=== PATIENT | female | born 1950 | race Caucasian/White ===

== ENCOUNTER 2021-04-11 12:12 | Emergency (ER) | payer OTHER, SELFPAY ==
[2021-04-11] VITALS (16 sets, daily range): BP systolic 138–159; BP diastolic 54–93; PULSE 53–65; RESP 12–24; TEMP 36.8; O2SAT 90–99
--- NOTE | ~2021-04-11 | XR_ITS ---
EXAMINATION: XR chest 2V DATE: 04/11/2021 13:06 INDICATION: Shortness of breath. Cough and wheezing. TECHNIQUE: Frontal and lateral views of the chest were obtained. COMPARISON: Chest 2 views 11/02/2010 FINDINGS: There are airspace opacities in left mid and lower lung zones. No pleural effusion or pneum othorax. Cardiomegaly is noted. There is a left chest wall pacer with leads in the right atrium and r ight ventricle. IMPRESSION: 1. Airspace opacities in left mid and lower lung zones, consistent with atelectasis versus pneumonia. 2. Cardiomegaly. Reviewed, dictated and finalized at location A. WORKER GENERAL IMPRESSION: 1. Airspace opacities in left mid and lower lung zones, consistent with atelect asis versus pneumonia. 2. Cardiomegaly.
--- NOTE | 2021-04-11 12:26 | ECG_ITS ---
Measurements Intervals [place] Rate: 65 P: 80 NC: 186 QRS: 3 QRSD: 84 T: 44 QT: 403 QTc: 419 Interpretive Statements SINUS RHYTHM LOW QRS VOLTAGE IN PRECORDIAL LEADS BORDERLINE ECG Electronically Signed On 04-11-2021 13:10:58 AIR BRUSH OPERATOR by Dwight Emery D.O.
[2021-04-11 13:04] LABS: Alanine Aminotransferase 21 U/L (4-35); Albumin Level 3.6 g/dL (3.5-5.1); Alkaline Phosphatase 99 U/L (38-126); Anion Gap 7 mmol/L (8-16); Aspartate Amino Transferase 26 U/L (14-36); Bilirubin,Total 0.6 mg/dL (0.2-1.3); Blood Urea Nitrogen 14 mg/dL (7-17); Calcium 8.9 mg/dL (8.4-10.2); Carbon Dioxide 24 mmol/L (22-30); Chloride 107 mmol/L (98-107); Estimated CRCL calculation 75 ml/min; Estimated Glomerular Filt Rate > 60; Glucose 101 mg/dL (65-110); Sodium 138 mmol/L (137-145)
[2021-04-11 13:12] LABS: Basophils Percent Auto 0.2 % (0.2-1.2); Hematocrit 41.5 % (37.0-47.0); Hemoglobin 13.6 g/dL (12.0-15.0); Immature Granulocyte Absolute 0.02 K/mm3 (0.00-0.031); Immature Granulocyte Percent A 0.3 % (0-0.5); Immature Platelet Fraction Pct 3.1 % (0.9-11.2); Lymphocytes Absolute Auto 1.29 K/mm3 (0.9-3.2); Lymphocytes Percent Auto 19.9 % (18.3-44.2); Mean Corpuscular HGB Conc 32.8 g/dl (32-36); Mean Corpuscular Hemoglobin 29.8 pg (26-34); Mean Corpuscular Volume 90.8 fl (80-100); Mean Platelet Volume 10.1 fl (7.4-10.4); Monocytes Absolute Auto 0.4 K/mm3 (0.1-0.6); Monocytes Percent Auto 6.6 % (2.6-8.5); Neutrophils Absolute Auto 4.7 K/mm3 (1.3-6.7); Platelet Count Result 131 k/mm3 (150-375); Red Blood Count 4.57 M/mm3 (4.2-5.4); Red Cell Distribution Width 13.5 % (11.5-14.5); White Blood Count 6.5 K/mm3 (4.5-10.0)
--- NOTE | 2021-04-11 14:01 | ED.SOB ---
HPI - SOB/Dyspnea General Chief Complaint: Shortness of Breath/Dyspnea Stated Complaint: influenza/diff breathing Time Seen by Provider: 04/11/21 13:26 Source: patient History of Present Illness HPI Narrative: Patient presents with shortness of breath. Reports a history of COPD and is on chronic oxygen at 4 L at home. She initially presented to [place] was diagnosed with flu a few days ago was discharged home with Tamiflu and cough suppressants. Yesterday afternoon she had increasing shortness of breath which was worse today so she came to the ER for evaluation. Reports a productive cough and difficulty getting enough air but denies any focal areas of pain. Denies any lightheadedness denies any chest pain denies any nausea or vomiting. Related Data Allergies Allergy/AdvReac Type Severity Reaction Status Date / Time No Known Allergies Allergy Unverified 11/01/10 16:46 Review of Systems Review of Systems: CONSTITUTIONAL: Denies fever, chills, or sweats. EYES: Denies visual changes, redness, or discharge. ENT: Denies rhinorrhea, congestion, sore throat, or otalgia. CARDIOVASCULAR: Denies chest pain, palpitations, or edema. RESPIRATORY: Reports cough and shortness of breath GASTROINTESTINAL: Denies abdominal pain, nausea, vomiting, or diarrhea. GENITOURINARY: Denies dysuria or hematuria. SKIN: Denies rash or itching. MUSCULOSKELETAL: Denies back pain, joint pain, or myalgia. NEUROLOGIC: Denies headache, numbness, dizziness, or weakness. PSYCHIATRIC: Denies anxiety or depression. All systems reviewed & are unremarkable except as noted in HPI and below PMFSH Past Medical History Medical History (Updated 04/11/21 @ 16:53 by Yohannes Montana MD) COPD (chronic obstructive pulmonary disease) Social History Social History (Updated 04/11/21 @ 14:02 by Yohannes Montana MD) Substance use: never Exam Narrative: GENERAL: Well-appearing, well-nourished, and in no acute distress. HEAD: Normocephalic, atraumatic. EYES: PERRLA and EOMI. ENT: Nares clear, no rhinorrhea or epistaxis. Mucous membranes moist. NECK: Supple. No masses. No JVD CHEST: Diminished aeration all lung morales with diffuse wheezing HEART: Regular rate and rhythm. No murmur heard. Normal peripheral pulses. ABDOMEN: Soft, nontender, nondistended, normal active bowel sounds. EXTREMITIES: Normal range of motion. No edema. SKIN: Warm, dry, no rash. NEURO: No focal deficits. Alert and oriented x3. PSYCH: Normal mood and affect. Course Reevaluation(s) Reevaluation #1: Patient reports feeling much improved after DuoNeb therapy. Patient feels comfortable managing her symptoms at home she is satting 96% on room air Date: 04/11/21 Time: 16:48 Vital Signs Vital signs: Vital Signs Temperature 36.8 C 04/11/21 12:22 Pulse Rate 56 L 04/11/21 12:22 Respiratory Rate 24 H 04/11/21 12:22 Blood Pressure 159/71 H 04/11/21 12:22 Pulse Oximetry 90 04/11/21 12:22 Temperature 36.8 C 04/11/21 12:22 Pulse Rate 56 L 04/11/21 17:18 Respiratory Rate 19 04/11/21 17:18 Blood Pressure 154/77 H 04/11/21 17:18 Pulse Oximetry 95 04/11/21 17:18 MDM - SOB/Dyspnea MDM Narrative Medical decision making narrative: H&P as above, vss, pt looks clinically well, exam diffuse wheezing initially repeat exam improved, labs clinically unremarkable, img with atelectasis versus pneumonia, additional labs/img considered, symptomatic relief available as needed, on reevaluation pt continues to looks clinically well. Suspect continued influenza infection however given her history of COPD will treat for exacerbation as well, dns severe sepsis consider dehydration, pneumothorax. plan to tx/monitor as op w/ pcm f/u findings/plan discussed with pt, pt agree/comfortable with plan, return precautions given Lab Data Result diagrams: 04/11/21 12:35 04/11/21 12:35 Labs: Lab Results 04/11/21 04/11/21 Range/Units 12:35 12:35 WBC 6.5 (
[2021-04-11] MEDS: ALBUTEROL SULFATE NEB 2.5 MG/0.5 ML INH 15 MG INHALATION (14:25)
[2021-04-11] MEDS: IPRATROPIUM BR 0.02% INH SOLN 0.5 MG/2.5 ML VIAL 1.5 MG INHALATION (14:25)
[2021-04-11] MEDS: methylPREDNISolone SOD SUCC 125 MG VIAL IV PUSH (14:36)
--- NOTE | 2021-04-11 17:17 | PC.NURSE ---
Educated pt on diagnosis of COPD and Pneumonia pt states understanding and will take medication as prescribed
== END 2021-04-11 17:19 | disposition home or self-care (01) ==
PROVIDERS: Emergency Medicine; Emergency Provider Emergency Medicine; PCP Family Medicine Sports Medicine
DX: J44.9 Chronic obstructive pulmonary disease, unspecified (principal); Z99.81 Dependence on supplemental oxygen
CPT/HCPCS: 36415; 71046; 80053; 85025; 85055; 93005; 94640; 96374; 99284; J2930

== ENCOUNTER → 2021-07-13 03:04 | Outpatient (CLI) | payer OTHER, SELFPAY ==
[2021-07-13 12:16] LABS: SARS-CoV-2 RNA PCR Negative
== END ==
PROVIDERS: PCP Family Medicine Sports Medicine; Visit Provider Specialist
DX: Z01.812 Encounter for preprocedural laboratory examination (principal); Z20.822 Contact with and (suspected) exposure to COVID-19
CPT/HCPCS: C9803; U0003; U0005

== ENCOUNTER 2021-07-16 00:34 | Day surgery (SDC) | payer OTHER, SELFPAY ==
[2021-07-16] VITALS (7 sets, daily range): BP systolic 124–136; BP diastolic 57–75; PULSE 56–63; RESP 16–20; TEMP 36.3; O2SAT 96–98; BMI 51.8
[2021-07-16 09:29] LABS: Basophils Percent Auto 0.2 % (0.2-1.2); Hematocrit 46.3 % (37.0-47.0); Hemoglobin 14.9 g/dL (12.0-15.0); Immature Granulocyte Absolute 0.01 K/mm3 (0.00-0.031); Immature Granulocyte Percent A 0.2 % (0-0.5); Lymphocytes Absolute Auto 2.26 K/mm3 (0.9-3.2); Mean Corpuscular HGB Conc 32.2 g/dl (32-36); Mean Corpuscular Hemoglobin 28.8 pg (26-34); Mean Corpuscular Volume 89.6 fl (80-100); Mean Platelet Volume 10.9 fl (7.4-10.4); Monocytes Absolute Auto 0.5 K/mm3 (0.1-0.6); Monocytes Percent Auto 8.2 % (2.6-8.5); Neutrophils Absolute Auto 3.3 K/mm3 (1.3-6.7); Neutrophils Percent Auto 54.4 % (45.5-73.1); Platelet Count Result 161 k/mm3 (150-375); Red Blood Count 5.17 M/mm3 (4.2-5.4); Red Cell Distribution Width 13.8 % (11.5-14.5); White Blood Count 6.1 K/mm3 (4.5-10.0)
[2021-07-16 09:42] LABS: Anion Gap 11 mmol/L (8-16); Blood Urea Nitrogen 23 mg/dL (7-17); Calcium 9.1 mg/dL (8.4-10.2); Carbon Dioxide 25 mmol/L (22-30); Chloride 106 mmol/L (98-107); Estimated CRCL calculation 62 ml/min; Estimated Glomerular Filt Rate 55; Glucose 119 mg/dL (65-110); Potassium 3.8 mmol/L (3.4-5.0); Sodium 142 mmol/L (137-145)
[2021-07-16 09:44] LABS: INR 1.1; Prothrombin Time 13.5 Seconds (11.1-14.7)
--- NOTE | 2021-07-16 10:06 | WPDMODSED ---
Moderate Sedation Note-Pt Data Patient Data Diagnosis: Sick sinus syndrome with permanently implanted pacemaker at HAO coronary artery disease with previous PCI morbid obesity Present Complaint: this is a 71-year-old woman with coronary disease and a chronically implanted pacemaker for sick sinus syndrome. She also has a history of paroxysmal atrial fib and is currently in sinus rhythm. She has a pacemaker check in the office recently demonstrating HAO he is admitted today for generator change. Procedure to be performed/Plan: Pacemaker generator change Allergies Allergy/AdvReac Type Severity Reaction Status Date / Time adhesive tape AdvReac Rash Verified 07/16/21 09:14 Home Medications Medication Instructions Recorded Confirmed Type Anoro Ellipta 1 puff DAILY 07/16/21 07/16/21 History Bumex 2 mg PO DAILY 07/16/21 07/16/21 History Crestor 20 mg PO DAILY 07/16/21 07/16/21 History Effexor XR 150 mg PO DAILY 07/16/21 07/16/21 History Kenalog 0.1 % PRN 07/16/21 07/16/21 History Klor-Con 20 meq PO DAILY 07/16/21 07/16/21 History Nitrostat 0.4 mg PRN 07/16/21 07/16/21 History Zoloft 100 mg PO BID 07/16/21 07/16/21 History albuterol 90 mcg DAILY 07/16/21 07/16/21 History amlodipine 2.5 mg PO DAILY 07/16/21 07/16/21 History apixaban 5 mg PO BID 07/16/21 07/16/21 History levothyroxine 275 mcg PO DAILY 07/16/21 07/16/21 History nitroglycerin 400 mcg BYMOUTH PRN 07/16/21 07/16/21 History nystatin 1 dose TOPICAL PRN 07/16/21 07/16/21 History potassium chloride 20 meq PO DAILY 07/16/21 07/16/21 History sotalol 80 mg PO BID 07/16/21 07/16/21 History Sedation/Anesthesia: No previous sedation/anesthesia problems (including family history). [facility] Past Medical History Medical History (Updated 04/11/21 @ 16:53 by Yohannes Montana MD) COPD (chronic obstructive pulmonary disease) Social History Social History (Updated 04/11/21 @ 14:02 by Yohannes Montana MD) Substance use: never Mod Sed Physical Exam Physical Exam Pre Procedural Exam: Normal: Throat, Airway, Lungs, Heart Size, Heart Rate, Heart Rhythm, Neuro Exam and Extremities and Variation: Appearance ( morbidly obese lady no distress) Hours since solid foods: 12 Hours since liquid intake: 12 Mallampati Classification: class III Internal Medicine - PN: Obj Da Vital Signs Vital Signs: Vital Signs - 24 hr 07/16/21 09:17 Temperature 36.3 C L Pulse Rate 56 L Respiratory Rate 20 Blood Pressure 136/75 Pulse Oximetry 97 Labs CBC & Chem 7: 07/16/21 09:21 07/16/21 09:21 Labs: Laboratory Results - last 24 hr 07/16/21 07/16/21 07/16/21 09:21 09:21 09:21 WBC 6.1 RBC 5.17 Hgb 14.9 Hct 46.3 MCV 89.6 MCH 28.8 MCHC 32.2 RDW 13.8 Plt Count 161 MPV 10.9 H Immature Gran % (Auto) 0.2 Neut % (Auto) 54.4 Lymph % (Auto) 37.0 [place] % (Auto) 8.2 Eos % (Auto) 0.0 Baso % (Auto) 0.2 Lymph # (Auto) 2.26 [place] # (Auto) 0.5 Eos # (Auto) 0.0 Baso # (Auto) 0.0 Abs Immat Gran (auto) 0.01 Absolute Neuts (auto) 3.3 Absolute Nucleated RBC 0.0 Nucleated RBC % 0.0 PT 13.5 INR 1.1 Sodium 142 Potassium 3.8 Chloride 106 Carbon Dioxide 25 Anion Gap 11 BUN 23 H Creatinine 1.00 Estim Creat Clear Calc 62 Estimated GFR 55 L Glucose 119 H Calcium 9.1 ASA Classification/Sedation ASA Classification/Sedation ASA Class: III Emergent: No Risks: Risks, benefits and alternatives explained and patient/family accepted plan for sedation. Patient re-evaluated immediately prior to sedation.
--- NOTE | 2021-07-16 11:00 | ECG_ITS ---
Measurements Intervals [place] Rate: 59 P: 105 NV: 262 QRS: 17 QRSD: 93 T: 75 QT: 465 QTc: 464 Interpretive Statements ELECTRONIC ATRIAL PACEMAKER LOW QRS VOLTAGE IN PRECORDIAL LEADS [QRS DEFLECTION < 1.0 mV IN CHEST LEADS] COMPARED TO ECG 04/11/2021 12:30:38 ATRIAL PACING IS NOW SEEN Electronically Signed On 07-16-2021 14:32:09 CDT by Ramy Perez M.D.
--- NOTE | 2021-07-16 11:13 | P.PCNCC_ITS ---
Cardiac Cath Procedure Note Date of procedure:: 07/16/21 Performing physician:: Ramy Perez MD Indication:: permanent dual-chamber pacemaker for sick sinus syndrome found to be at HAO Brief clinical history:: this is a 71-year-old woman with coronary disease paroxysmal AFib and sick sinus syndrome for which he has a permanently implanted pacemaker device. Routine follow-up the device has been found to be at HAO. Procedure Procedure performed:: Explant of depleted pulse generator implant new dual-chamber pulse generator Sedation/Medication given:: fentanyl 50 mg Versed 2 mg case start time 10:41 a.m. case end time 11:08 a.m. Access site:: chronically implanted pocket in the left anterior chest wall Estimated blood loss:: minimal Procedure note:: patient was brought to the cardiac catheterization lab in the postabsorptive state the chronically implanted pacemaker device was easily identified in the left anterior chest wall. The area was prepped and draped in the normal sterile fashion. Anesthesia was then given above the pocket with 1% lidocaine. An incision was then made in the skin using a plasma blade and electrocautery was used to provide cutaneous hemostasis. The same PlasmaBlade was used to dissect the subcutaneous tissue and identify the fibrous pocket and this was then opened as well. A Metzenbaum scissors was used to resect some of the fibrous pocket the device was then easily removed from the pocket with the attached leads and was visually unremarkable in appearance. The leads were disconnected from the depleted generator using the torque wrench in the into connected to the new generator using the same torque wrench. The and pocket was irrigated with Ancef infused saline. Following this the entire assembly was placed back in the chronically created pocket. The incision was then closed in layers using 3-0 Vicryl in a interrupted fashion for the subcutaneous tissue and 4-0 Vicryl in a subcuticular running fashion for the skin. The wound was dressed with an Aquacel dressing. The patient tolerated the procedure well there were no apparent complications. Findings:: the explanted device is a Medtronic dual-chamber pacemaker model IPG RVDR01. serial [id number] originally implanted 11/01/2010. The new device is a Medtronic dual-chamber pacemaker model WIDR01. serial [id number]. device is programmed in the AAIR> DDDR mode. Lower rate limit 60 upper rhythm at 1:30 a.m. av delay 180/150 milliseconds. The atrial lead is a Medtronic bipolar lead [id number] serial [id number] the P waves are sensed at 1.5 mV the threshold is 1.0 volts at 0.4 milliseconds pacing impedance 494 Ohms. The ventricular lead is a Medtronic bipolar lead model [id number] serial number [id number]. R waves are sensed at 7.5 mV threshold 0.75 volts at 0.4 milliseconds pacing impedance 532 Ohms. Conclusion:: 1. Successful uncomplicated explantation of depleted dual- chamber pulse generator 2. successful uncomplicated implantation of new dual-chamber pulse generator for ongoing treatment of sick sinus syndrome in this 71-year-old woman who also has coronary artery disease and paroxysmal atrial fibrillation. Ramy Perez MD FACC
--- NOTE | 2021-07-16 13:41 | SUR.PHASEII ---
Discharge instruction reviewed with pt, verbalized understanding. escorted off floor.
== END 2021-07-16 13:42 | disposition home or self-care (01) ==
PROVIDERS: PCP Family Medicine Sports Medicine; Visit Provider Specialist
PROC: 0JPT0PZ Removal of Cardiac Rhythm Related Device from Trunk Subcutaneous Tissue and Fascia, Open Approach (ICD-10-PCS; CPT 33228; principal; 2021-07-16 10:00)
DX: Z45.010 Encounter for checking and testing of cardiac pacemaker pulse generator [battery] (principal); I25.10 Atherosclerotic heart disease of native coronary artery without angina pectoris; I48.0 Paroxysmal atrial fibrillation; J44.9 Chronic obstructive pulmonary disease, unspecified; Z79.51 Long term (current) use of inhaled steroids; Z79.01 Long term (current) use of anticoagulants
CPT/HCPCS: 33228; 36415; 80048; 85025; 85610; 93005; C1785; J0690; J2250; J3010; J7040

== ENCOUNTER 2024-09-02 15:01 | Outpatient (CLI) | payer MEDICARE, MEDICAID, SELFPAY ==
--- NOTE | ~2024-09-02 | CT_ITS ---
CT Scan of the Chest without Contrast: Clinical Indication: Multiple lung nodules Technique: Contiguous sections were acquired throughout the chest without intravenous contrast. Dose reduction technique was used on this scan by utilizing automated exposure control and iterative recon struction technique. The dose-length product (DLP) was 464.71 mGy-cm. Findings: There is no evidence of any significant mediastinal, hilar or axillary lymphadenopathy. Extensive cor onary artery calcifications are present. Minimal pericardial effusion present. There is no evidence of pleural or pericardial effusion. Several scattered, peripheral 2 mm pulmonary nodules are present, most likely benign. Images through the upper abdomen reveal no abnormalities. Impression: Several scattered, peripheral 2 mm pulmonary nodules, most likely benign. Minimal pericardial effusion. Reviewed, dictated and finalized at [facility]. Impression: Several scattered, peripheral 2 mm pulmonary nodules, most likely benign. Minimal pericardial effusion.
--- OUTSIDE RECORDS SUMMARY | 2024-09-02 15:32 | XMS_ITS | Encounter Summary ---
Author Organization [facility] Address [facility] [place] [address] Care Team Providers Care Pattern Cutter Name Role Phone Dilan Metzger MD Primary Care Provider [phone] Encounter Details Date Type Department Care Team (Latest Contact Info) Description 12/29/2017 Abstract [facility] Alek Gant MD Social History Tobacco Use Types Packs/Day Years Used Date Smoking Tobacco: Never Assessed Comments Unknown Sex and Gender Information Value Date Recorded Sex Assigned at Not on file Legal Sex Female 7:50 PM CDT Gender Identity Not on file Sexual Orientation Not on file documented as of this encounter Plan of Treatment Upcoming Encounters Date Type Department Care Team (Late st Contact Info) Description 09/28/2024 1:20 PM CDT Office Visit [facility] Family & Internal Medicine [facility] [address] [place] [address] Dilan Metzger MD [address] [place] [address] documented as of this encounter Visit Diagnoses Not on filedocumented in this encounter Additional Health Concerns Infection Onset Date Last Indicated Resolved Time COVID-19 Rule Out 02/18/2020 02/18/2020 02/20/2020 9:00 AM CDT documented as of this encounter Care Teams Pattern Cutter Relationship Specialty Start Date End Date Dilan Metzger MD [address] [place] [address] PCP - General FAMILY PRACTICE 02/18/18 documented as of this encounter
--- OUTSIDE RECORDS SUMMARY | 2024-09-02 15:32 | XMS_ITS | Encounter Summary ---
Author Organization [facility] Address [facility] [place] [address] Care Team Providers Care Candlemaking Laborer Name Role Phone Dilan Metzger MD Primary Care Provider [phone] Encounter Details Date Type Department Care Team (Late st Contact Info) Description 10/08/2017 Abstract [facility] CONVERSION [address] [place] [address] , Generic ConversionMD Social History Tobacco Use Types Packs/Day Years [...] Description 09/28/2024 1:20 PM CDT Office Visit [facility] Family & Internal Medicine [facility] [address] [place] [address] Dilan Metzger MD [address] [place] [address] documented as of this encounter Visit Diagnoses Not on filedocumented in this encounter Additional Health Concerns Infection Onset Date Last Indicated Resolved Time COVID-19 Rule Out 02/18/2020 02/18/2020 02/20/2020 9:00 AM CDT documented as of this encounter Care Teams Candlemaking Laborer Relationship Specialty [place] [address] [place] [address] PCP - General FAMILY PRACTICE 02/18/18 documented as of this encounter
--- OUTSIDE RECORDS SUMMARY | 2024-09-02 15:32 | XMS_ITS | Encounter Summary ---
Author Organization [facility] Address [address] [place] [address] Care Team Providers Care Filemaker Developer Name Role Phone Dilan Metzger MD Primary Care Provider [phone]- [phone] Encounter Details Date Type Department Care Team (Late st Contact Info) Description 11/07/2017 Abstract [facility] Conversion Dilan Metzger MD [address] [phone] Social History Tobacco Use Types Packs/Day Years Used Date Smoking Tobacco: Never Assessed Comments Unknown Sex and Gender Information Value Date Recorded Sex Assigned at Not on file Legal Sex Female 7:50 PM CDT Gender Identity Not on file Sexual Orientation Not on file documented as of this encounter Miscellaneous Notes * Letter - Dilan Metzger MD - 11/07/2017 12:00 AM CDT 10 November 2017 Devorah Servin [address] [place] [address] Dear Devorah Servin, Thank you for the trust you have placed in [facility] as your health care team. You are a valued patient at our office and we hope you are well. We are concerned about your health and noticed that you did not keep your last scheduled appointment on 11/07/2017. If your appointment has not been rescheduled, please call the office at to reschedule your appointment as soon as possible. As you are aware, we are dedicated to caring for the whole patient, not just treating an illness. When we schedule appointments, we set aside time and professional resources to meet the individual needs of our patients, including time for one-on-one consultation. When a patient does not come to an appointment or cancels the appointment without sufficient notice, our health care team is not able to take time needed to care for another patient. Cancelling within at least 24 hours of your appointment allows us to prepare our schedule for other patients who need timely care. Please be aware, per our organization's no-show policy, if at least 24 hours' notice is not given two times in one year, the practice will impose a $25 no- show fee. We understand there are occasions when a patient must miss an appointment due to unforeseen circumstances. In this event, please call our office and cancel your appointment as soon as you are able. This allows our staff to schedule another patient in need of care. We are committed to providing you the best care possible. We hope to hear from you soon. Sincerely, [facility] cc: Patient Medical Record PUMPING STATION HELPER documented in this encounter Plan of Treatment Upcoming Encounters Date Type Department Care Team (Late st Contact Info) Description 09/28/2024 1:20 PM CDT Office Visit [facility] Family & Internal Medicine [facility] [address] [place] [address] Dilan Metzger MD [address] [address] documented as of this encounter Visit Diagnoses Not on filedocumented in this encounter Additional Health Concerns Infection Onset Date Last Indicated Resolved Time COVID-19 Rule Out 02/18/2020 02/18/2020 02/20/2020 9:00 AM CDT documented as of this encounter Care Teams Filemaker Developer Relationship Specialty Start [place] [id number] [place] [address] PCP - General FAMILY PRACTICE 02/18/18 documented as of this encounter
--- OUTSIDE RECORDS SUMMARY | 2024-09-02 15:32 | XMS_ITS | Clinical Summary ---
Author Organization [facility] Address [address] [place] [address] Care Team Providers Care Physicist Astrophysics Name Role Phone Dilan Metzger MD Primary Care Provider + Allergies Active Allergy Reactions Criticality Noted Date Comments Adhesive Rash Medium 01/09/2021 Adhesive Tape-Silicones Rash Medium Medications nitroglycerin (nitroglycerin) 400 mcg/spray spray place 1 spray (0.4MG) by translingual route onto or under the tongue at the first sign of an attack; no more than 3 sprays are recommended within a 15 minute period. 1 0 1 Active Additional Information Patient not taking.Reported on 07/29/2022 sertraline (ZOLOFT) 100 mg tablet take 1 by Oral route 2 times every day 0 0 7 Active levothyroxine (SYNTHROID, LEVOTHROID) 200 mcg tablet take 1 by Oral route once 0 0 5 Active levothyroxine (SYNTHROID, LEVOTHROID) 50 mcg tablet take 1 tablet by oral route every day 0 0 5 Active potassium chloride (KLOR-CON) 20 mEq packet Take 20 mEq by mouth daily. 30 tablet 11 8 Active apixaban (ELIQUIS) 5 mg tablet Take 1 tablet (5 mg total) by mouth 2 (two) times a day. 180 tablet 1 8 Active venlafaxine XR (EFFEXOR-XR) 150 mg 24 hr capsule Take 1 capsule (150 mg total) by mouth every morning 1 Active umeclidinium-vi lanteroL (Anoro Ellipta) 62.5-25 mcg/actuation blister with device INHALE 1 PUFF BY MOUTH EVERY DAY 0 Active albuterol HFA (PROVENTIL HFA,VENTOLIN HFA,PROAIR HFA) 90 mcg/actuation inhaler Inhale 8 Active triamcinolone (KENALOG) 0.1 % cream APPLY TO AFFECTED AREA TWICE A DAY 0 Active nystatin cream Apply topically 2 (two) times a day 1 Active nitroglycerin (NITROSTAT) 0.[address] 1 tablet (0.4 mg total) under the tongue every 5 (five) minutes as needed for chest pain Active Ozempic 0.25 mg or 0.5 mg(2 mg/1.5 mL) pen injector injection INJECT 0.5 MG INTO THE SKIN EVERY 7 DAYS. 2 Active oxygen Inhale continuously as needed Active rosuvastatin (Crestor) 20 mg tablet Take 1 tablet (20 mg total) by mouth daily 90 tablet 3 3 Active traZODone (DESYREL) 50 mg tablet trazodone 50 mg tablet 3 Active losartan (COZAAR) 50 mg tablet losartan 50 mg tablet TAKE 1 TABLET BY MOUTH EVERY DAY 3 Active aspirin 81 mg enteric coated tablet Take 1 tablet (81 mg total) by mouth daily 30 tablet 11 3 Active Trulicity 1.5 mg/0.5 mL pen injector Inject 0.5 mL (1.5 mg total) under the skin once Once a week Active sotaloL (BETAPACE) 80 mg tablet TAKE 1 TABLET BY MOUTH 2 TIMES A DAY. 180 tablet 3 3 Active bumetanide (BUMEX) 2 mg tablet TAKE 1 TABLET BY MOUTH EVERY DAY 90 tablet 3 3 Active Active Problems Problem Noted Date Diagnosed Date Chest pain 10/25/2022 Depression 10/25/2022 COPD (chronic obstructive pulmonary disease) NSTEMI (non-ST elevated myocardial infarction) 0 10/25/2022 HLD (hyperlipidemia) 07/03/2021 Pulmonary HTN (CMS/HCC) 10/27/2017 Encounter for monitoring sotalol therapy 018 Chronic heart failure with preserved ejection fr action 01/08/2017 Morbid obesity with BMI of 50.0-59.9, adult 10/2016 Sick sinus syndrome 01/08/2017 Benign hypertension 08/01/2015 Overview (08/09/2016): HTN (hypertension), benign SOFI on CPAP 08/01/2015 Overview (08/09/2016): SOFI on CPAP Coronary artery disease invo lving napaimute coronary artery of napaimute heart without angina pectoris 08/01/2015 Overview (08/09/2016): Coronary artery disease involving napaimute coronary artery of napaimute heart without angina pectoris Chronic anticoagulation 08/01/2015 Overview (08/09/2016): Chronic anticoagulation Presence of cardiac pacemaker 08/01/2015 Overview (11/03/2023): Medtronic Tanika Dual Pacemaker Dx; SSS, PAF. Gen change 07/16/2021-Uppstrom, chronic leads 11/01/2010 [employer] remote home monitoring Q3 months, Office pacer checks Q1 year. Patient transferred device management to Patient's [place], [place] Morbid obesity 08/01/2015 Overview (08/09/2016): Morbid obesity with BMI of 45.0-49.9, adult Paroxysmal atrial fibrillation ([facility]) 016 Overview (08/09/2016): Paroxysmal atrial fibrillation CHF (congestive heart failure) 08/01/2015 Overview (08/09/2016): Hypertensive heart disease with diastolic heart failure A-fib 09/18/2013 Overview (08/07/2016): ATRIAL FIBRILLATION Arteriosclerotic vascular disease 09/18/2013 Overview (08/09/2016): ASCVD Palpitations 11/13/2011 Hypothyroidism 11/13/2011 Atherosclerosis of coronary artery 11/13/2011 Malignant neoplasm of urinary bladder 11/13/2011 Thromboembolic disorder 11/13/2011 HTN (hypertension) 11/13/2011 Malignant neoplastic disease 11/07/2011 Ovarian retention cyst 11/07/2011 Resolved Problems Problem Noted Date Diagnosed Date Resolved Date SOFI on CPAP 10/25/2022 12/03/2022 Dyslipidemia 02/06/2021 05/08/2022 Surgical History Surgery Date Site/Laterality Comments OTHER SURGICAL HISTORY Hyperthyroidism tr; Now hypothyroid: OTHER SURGICAL HISTORY Sleep Apnea-Unable to tolerate CPAP: CHOLECYSTECTOMY Cholecystectomy CARDIAC STENT PLACEMENT Cardiac stents BLADDER SURGERY bladder surgery TONSILLECTOMY Tonsillectomy OTHER SURGICAL HISTORY D&C OTHER SURGICAL HISTORY Arrhythmias (P A. Fib; Tachy-Surjit, AFlutter, NSVT: PERCUTANEOUS TRANSLUMINAL CO RONARY ANGIOPLASTY 2010 Percutaneous Transluminal Coronary Angioplasty CORONARY STENT PLACEMENT Coronary Stent Placement Medical History Medical History Date Comments Hx Other Medical 2007 Hyperthyroidism tr; Now hypothyroid Hx Other Medical Morbid Obesity Hx Other Medical Sleep Apnea-Brenda ble to tolerate CPAP Hx Other Medical heart problems Anemia Anemia Hypertension Hypertension Depression Depression Hx Other Medical Arrhythmias (P A. Fib; Tachy-Surjit, AFlutter, NSVT Cardiovascular disease Coronary Artery Disease Family History Medical History Relation Name Comments Diabetes Mother 2 Diabetes mellit us; Relation Name Status Comments Mother 1 Alive Mother 2 Social History Tobacco Use Types Packs/Day Years Used Date Smoking Tobacco: Former Cigarettes Q uit: 1996 Smokeless Tobacco: Never Tobacco Cessation:Counseling Given: Not Answered Alcohol Use Standard Drinks/Week Comments Yes 0 (1 standard drink = 0.6 oz pur e alcohol) Social Connection and Isolat ion Panel [NHANES] Answer Date Recorded In a typical week, how many times do you talk on the phone with family, friends, or neighbors? More than three times a week 10/28/2022 How often do you get togethe r with friends or relatives? More than three times a week 10/28/2022 How often do you attend chur ch or denominational services? Never 10/28/2022 Do you belong to any clubs o r organizations such as synagogue groups, unions, fraternal or athletic groups, or school groups? No 10/28/2022 How often do you attend meet ings of the clubs or organizations you belong to? Never 10/28/2022 Are you , , di vorced, , never , or living with a partner? Never 10/28/2022 AUDIT-C Answer Date Recorded Q1: How often do you have a drink containing alc ohol? Monthly or less 10/28/2022 Q2: How many drinks containi ng alcohol do you have on a typical day when you are drinking? 1 or 2 10/28/2022 Q3: How often do you have si x or more drinks on one occasion? Never 10/28/2022 Overall Financial Resource Strain (CARDIA) Answe r Date Recorded How hard is it for you to pa y for the very basics like food, housing, medical care, and heating? Not hard at all 10/28/2022 Hunger Vital Sign Answer Date Recorded Within the past 12 months, y ou worried that your food would run out before you got the money to buy more. Never true 10/29/19 23 Within the past 12 months, t he food you bought just didn't last and you didn't have money to get more. Never true 10/28/2022 PRAPARE - Transportation Answer Date Re corded In the past 12 months, has l ack of transportation kept you from medical appointments or from getting medications? No 10/04 In the past 12 months, has l ack of transportation kept you from meetings, work, or from getting things needed for daily living? No 10/28/2022 Housing Stability Vital Sign Answer Kike e Recorded In the last 12 months, was t here a time when you were not able to pay the mortgage or rent on time? No 10/28/2022 In the last 12 months, how many places have you lived? 1 10/28/2022 In the last 12 months, was t here a time when you did not have a steady place to sleep or slept in a alf (including now)? No 10/28/2022 Personal Safety Answer Date Recorded Have you ever been in or are you currently in a harmful physical or emotional relationship or is someone making you feel afraid or unsafe? Denies 10/25/2022 Comments Unknown Sex and Gender Information Value Date Recorded Sex Assigned at Not on file Legal Sex Female 6:34 AM [employer] Gender Identity Not on file Sexual Orientation Not on file Obstetrics History Last Filed Vital Signs Vital Sign Reading Time Taken Comments Blood Pressure 114/74 12/03/2022 2:01 PM CDT Pulse 69 12/03/2022 2:01 PM CDT Temperature 36.2 C (97.1 F) 10/29/2022 11:00 AM CDT Respiratory Rate 18 10/29/2022 11:0 0 AM CDT Oxygen Saturation 96% 12/03/2022 2:01 PM CDT Inhaled Oxygen Concentration - - Weight 131.9 kg (290 lb 12.8 oz) 12/03/2022 2:01 PM CDT Height 160 cm (5' 3 ) 12/03/2022 2:01 PM CDT Body Mass Index 51.51 12/03/2022 2:01 PM CDT Plan of Treatment Health Maintenance Due Date Last Done Comments Breast Cancer Screening-Mammogram 1951 Colon Cancer Screening-Colonoscopy 1950 Depression Screening 1950 Hepatitis C Screening 1951 Osteoporosis Screening-Bone Density Scan 1951 DTaP/Tdap/Td Vaccine (1 - Tdap) 1962 Hepatitis B Screening 1969 Zoster Vaccine (1 of 2) 2001 Well Visit 65+ 01/13/2016 Pneumococcal vaccine 65+ (3 of 3 - PCV20 or PCV21) 03/07/2022 03/07/2017, 01/26/2014, 01/26/2014 Fall Risk Assessment 10/30/2023 10/29/2022 Influenza Vaccine (#1) 2024 8, 03/06/2018, 03/07/2017, Additional history exists Medical Devices Implanted Type Area General Practice Device Identifier Shelf Expiration Date Model / Serial / Lot Pacemaker-2010 Implanted:11/01 (Quantity not on file) Pacemaker Chest Medtronic SSS, PAF REVO MRI / [id number] / Insurance [facility] MEDICARE ADVANTAGE Advance Directives For more information, please contact: [phone] * Full Code (Latest Code Status on File) Date Activated Date Inactivated Comments 10/25/2022 6:14 PM 10/29/2022 6:33 PM Care Teams Physicist Astrophysics Relationship Specialty Start Date End Date Dilan Metzger MD [facility] - General 04/13/09
--- OUTSIDE RECORDS SUMMARY | 2024-09-02 15:32 | XMS_ITS | Clinical Summary ---
Author Organization [facility] Address [address] [place] [address] Care Team Providers Care Therapist Phys Name Role Phone Dilan Metzger MD Primary Care Provider [phone] Allergies Active Allergy Reactions Criticality Noted Date Comments Tape Rash Medium Medications * This document contains information received from the source organization and may not represent a complete record from that organization. sotalol 80 MG tablet Take 1 tablet (80 mg total) by mouth 2 (two) times daily. 021 Active nystatin creamIndications: Rash and nonspecific skin eruption Apply topically 2 (two) times daily. 30 g 1 021 Active nitroglycerin 0.4 MG SL tabletIndications :Coronary artery disease involving sitka coronary artery of sitka heart, unspecified whether angina present Place 1 tablet (0.4 mg total) under the tongue every 5 (five) minutes as needed for Chest Pain. Up to 3 tabs. Call 911 if symptoms persist. 30 tablet 021 Active albuterol (2.5 MG/3ML) 0.083% nebulizer solutionIndicatio ns:Chronic obstructive pulmonary disease, unspecified COPD type ([facility]/HCC) 3 ml every 4 to 6 hours 360 mL 021 Active potassium chloride CR (KLOR-CON M20) 20 MEQ tabletIndications :Hypokalemia Take 1 tablet (20 mEq total) by mouth 2 (two) times daily. 60 tablet 2 022 Active umeclidinium-daniel nterol (ANORO ELLIPTA) 62.5-25 MCG/ACT inhalerIndication s:Chronic obstructive pulmonary disease, unspecified COPD type ([facility]/HCC) Inhale 1 puff into the lungs daily. 60 each 5 022 Active albuterol sulfate HFA 108 (90 Base) MCG/ACT inhaler Inhale 1 puff into the lungs every 4 (four) hours as needed. Active acetaminophen-cod eine (TYLENOL #3) 300-30 MG tabletIndications :Chronic Pain Indications: Chronic Pain TAKE 1 TABLET BY MOUTH EVERY 6-8 HOURS NEEDED FOR PAIN 60 tablet 023 Active amLODIPine (NORVASC) 2.5 MG tabletIndications :Essential hypertension Take 1 tablet (2.5 mg total) by mouth daily. 90 tablet 1 023 Active clobetasol (TEMOVATE) 0.05 % creamIndications: Dermatitis Apply topically 2 (two) times daily. Apply to rash on both legs twice daily for 14 days 30 g 023 Active losartan (COZAAR) 50 MG tabletIndications :Essential hypertension TAKE 1 TABLET BY MOUTH EVERY DAY 90 tablet 1 024 Active traZODone (DESYREL) 100 MG tabletIndications :Primary insomnia Take 1 tablet (100 mg total) by mouth nightly at bedtime. 90 tablet 1 024 Active levothyroxine (SYNTHROID) 50 MCG tabletIndications :Hypothyroidism Take 1 tablet by mouth daily with 200mcg dose and 75mcg dose for total daily dose of 325mcg. 90 tablet 1 024 Active bumetanide (BUMEX) 2 MG tabletIndications :Chronic congestive heart failure, unspecified heart failure type ([facility]CC) Take 1 tablet by mouth daily 024 Active metOLazone (ZAROXOLYN) 5 MG tabletIndications :Chronic congestive heart failure, unspecified heart failure type ([facility]) Take 1 tablet by mouth every Friday and 024 Active levothyroxine (SYNTHROID) 75 MCG tabletIndications :Hypothyroidism, unspecified type TAKE 1 TABLET BY MOUTH EVERY DAY IN THE MORNING 90 tablet 1 025 Active levothyroxine (SYNTHROID) 200 MCG tabletIndications :Hypothyroidism, unspecified type TAKE 1 TABLET BY MOUTH EVERY MORNING WITH A 75MCG TABLET. DAILY DOSE OF 275MCG DAILY 90 tablet 1 025 Active rosuvastatin (CRESTOR) 20 MG tabletIndications :Mixed hyperlipidemia TAKE 1 TABLET BY MOUTH EVERY DAY 90 tablet 1 025 Active ELIQUIS 5 MG tabletIndications :Longstanding persistent atrial fibrillation ([facility]) TAKE 1 TABLET BY MOUTH TWICE A DAY 180 tablet 1 025 Active venlafaxine XR (EFFEXOR-XR) 150 MG 24 hr capsuleIndication s:Depression, unspecified depression type TAKE 1 CAPSULE BY MOUTH EVERY DAY IN THE MORNING. 90 capsule 025 Active venlafaxine XR (EFFEXOR-XR) 150 MG 24 hr capsuleIndication s:Depression, unspecified depression type TAKE 1 CAPSULE (150 MG) BY MOUTH EVERY MORNING. PLEASE CALL OFFICE TO SCHEDULE FOLLOW UP. 90 capsule 024 2024 Discontinued permethrin (ELIMITE) 5 % creamIndications: Head lice Apply topically once for 1 dose. Apply head to toe before bedtime, leave on 8-14 hours, then rinse off x1 application 60 g 025 2024 Active Problems Problem Noted Date Diagnosed Date Body mass index (BMI) 50.0-59.9, adult 4 Mixed stress and urge urinary incontinence 01/20 Chest pain 10/25/2022 NSTEMI (non-ST elevated myoc ardial infarction) ([facility]) 10/25/2022 Chronic back pain 04/17/2022 Overview (03/23/2024): Last Assessment & Plan: Condition: stable Take pain medication as prescribed. Practice non-pharmacological pain reduction techniques/interventions such as, deep breathing exercises, massage, gel packs, if indicated to be safe by PCP. Monitor for worsening of back pain in combination with other signs and symptoms of worsening disease and see PCP as soon as possible. Follow up in: if symptoms worsen or fail to improve Major depression, recurrent 04/17/2022 Overview (03/23/2024): Last Assessment & Plan: Condition: stable Depression screening done today - see results. Medications: Taking medications as prescribed If taking medications, do not stop treatment without consulting healthcare provider. If symptoms worsen or do not improve/stabilize, notify health care provider right away. If thoughts of harming self or others notify health care provider immediately &/or seek urgent/emergent care including calling Suicide Hotline (149 or ) or 911. Follow up in if symptoms worsen or fail to improve with PCP Stable angina 04/16/2022 Overview (03/23/2024): Last Assessment & Plan: Condition: stable Follow up in: if symptoms worsen or fail to improve Hypertension 08/19/2019 Pulmonary HTN ([facility]) 10/27/2017 Encounter for monitoring sotalol therapy 018 Multiple pulmonary nodules 01/30/2017 Chronic heart failure with p reserved ejection fraction ([facility]) 01/08/2017 Sick sinus syndrome ([facility]) 01/08/2017 Morbid obesity with body mass index of 50.0-59.9 in adult 12/22/2016 Restrictive ventilatory defect 12/22/2016 Morbid (severe) obesity due to excess calories 0 12/22/2016 Overview (03/23/2024): Last Assessment & Plan: Condition: stable Co-morbidities: Hypertension and Hyperlipidemia Follow up in: if symptoms worsen or fail to improve Afib ([facility]) 07/24/2016 Atherosclerosis of coronary artery 07/24/2016 Lymphedema 07/24/2016 CHF (congestive heart failure) ([facility]) 05/15/2016 Chronic edema 03/12/2016 Chronic anticoagulation 08/01/2015 Overview (03/23/2024): Chronic anticoagulation Morbid obesity 08/01/2015 Overview (03/23/2024): Morbid obesity with BMI of 45.0-49.9, adult Presence of cardiac pacemaker 08/01/2015 Overview (03/23/2024): Medtronic [place] Dual Pacemaker Dx; SSS, PAF. Gen change 07/16/2021-Uppstrom, chronic leads 11/01/2010 Carelink remote home monitoring Q3 months, Office pacer checks Q1 year. Patient transferred device management to [facility], [place], [place] Hypertensive heart disease w ith congestive heart failure ([facility]) 08/01/2015 Overview (03/23/2024): Last Assessment & Plan: Condition: stable Education: Regular follow up with PCP Pharmacy and Therapeutics: Member has filled prescribed medications: Yes: Taking as prescribed Member has working BP cuff: Yes: Recommended taking BP cuff and log to PCP/Specialist appointments Follow up in: if symptoms worsen or fail to improve Hyperlipidemia 02/01/2015 Hypoxemia 11/18/2014 COPD (chronic obstructive pu lmonary disease) ([facility]) 08/23/2014 SOFI (obstructive sleep apnea) 08/23/2014 Heart problem 08/18/2014 Kidney trouble 08/18/2014 Bladder cancer ([facility]) 08/18/2014 Shortness of breath 08/18/2014 Overview (03/24/2018): Description: quit in 1996 30 year x 1ppd Atrial fibrillation ([facility]) 09/18/2013 Overview (03/23/2024): ATRIAL FIBRILLATION Paroxysmal atrial fibrillation ([facility]) 09/18/2013 Overview (03/23/2024): Last Assessment & Plan: Condition: stable Follow up in: if symptoms worsen or fail to improve Paroxysmal atrial fibrillation Coronary artery disease of n ative artery of sitka heart with stable angina pectoris 09/18/2013 Overview (03/23/2024): ASCVD Venous insufficiency 02/09/2013 Depression 01/07/2013 History of MS (myocardial infarction) 01/07/2013 Hypothyroidism 11/13/2011 Overview (03/23/2024): No recent lab data in care everywhere Last Assessment & Plan: Condition: asymptomatic Discussed with Devorah the importance of medication compliance and conitnued monitoring. Follow up in: if symptoms worsen or fail to improve Palpitations 11/13/2011 Thromboembolic disorder ([facility]) 2011 Malignant neoplasm of urinary bladder ([facility]) 11/13/2011 Malignant neoplastic disease ([facility]) 0 11/07/2011 Ovarian retention cyst 11/07/2011 Resolved Problems Problem Noted Date Diagnosed Date Resolved Date Encounter for preventive health examination 08/25/2013 01/14/2020 Encounters Date Type Department Care Team Description 08/24/2024 Telephone [facility] Family & Internal Medicine [facility] [address] [place] [address] Dilan Metzger MD Other (Qualify for use of 02 at home ) 08/24/2024 [place] [address] Dilan Metzger MD Error 08/18/[address] [address] Dilan Metzger MD Medication 08/08/2024 Scan [facility] INFO SRVCS Scanned, [facility] 08/05/2024 Scan [facility] INFO SRVCS Scanned, [facility] 08/03/[address] [address] Dilan Metzger MD Orders 07/22/2024 Scan [facility] INFO SRVCS Scanned, [facility] from Last 3 Months Immunizations Immunization Administration Dates Next Due Fluzone High Dose - >Age 65 (Prefilled Syringe) 02/18/2020,03/11/2019 Influenza (Generic) 02/09/2013 Influenza Adult (Generic) 03/06/2018,07/2016,01/29/2016,2014,01/26/2014 Pneumococcal (Pneumovax 23) 01/26/2014 Pneumococcal (Prevnar 13) 03/07/2017,01/26/2014 Family History * Patient is adopted Medical History Relation Comments Diabetes Mother Cancer Sister Drug Abuse Sister Kidney Disease Sister Relation Status Comments Mother Sister Social History Tobacco Use Types Packs/Day Years Used Date Smoking Tobacco: Former Cigarettes Q uit: 11/02/1996 Passive Smoke Exposure: Past Smokeless Tobacco: Never Tobacco Cessation:Counseling Given: No Alcohol Use Standard Drinks/Week Comments Yes 0 (1 standard drink = 0.6 oz pur e alcohol) Holidays / Special Occasions PHQ-2 Answer Date Recorded Patient Health Questionnaire-2 Score 0 03/23/2024 Comments No Sex and Gender Information Value Date Recorded Sex Assigned at Not on file Legal Sex Female 7:50 PM CDT Gender Identity Not on file Sexual Orientation Not on file Last Filed Vital Signs Vital Sign Reading Time Taken Comments Blood Pressure 128/88 03/23/2024 1:54 PM CLIENT ARCHITECT Pulse 90 03/23/2024 1:54 PM CLIENT ARCHITECT Temperature 36.4 C (97.6 F) 03/23/2024 1:54 PM CLIENT ARCHITECT Respiratory Rate 20 03/23/2024 1:54 PM CLIENT ARCHITECT Oxygen Saturation 96% 03/23/2024 1:54 PM CLIENT ARCHITECT Inhaled Oxygen Concentration - - Weight 133.4 kg (294 lb) 03/23/2024 1:54 PM CLIENT ARCHITECT Height 157.5 cm (5' 2 ) 03/23/2024 1:54 PM CLIENT ARCHITECT Body Mass Index 53.77 03/23/2024 1:54 PM CLIENT ARCHITECT Plan of Treatment Upcoming Encounters Date Type Department Care Team (Late st Contact Info) Description 09/28/2024 1:20 PM CDT Office Visit [facility] Family & Internal Medicine [address] [address] Dilan Metzger MD [address] [place] [address] Health Maintenance Due Date Last Done Comments Colorectal Cancer Screening Colonoscopy (10 Years) 1951 Hepatitis C 1969 DTaP, Tdap and Td Vaccines ( 1 - Tdap) 1970 Zoster Vaccines (1 of 2) 2001 RSV Immunization or 60+ Years (1 - Risk 60-74 years 1-dose series) 2011 Annual Medicare Wellness Visit 01/13/2016 Pneumococcal Vaccine: 50+ Years (3 of 3 - PCV20 or PCV21) 03/07/2022 03/07/2017, 01/26/2014, 01/26/2014 COVID-19 Vaccine ( - 2023-2 5 season) 2024 PHQ-2 (Physician [place]) 05/05/2024 03/23/2024 Mammogram Screening 03/04/2025 03/04/2023, 08/28/2020, 04/06/2019 Colorectal Cancer Screening FIT/FOBT (1 Year) Discontinued 08/30/2017 Colorectal Cancer Screening FIT-DNA (3 Years) Discontinued 05/20/2022 Dexa Scan (General) Completed 03/04/2023 Meningococcal B Vaccine Aged Out No l onger eligible based on patient's age to complete this topic Meningococcal Vaccine Aged Out No kaylee reinaldo eligible based on patient's age to complete this topic RSV Immunizations Under 20 Months Aged Out No longer eligible based on patient's age to complete this topic Procedures Procedure Name Priority Date/Time Associated Diagnosis Comments BONE DENSITY GENERIC (SCAN ORDER) 03/04/2023 MAMMOGRAM GENERIC (SCAN ORDER) 03/04/2023 OCCULT BLOOD, FECES Routine 08/30/2017 1 0:00 AM CDT from Last 3 Months or Most Recently Relevant to Health Maintenance Results * BONE DENSITY GENERIC (03/04/2023) Anatomical Region Laterality Modality Other 03/04/2023 [facility] Scanned SCANNING Final Resu lt * MAMMOGRAM GENERIC (03/04/2023) Anatomical Region Laterality Modality Other 03/04/2023 [facility] Scanned SCANNING Final Resu lt * (ABNORMAL) OCCULT BLOOD, FECES (08/30/2017 10:00 AM CDT) OCCULT BLOOD FECAL POSITIVE(A ) NEGATIVE 08/30/2017 11:58 AM CDT [facility] 08/30/2017 10:0 0 AM CDT 08/30/2017 10:18 AM CDT us Generic Conversion Md FLORES BODY FLUIDS AND STOOLS ORDERABLES Final Result [facility] [address] [place] [address], [place] [phone] from Last 3 Months or Most Recently Relevant to Health Maintenance Insurance [place] [address] [place] [id number] Care Teams Therapist Phys Relationship Specialty [place] [address] [place] [address] PCP - General FAMILY PRACTICE 02/18/18
--- OUTSIDE RECORDS SUMMARY | 2024-09-02 15:32 | XMS_ITS ---
Author Organization [facility] Address [address] [place] [address] Care Team Providers Care Renal Dialysis Rn Name Role Phone Dilan Metzger MD Primary Care Provider + Active Problems Problem Noted Date Diagnosed Date [...] on CPAP Coronary artery disease invo lving [place] coronary artery of [place] heart without angina pectoris 08/01/2015 Overview (08/09/2016): Coronary artery disease involving [place] coronary artery of [place] heart without angina pectoris Chronic anticoagulation 08/01/2015 Overview (08/09/2016): Chronic anticoagulation Presence of cardiac pacemaker 08/01/2015 Overview (11/03/2023): Medtronic [place] Dual Pacemaker Dx; SSS, PAF. Gen change 07/16/2021-Uppstrom, chronic leads 11/01/2010 Carelink remote home monitoring Q3 months, Office pacer checks Q1 year. [facility] [place] Morbid obesity 08/01/2015 Overview (08/09/2016): Morbid obesity with BMI of 45.0-49.9, adult Paroxysmal atrial fibrillation (CMS/HCC) 016 Overview (08/09/2016): Paroxysmal atrial fibrillation CHF (congestive heart failure) 08/01/2015 Overview (08/09/2016): Hypertensive heart disease with diastolic heart failure A-fib 09/18/2013 Overview (08/07/2016): ATRIAL FIBRILLATION Arteriosclerotic vascular disease 09/18/2013 Overview (08/09/2016): ASCVD Palpitations 11/13/2011 Hypothyroidism 11/13/2011 Atherosclerosis of coronary artery 11/13/2011 Malignant neoplasm of urinary bladder 11/13/2011 Thromboembolic disorder 11/13/2011 HTN (hypertension) 11/13/2011 Malignant neoplastic disease 11/07/2011 Ovarian retention cyst 11/07/2011 Current Treatment and Therapy Plans No current plan information found. Past Treatment and Therapy Plans No past plan information found. Lifetime Dose Tracking * Chemical Lifetime Dose Automatic Entry Manual Entr y Air kerma at the reference point (Ka,r) 982 mGy 0 mGy 982 mGy Resolved Problems Problem Noted Date Diagnosed Date Resolved Date SOFI on CPAP 10/25/2022 12/03/2022 Dyslipidemia 02/06/2021 05/08/2022
--- OUTSIDE RECORDS SUMMARY | 2024-09-02 15:32 | XMS_ITS | Continuity of Care Document ---
Author Organization [facility] Address [address] [place] [address] [place] [address] Phone Care Team Providers Care Director Of Sports Medicine Name Role Phone Bonny Camarillo MD Unavailable Unavailable Advance Directives Directive Yes / No Effective Date File Name No Information Encounters Encounter Description Practice Location Reason(s) For Visit Diagnoses Date Provider Providers Copied on Encounter [facility], [address] [place] [address] [address], [place], [place], [id number], [place] tel:[phone] [facility] [place] [facility] Professional No Information [address] [facility], [place], [address], [place]. tel:[phone] Family History Family Member Type Diagnosis Age At Onset No Information Payers Payer name Insurance type Covered libertarian ID Authoriza tion(s) Medicaid [facility] [id number] Social History Type Description Quantity Date Captured Comments Sex Female Smoking Status No Information Chief Complaint And Reason For Visit No Information Reason For Referral Reason For Referral No Information History Of Present Illness Encounter Date Complaint History Of Prese nt Illness No Information Functional Status Date Functional Assessmen t No Information Instructions Date Instruction Additional Infor mation No Information Assessments Type Assessment Date No Information Patient Care Teams Name Effective Dates (start - stop) Status Members No Information
--- OUTSIDE RECORDS SUMMARY | 2024-09-02 15:32 | XMS_ITS | Encounter Summary ---
Author Organization [facility] Address [address] [facility] [address] [place] [address] Care Team Providers Care Pharmacy Sales Representative Name Role Phone Dilan Metzger MD Primary Care Provider + Encounter Details Date Type Department Care Team (Late st Contact Info) Description 08/22/2016 Orders Only [facility] ProviderSydnee MD [address] [place] [address] Social History Tobacco Use Types Packs/Day Years Used Date Smoking Tobacco: Former Cigarettes Q uit: 05/05/1996 Alcohol Use Standard Drinks/Week Comments Yes 0 (1 standard drink = 0.6 oz pur e alcohol) Comments Unknown Sex and Gender Information Value Date Recorded Sex Assigned at Not on file 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 Historical Provider [facility] Final Result documented in this encounter Visit Diagnoses Not on filedocumented in this encounter Care Teams Pharmacy Sales Representative Relationship Specialty Start Date End Date Dilan Metzger MD PCP - General 04/13/09 documented as of this encounter
--- OUTSIDE RECORDS SUMMARY | 2024-09-02 15:32 | XMS_ITS | Referral Summary ---
[facility] Organization [facility] Address [address] [place] [address] Care Team Providers Care Set Making Machine Operator Name Role Phone Dilan Metzger MD Primary [...] on CPAP Coronary artery disease invo lving [place] coronary artery of [place] heart without angina pectoris 08/01/2015 Overview (08/09/2016): Coronary artery disease involving [place] coronary artery of [place] heart without angina pectoris Chronic anticoagulation 08/01/2015 Overview (08/09/2016): Chronic anticoagulation Presence of cardiac pacemaker 08/01/2015 Overview (11/03/2023): Medtronic [place] Dual Pacemaker Dx; SSS, PAF. Gen change 07/16/2021-Uppstrom, chronic leads 11/01/2010 Carelink remote home monitoring Q3 months, Office pacer checks Q1 year. Patient transferred device management to [facility] [place] Morbid obesity 08/01/2015 Overview (08/09/2016): Morbid obesity with BMI of 45.0-49.9, adult Paroxysmal atrial fibrillation ([facility]) 016 Overview (08/09/2016): Paroxysmal atrial fibrillation CHF [...] on CPAP 10/25/2022 12/03/2022 Dyslipidemia 02/06/2021 05/08/2022 Social History Tobacco Use Types Packs/Day Years [...] 10/28/2022 How often do you attend chur or jewish services? Never 10/28/2022 Do you belong to any clubs o r organizations such as hindu groups, unions, fraternal or athletic groups, or [...] place to sleep or slept in a mcc (including now)? No 10/28/2022 Personal Safety Answer Date Recorded Have you ever been in or are you currently in a harmful physical or emotional relationship or is someone making you feel afraid or unsafe? 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 Gender Identity Not on file Sexual Orientation [...] 12/03/2022 2:01 PM CDT Plan of Treatment Not on file Medical Devices Implanted Type Area Tire Regrooving Machine Operator Device Identifier Shelf Expiration Date Model / Serial / Lot Pacemaker-2010 Implanted:11/01 (Quantity not on file) Pacemaker Chest Medtronic SSS, PAF REVO MRI / [id number] / Insurance [facility] [place] [facility] MEDICARE ADVANTAGE Advance Directives For more information, please contact: [phone] * Full Code (Latest Code Status on File) Date Activated Date Inactivated Comments 10/25/2022 6:14 PM 10/29/2022 6:33 PM Care Teams Set Making Machine Operator Relationship Specialty Start Date End Date Dilan Metzger MD PCP - General 04/13/09
--- OUTSIDE RECORDS SUMMARY | 2024-09-02 15:32 | XMS_ITS | Encounter Summary ---
Author Organization [facility] Address [facility] [place] [address] Care Team Providers Care Advertising Columnist Name Role Phone Dilan Metzger MD Primary Care Provider [phone] Encounter Details Date Type Department Care Team ([facility] Contact Info) Description 03/09/2018 Abstract [facility] [address] [place] [id number] Dilan Metzger MD [address] [place] [address] [phone] Social History Tobacco Use Types Packs/Day Years Used Date Smoking Tobacco: Never Assessed Comments Unknown Sex and Gender Information Value Date Recorded Sex Assigned at Not on file Legal Sex Female 7:50 PM CDT Gender Identity Not on file Sexual Orientation Not on file documented as of this encounter Plan of Treatment Upcoming Encounters Date Type Department Care Team ([facility] Contact Info) Description 09/28/2024 1:20 PM CDT Office Visit [facility] [address] [place] [address] Dilan Metzger MD [address] [place] [address] [address] [place], [place] [id number] documented as of this encounter Visit Diagnoses Not on filedocumented in this encounter Additional Health Concerns Infection Onset Date Last Indicated Resolved Time COVID-19 Rule Out 02/18/2020 02/18/2020 02/20/2020 9:00 AM CDT documented as of this encounter Care Teams Advertising Columnist Relationship Specialty [place] [address] [place] [address] PCP - General FAMILY PRACTICE 02/18/18 documented as of this encounter
--- OUTSIDE RECORDS SUMMARY | 2024-09-02 15:32 | XMS_ITS | Data Portability ---
Author Organization [facility], Main Office Address [address] [place] [address] Assessment Encounter Date Assessment Date Assessment LastModified by Organization Details LastModified Time 07/15/2022 07/15/2022 Assessment: Bilateral pulmonary nodules Nicotine smoke: 1 ppd [id number] = 30 pack years Mild COPD SOFI Pulm hypertension Plan: The following were reviewed and explained to the patient: Chest CT 04/10/17 cardiomegaly, kyphosis, bilateral pulmonary nodules Chest CT 04/06/21 no PE, (+) CHF, pulm HTN, bilateral pulmonary nodules Lab data 06/06/22 multiple environmental allergies PFT 06/17/22 FEV1 1.69 L (82%) 2-D echocardiogram from Dr. Josue 06/20/22 EF 55%, mild LVH, mod LAE, mild SIMIN We will try to obtain old sleep study from [facility] or [facility] at [facility], . Differential diagnoses for pulmonary nodule: 1. malignant tumor 2. benign tumor 3. inflammatory processes 4. infectious process (viral, atypical bacterial, fungal, atypical mycobacterial) The Fleischner Society pulmonary nodule recommendations below pertain to the follow-up and management of indeterminate pulmonary nodules detected incidentally on CT and are published by the Fleischner Society. The guideline does not apply to lung cancer screening, patients younger than 35 years, or patients with a history of primary cancer or immunosuppression. These recommendations reflect the 2017 revision 4, which supersedes prior versions published in 2005 and 2013. Multiple solid nodules <6 mm (<100 mm3) *low-risk patients: no routine follow-up required *high-risk patients: optional CT at 12 months Multiple solid nodules >6 mm (>100 mm3) *low-risk patients: CT at 3-6 months, then consider CT at 18-24 months *high-risk patients: CT at 3-6 months, then CT at 18-24 months Chest [address]and PFT one week before return. General information on COPD was covered. Educational video was shown. The video explained what COPD is and how it affects breathing. Self-care skills such as not smoking, using medications as prescribed, oxygen therapy, and knowing when to contact the healthcare provider are covered. Diaphragmatic breathing and pursed lip breathing are explained and demonstrated. Positive lifestyle changes are introduced. Following these self-care skills will help in the management of COPD so the patient can stay out of the hospital. Advised to continue not to smoke. Discontinue albuterol nebs. Continue Albuterol HFA as needed. Continue Anoro Ellipta 62.5/25 mcg 1 inhalation daily. The patient does not know how to accurately administer the inhalers. Today, the patient was shown how to take these medications. The proper technique for delivering these medications was instructed. The patient expressed a clear understanding and demonstrated back how to use these medications. Without the proper technique, the patient will not reap the benefits of these medications as the contents will not reach the lower airways as intended to be. Without the proper technique, the patient will not reap the benefits of the treatment as the contents of the inhaler will not reach the lower airways as intended to be. Adherence to therapy is advocated. Nonadherence may lead to treatment failure, further progression of the condition, and other complications. Hospitals admissions are often the result of individuals not taking prescription medications accurately. Alternatively, greater adherence to medication regimens have shown to lower rates of hospitalization and decrease total medical costs in patients with chronic medical conditions. Advocated influenza vaccination annually and pneumonia vaccination STONE. Advocated weight loss through diet and exercise. Patient's ideal body weight according to height and gender is up to 125 lbs. Encouraged patient to adjust caloric intake to maintain/achieve ideal body weight, emphasizing on fruits, vegetables, whole grains, and fat-free or low-fat products. These include lean meats, poultry, fish, beans, eggs, and nuts and foods that are low in saturated fats, trans-fats, cholesterol, salt (sodium), and glycemic index. Stressed the importance of regular exercise up to the patient's capacity limits. In this case, we recommend regular (4 x a week or more) walking or other light activity. Patient to monitor BP daily and bring records to PCP for further management. Follow-up: 1 year, July 2023 [facility] Not available 07/15/2022 17:28:31 07/16/2023 07/16/2023 Assessment: Bilateral pulmonary nodules Nicotine smoke: 1 ppd [id number] = 30 pack years Mild COPD SOFI Pulm hypertension Plan: The following were reviewed and explained to the patient: Chest CT 04/10/17 cardiomegaly, kyphosis, bilateral pulmonary nodules Chest CT 04/06/21 no PE, (+) CHF, pulm HTN, bilateral pulmonary nodules Chest CT 06/23/23 2 mm LLL/RUL/RLL nodules Lab data 06/06/22 multiple environmental allergies PFT 06/17/22 FEV1 1.69 L (82%) 2-D echocardiogram from Dr. Josue 06/20/22 EF 55%, mild LVH, mod LAE, mild SIMIN We will try to obtain old sleep study from [facility] or [facility] Sleep [facility] at [facility], . Differential diagnoses for pulmonary nodule: 1. malignant tumor 2. benign tumor 3. inflammatory processes 4. infectious process (viral, atypical bacterial, fungal, atypical mycobacterial) The Fleischner Society pulmonary nodule recommendations below pertain to the follow-up and management of indeterminate pulmonary nodules detected incidentally on CT and are published by the Fleischner Society. The guideline does not apply to lung cancer screening, patients younger than 35 years, or patients with a history of primary cancer or immunosuppression. These recommendations reflect the 2017 revision 4, which supersedes prior versions published in 2005 and 2013. Multiple solid nodules <6 mm (<100 mm3) *low-risk patients: no routine follow-up required *high-risk patients: optional CT at 12 months Multiple solid nodules >6 mm (>100 mm3) *low-risk patients: CT at 3-6 months, then consider CT at 18-24 months *high-risk patients: CT at 3-6 months, then CT at 18-[address] and PFT one week before return. General information on COPD was covered. The video explained what COPD is and how it affects breathing. Self-care skills such as not smoking, using medications as prescribed, oxygen therapy, and knowing when to contact the healthcare provider are covered. Diaphragmatic breathing and pursed lip breathing are explained and demonstrated. Positive lifestyle changes are introduced. Following these self-care skills will help in the management of COPD so the patient can stay out of the hospital. Advised to continue not to smoke. Discontinue albuterol nebs. Continue Albuterol HFA as needed. Continue Anoro Ellipta 62.5/25 mcg 1 inhalation daily. The patient does not know how to accurately administer the inhalers. Today, the patient was shown how to take these medications. The proper technique for delivering these medications was instructed. The patient expressed a clear understanding and demonstrated back how to use these medications. Without the proper technique, the patient will not reap the benefits of these medications as the contents will not reach the lower airways as intended to be. Without the proper technique, the patient will not reap the benefits of the treatment as the contents of the inhaler will not reach the lower airways as intended to be. Adherence to therapy is advocated. Nonadherence may lead to treatment failure, further progression of the condition, and other complications. Hospitals admissions are often the result of individuals not taking prescription medications accurately. Alternatively, greater adherence to medication regimens have shown to lower rates of hospitalization and decrease total medical costs in patients with chronic medical conditions. Advocated influenza vaccination annually and pneumonia vaccination STONE. Advocated weight loss through diet and exercise. Patient's ideal body weight according to height and gender is up to 125 lbs. Encouraged patient to adjust caloric intake to maintain/achieve ideal body weight, emphasizing on fruits, vegetables, whole grains, and fat-free or low-fat products. These include lean meats, poultry, fish, beans, eggs, and nuts and foods that are low in saturated fats, trans-fats, cholesterol, salt (sodium), and glycemic index. Stressed the importance of regular exercise up to the patient's capacity limits. In this case, we recommend regular (4 x a week or more) walking or other light activity. Patient to monitor BP daily and bring records to PCP for further management. Follow-up: 1 year, July 2023 Not available 07/16/2023 16:55:25 07/14/2024 07/14/2024 Assessment: Rhinitis Bilateral pulmonary nodules Nicotine smoke: 1 ppd [id number] = 30 pack years Mild COPD SOFI Pulm hypertension Plan: The following were reviewed and explained to the patient: Chest CT 04/10/17 cardiomegaly, kyphosis, bilateral pulmonary nodules Chest CT 04/06/21 no PE, (+) CHF, pulm HTN, bilateral pulmonary nodules Chest CT 06/23/23 2 mm LLL/RUL/RLL nodules Lab data 06/06/22 multiple environmental allergies PFT 06/17/22 FEV1 1.69 L (82%) 2-D echocardiogram from Dr. Josue 06/20/22 EF 55%, mild LVH, mod LAE, mild SIMIN We will try to obtain old sleep study from [facility] or [facility] at [facility], . PAP compliance downloaded and interpreted x 20 minutes. Data reviewed and explained to the patient. Average apnea/hypopnea index (AHI) is 0.8. Patient used PAP > 4 hours 99% of the time. PAP is set at 15 cmH2O. PAP will remain at 15 cmH2O. Oxygen supplementation: none Keep ramp start at 5 cmH2O. Keep ramp duration at 5 minutes. Keep EPR +3 time stamp assembler. Keep humidifier level at 3. Patient is benefiting from PAP therapy. Encouraged patient to maintain PAP use more than 70% of the time. Statement of PAP use and benefits will be sent to the home care store. Educated the patient on problems and solutions associated with positive airway pressure (PAP) use. Difficulty tolerating pressure, mask leaks, intolerance of interface, nasal congestion, claustrophobic response, dry mouth, and unintentional mask removal during sleep were covered. Patient experiences nasal congestion. Patient will use nasal saline spray before starting PAP, use heated PAP humidifier, clean/air dry humidifier reservoir daily, use nasal steroid spray, use ipratropium bromide nasal spray if rhinitis/rhinorrhe a is present or obtain an oronasal/oral interface. Dry mouth is a normal occurrence for people who just start out on PAP therapy because they are not used to air blowing in to the throat to hold open. Dry mouth is exacerbated for people who wear nasal PAP mask and whose jaw drops open during sleep. Not only does this create a much less efficient therapy because of leakage, it also causes dry mouth. There are a couple solutions to help prevent this type of problem. A simple solution would be to wear a chinstrap which essentially holds the jaw in place. A second solution would be a switch to a full face mask which covers both the nose and mouth. Although this is another easy solution, using a full face mask for some could seem claustrophobic or confining. There is no silver bullet solution as no single mask is right for everybody. Sometimes it takes a bit of experimentation to find a PAP mask which best meets the patient's needs as well as fits comfortably. Another tactic is to use a humidifier on your PAP machine. Most new PAP machines have integrated humidifiers. Humidification is hallman when dealing with symptoms of dry mouth because the humidifier can supply both warm and room temperate air. Even a small amount of humidity in the airflow will help nasal passages to stay hydrated. If a person is using both a full face mask and a PAP machine with a heated humidifier and is still experiencing dry mouth, an ill-fitted PAP mask might be causing the problem. Leakage can be caused by a mask that is to large or small, the wrong style mask, the cushion is degraded or simply because the mask's straps aren't adjusted correctly. If leakage occurs, dry air from the room can leak in while humidification escapes. The result is reduced humidification within the circuit and resulting in dry throat and mouth. Finally, beyond factors involving the PAP machine and mask, dry mouth can also be caused or worsened by dehydration. The general recommendation to during eight 8 oz. glasses of water a day might be too little for many people. When people drink large amounts of coffee or other caffeine beverages, or sweat a lot during the day, making sure to rehydrate is an important part of PAP therapy. Provided the patient with a list of local home care stores where positive airway pressure (PAP) units, accoutrement, and services are available. Home care store selection is based on patient's insurance carrier. Patient will setup an appointment with [facility] for supplies and pressure adjustments. A major predictor of success with use of PAP is follow-up with both the respiratory supplier and the treating physician. The download results can show the treating physician information about adherence to treatment, residual AHI while on treatment and presence of large mask leakage. This information is especially helpful if the patient has residual sleepiness despite treatment. General information on sleep disordered breathing, evaluation of sleep disordered breathing, treatment with PAP therapy, and living with PAP therapy were covered. We discussed with the patient the impact of weight on: Sleep disordered breathing Prediabetes Hyperlipidemia CAD Hypertension We discussed with the patient the benefit of PAP therapy on: Sleep disordered breathing Depression Rhinitis Prediabetes ME Hypertension Mild SIMIN RVSP 42 mmHg Educated the patient on sleep hygiene measures. Relaxing rituals to rest easy, understanding foods with positive and negative impact on sleep, creating a peaceful sleep environment, timing of exercise, using herbal sleep aids, and practicing sleep-friendly meditation were covered. To determine how much sleep is needed, the patient will assess where (s)he falls on the spectrum, examine what lifestyle factor such as stress is affecting the quality and quantity of sleep. In general, adults need 7-9 hours of sleep. Educated the patient regarding foods that promote sleep. These include but are not limited to cherries, bananas, toast, oatmeal, and warm milk. Educated the patient regarding foods and drinks to avoid before bedtime. These include but are not limited to aged cheese, chocolate, spicy foods, tomato-based sauces, soy, ginseng tea and processed meat. Differential diagnoses for pulmonary nodule: 1. malignant tumor 2. benign tumor 3. inflammatory processes 4. infectious process (viral, atypical bacterial, fungal, atypical mycobacterial) The Fleischner Society pulmonary nodule recommendations below pertain to the follow-up and management of indeterminate pulmonary nodules detected incidentally on CT and are published by the Fleischner Society. The guideline does not apply to lung cancer screening, patients younger than 35 years, or patients with a history of primary cancer or immunosuppression. These recommendations reflect the 2017 revision 4, which supersedes prior versions published in 2005 and 2013. Multiple solid nodules <6 mm (<100 mm3) *low-risk patients: no routine follow-up required *high-risk patients: optional CT at 12 months Multiple solid nodules >6 mm (>100 mm3) *low-risk patients: CT at 3-6 months, then consider CT at 18-24 months *high-risk patients: CT at 3-6 months, then CT at 18-[address] and PFT STONE. General information on COPD was covered. COPD affects breathing. Self-care skills such as not smoking, using medications as prescribed, oxygen therapy, and knowing when to contact the healthcare provider are covered. Diaphragmatic breathing and pursed lip breathing are explained and demonstrated. Positive lifestyle changes are introduced. Following these self-care skills will help in the management of COPD so the patient can stay out of the hospital. Advised to continue not to smoke. Discontinue albuterol nebs. Continue Albuterol HFA as needed. Continue Anoro Ellipta 62.5/25 mcg 1 inhalation daily. The patient does not know how to accurately administer the inhalers. Today, the patient was shown how to take these medications. The proper technique for delivering these medications was instructed. The patient expressed a clear understanding and demonstrated back how to use these medications. Without the proper technique, the patient will not reap the benefits of these medications as the contents will not reach the lower airways as intended to be. Without the proper technique, the patient will not reap the benefits of the treatment as the contents of the inhaler will not reach the lower airways as intended to be. Adherence to therapy is advocated. Nonadherence may lead to treatment failure, further progression of the condition, and other complications. Hospitals admissions are often the result of individuals not taking prescription medications accurately. Alternatively, greater adherence to medication regimens have shown to lower rates of hospitalization and decrease total medical costs in patients with chronic medical conditions. Advocated influenza vaccination annually and pneumonia vaccination STONE. Advocated weight loss through diet and exercise. Patient's ideal body weight according to height and gender is up to 125 lbs. Encouraged patient to adjust caloric intake to maintain/achieve ideal body weight, emphasizing on fruits, vegetables, whole grains, and fat-free or low-fat products. These include lean meats, poultry, fish, beans, eggs, and nuts and foods that are low in saturated fats, trans-fats, cholesterol, salt (sodium), and glycemic index. Stressed the importance of regular exercise up to the patient's capacity limits. In this case, we recommend regular (4 x a week or more) walking or other light activity. Patient to monitor BP daily and bring records to PCP for further management. Follow-up: [address] Not available 07/14/2024 15:19:21 08/30/2024 08/30/2024 Assessment: Rhinitis Bilateral pulmonary nodules Nicotine smoke: 1 ppd [id number] = 30 pack years Mild COPD SOFI Pulm hypertension Plan: The following were reviewed and explained to the patient: Chest CT 04/10/17 cardiomegaly, kyphosis, bilateral pulmonary nodules Chest CT 04/06/21 no PE, (+) CHF, pulm HTN, bilateral pulmonary nodules Chest CT 06/23/23 2 mm LLL/RUL/RLL nodules Lab data 06/06/22 multiple environmental allergies PFT 06/17/22 FEV1 1.69 L (82%) 2-D echocardiogram from Dr. Josue 06/20/22 EF 55%, mild LVH, mod LAE, mild SIMIN We will try to obtain old sleep study from [facility] or [facility] at [facility], . PAP compliance downloaded and interpreted x 20 minutes. Data reviewed and explained to the patient. Average apnea/hypopnea index (AHI) is 0.6. Patient used PAP > 4 hours 95% of the time. PAP is set at 15 cmH2O. PAP will remain at 15 cmH2O. Oxygen supplementation: none Keep ramp start at 5 cmH2O. Keep ramp duration at 5 minutes. Keep EPR +3 time stamp assembler. Keep humidifier level at 3. Patient is benefiting from PAP therapy. Encouraged patient to maintain PAP use more than 70% of the time. Statement of PAP use and benefits will be sent to the home care store. Educated the patient on problems and solutions associated with positive airway pressure (PAP) use. Difficulty tolerating pressure, mask leaks, intolerance of interface, nasal congestion, claustrophobic response, dry mouth, and unintentional mask removal during sleep were covered. Patient experiences nasal congestion. Patient will use nasal saline spray before starting PAP, use heated PAP humidifier, clean/air dry humidifier reservoir daily, use nasal steroid spray, use ipratropium bromide nasal spray if rhinitis/rhinorrhe a is present or obtain an oronasal/oral interface. Dry mouth is a normal occurrence for people who just start out on PAP therapy because they are not used to air blowing in to the throat to hold open. Dry mouth is exacerbated for people who wear nasal PAP mask and whose jaw drops open during sleep. Not only does this create a much less efficient therapy because of leakage, it also causes dry mouth. There are a couple solutions to help prevent this type of problem. A simple solution would be to wear a chinstrap which essentially holds the jaw in place. A second solution would be a switch to a full face mask which covers both the nose and mouth. Although this is another easy solution, using a full face mask for some could seem claustrophobic or confining. There is no silver bullet solution as no single mask is right for everybody. Sometimes it takes a bit of experimentation to find a PAP mask which best meets the patient's needs as well as fits comfortably. Another tactic is to use a humidifier on your PAP machine. Most new PAP machines have integrated humidifiers. Humidification is hallman when dealing with symptoms of dry mouth because the humidifier can supply both warm and room temperate air. Even a small amount of humidity in the airflow will help nasal passages to stay hydrated. If a person is using both a full face mask and a PAP machine with a heated humidifier and is still experiencing dry mouth, an ill-fitted PAP mask might be causing the problem. Leakage can be caused by a mask that is to large or small, the wrong style mask, the cushion is degraded or simply because the mask's straps aren't adjusted correctly. If leakage occurs, dry air from the room can leak in while humidification escapes. The result is reduced humidification within the circuit and resulting in dry throat and mouth. Finally, beyond factors involving the PAP machine and mask, dry mouth can also be caused or worsened by dehydration. The general recommendation to during eight 8 oz. glasses of water a day might be too little for many people. When people drink large amounts of coffee or other caffeine beverages, or sweat a lot during the day, making sure to rehydrate is an important part of PAP therapy. Provided the patient with a list of local home care stores where positive airway pressure (PAP) units, accoutrement, and services are available. Home care store selection is based on patient's insurance carrier. Patient will setup an appointment with [facility] for supplies and pressure adjustments. A major predictor of success with use of PAP is follow-up with both the respiratory supplier and the treating physician. The download results can show the treating physician information about adherence to treatment, residual AHI while on treatment and presence of large mask leakage. This information is especially helpful if the patient has residual sleepiness despite treatment. General information on sleep disordered breathing, evaluation of sleep disordered breathing, treatment with PAP therapy, and living with PAP therapy were covered. We discussed with the patient the impact of weight on: Sleep disordered breathing Prediabetes Hyperlipidemia CAD Hypertension We discussed with the patient the benefit of PAP therapy on: Sleep disordered breathing Depression Rhinitis Prediabetes ME Hypertension Mild SIMIN RVSP 42 mmHg Educated the patient on sleep hygiene measures. Relaxing rituals to rest easy, understanding foods with positive and negative impact on sleep, creating a peaceful sleep environment, timing of exercise, using herbal sleep aids, and practicing sleep-friendly meditation were covered. To determine how much sleep is needed, the patient will assess where (s)he falls on the spectrum, examine what lifestyle factor such as stress is affecting the quality and quantity of sleep. In general, adults need 7-9 hours of sleep. Educated the patient regarding foods that promote sleep. These include but are not limited to cherries, bananas, toast, oatmeal, and warm milk. Educated the patient regarding foods and drinks to avoid before bedtime. These include but are not limited to aged cheese, chocolate, spicy foods, tomato-based sauces, soy, ginseng tea and processed meat. Six minute walk study carried out. Patient covered 865 feet at a moderate pace in 6 minutes. Patient tolerated walk well without stops. Pulse oximeter reading dropped from 93% to 86% with exercise Oxygen supplementation is needed at 2 L/min to keep saturation at 89% or higher during exertion. Oxygen prescription is sent to the home care store of patient's choice. Differential diagnoses for pulmonary nodule: 1. malignant tumor 2. benign tumor 3. inflammatory processes 4. infectious process (viral, atypical bacterial, fungal, atypical mycobacterial) The Fleischner Society pulmonary nodule recommendations below pertain to the follow-up and management of indeterminate pulmonary nodules detected incidentally on CT and are published by the Fleischner Society. The guideline does not apply to lung cancer screening, patients younger than 35 years, or patients with a history of primary cancer or immunosuppression. These recommendations reflect the 2017 revision 4, which supersedes prior versions published in 2005 and 2013. Multiple solid nodules <6 mm (<100 mm3) *low-risk patients: no routine follow-up required *high-risk patients: optional CT at 12 months Multiple solid nodules >6 mm (>100 mm3) *low-risk patients: CT at 3-6 months, then consider CT at 18-24 months *high-risk patients: CT at 3-6 months, then CT at 18-[address] STNOE. General information on COPD was covered. COPD affects breathing. Self-care skills such as not smoking, using medications as prescribed, oxygen therapy, and knowing when to contact the healthcare provider are covered. Diaphragmatic breathing and pursed lip breathing are explained and demonstrated. Positive lifestyle changes are introduced. Following these self-care skills will help in the management of COPD so the patient can stay out of the hospital. Advised to continue not to smoke. Continue Albuterol HFA as needed. Continue Anoro Ellipta 62.5/25 mcg 1 inhalation daily. The patient does not know how to accurately administer the inhalers. Today, the patient was shown how to take these medications. The proper technique for delivering these medications was instructed. The patient expressed a clear understanding and demonstrated back how to use these medications. Without the proper technique, the patient will not reap the benefits of these medications as the contents will not reach the lower airways as intended to be. Without the proper technique, the patient will not reap the benefits of the treatment as the contents of the inhaler will not reach the lower airways as intended to be. Adherence to therapy is advocated. Nonadherence may lead to treatment failure, further progression of the condition, and other complications. Hospitals admissions are often the result of individuals not taking prescription medications accurately. Alternatively, greater adherence to medication regimens have shown to lower rates of hospitalization and decrease total medical costs in patients with chronic medical conditions. Advocated influenza vaccination annually and pneumonia vaccination STONE. Advocated weight loss through diet and exercise. Patient's ideal body weight according to height and gender is up to 125 lbs. Encouraged patient to adjust caloric intake to maintain/achieve ideal body weight, emphasizing on fruits, vegetables, whole grains, and fat-free or low-fat products. These include lean meats, poultry, fish, beans, eggs, and nuts and foods that are low in saturated fats, trans-fats, cholesterol, salt (sodium), and glycemic index. Stressed the importance of regular exercise up to the patient's capacity limits. In this case, we recommend regular (4 x a week or more) walking or other light activity. Patient to monitor BP daily and bring records to PCP for further management. Follow-up: [address] [facility]5 Not available 08/30/2024 16:05:04 Plan of Treatment Reminders Order Date Submit Date Provider Last Modified By Organization Details Last Modified Time Details Appointments None recorded. Lab None recorded. Referral None recorded. Procedures None recorded. Surgeries None recorded. Imaging CT, chest, w/o contrast - Please call patient to schedule. 2024 025 RAMIREZ [facility], [address] [place] [address] , [place] [address], [place], [address], 12:37:27 CT, chest, w/o contrast 2024 025 [email or web address] Not available 5 16:53:29 CT, chest, w/o contrast 2023 025 [facility] ([facility]), [address] [place], [address], 5 18:11:40 CT, chest, w/o contrast 2022 [facility]24 [email or web address] [address] [place], [address], 4 11:30:21 Medication Orders albuterol sulfate HFA 90 mcg/actuat ion aerosol inhaler 2024 025 [facility] #[id number], [address], [place], [address], 5 15:55:31 Anoro Ellipta 62.5 mcg-25 mcg/actuat ion powder for inhalation 2024 025 [facility] #[id number], [address], [place], [address], 5 15:55:31 albuterol sulfate HFA 90 mcg/actuat ion aerosol inhaler 2024 025 [facility]acy #[id number], [address], [place], [address], 5 15:22:26 Anoro Ellipta 62.5 mcg-25 mcg/actuat ion powder for inhalation 2024 025 [facility] #[id number], [address], [place], [address], 5 15:22:26 albuterol sulfate HFA 90 mcg/actuat ion aerosol inhaler 2023 024 [facility] #[id number], [address], [place], [address], 4 16:43:41 Anoro Ellipta 62.5 mcg-25 mcg/actuat ion powder for inhalation 2023 024 [id number], [address], [place], [address], 4 16:43:41 albuterol sulfate HFA 90 mcg/actuat ion aerosol inhaler 2022 023 [facility] #[id number], [address], [place], [address], 3 17:29:11 Anoro Ellipta 62.5 mcg-25 mcg/actuat ion powder for inhalation 2022 023 [id number], [address], [place], [address], 3 17:29:11 Patient TargetsNo targets recorded. Patient Instructions Encounter Date Encounter Id Patient Instructions Last Modified By Organization Details Last Modified Time 07/15/2022 [id number] complete PFT w/ post bronchodilator spirometry* Not available 06/18/2023 11:30:31 07/16/2023 [id number] complete PFT w/ post bronchodilator spirometry* Not available 07/01/2024 18:11:27 Reason for Referral None Reported. Results Created Date Observation Date Name Description Value Unit Range Abnormal Flag Note LastModifiedBy Organization Detail LastModifiedTime 06/06/1904/06/2021 CT, angio gram, chest , w/ contr ast No observ ation record ed. [id number] Not Available 07/04/2022 01:49:05 06/19/1906/17/2022 PFT, compl ete No observ ation record ed. [id number] [facility] ([facility]) [address], [place], [address], 07/04/2022 01:49:05 06/28/19 23 04/10/2017 CT, chest , w/o contr ast No observ ation record ed. [id number] Not Available 07/04/2022 01:49:05 07/16/1906/20/2022 US, echoc ardio gram, trans thora cic, compl ete, w/ color flow No observ ation record ed. BARCODE Not Available 2022 18:44:34 06/23/19 24 06/23/2023 CT, chest , w/o contr ast No observ ation record ed. [email or web address] [facility] [address] [place], [address], 06/23/2023 16:42:57 09/02/1908/30/2024 6 minut e walk test* No observ ation record ed. BARCODE Not Available 2024 17:03:09 Result Notes None recorded. Problems Name Problem SNOMED Code Status Onset Date Resolution Date Notes Provider Name and Address Organization Details Recorded Time Mild chronic obstructive pulmonary disease 215679917 Active 2022 Not Available [facility] 4 11:31:44 Obstructive sleep apnea syndrome 58204360 Active 2022 Not Available [facility] 4 11:31:44 Multiple nodules of lung 642826894 Active 2022 Not Available [facility] 4 11:31:44 Notes:Medical History: Depre ssion Left tinnitus COVID infection 04/2021 Rhinitis with postnasal drip to multiple environmental allergens IgE 342 IU/mL Eosinophils 0/uL AAT PiMM 180 mg% Mild COPD Delayed sleep phase syndrome Obesity with SOFI on CPAP + 4 Lpm O2 c/o [employer] Prediabetes Hypothyroidism Hyperlipidemia CAD s/p inferolateral ME Hypertension with mild LVH EF 55% Moderate LAE Mild SIMIN RVSP 42 mmHg Procedure History: T&A 1964 Cholecystectomy 1977 6 coronary artery stents 2006 Pacemaker placement 2007 DAVID-BSO 2016 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 Procedures Surgical History Date Name Laterality Status Provider Name and Address Organization Details Recorded Time cholecystectomy completed Not Available [facility] 07/04/2022 01:47:28 partial hysterectomy completed Not Available [facility] 07/04/2022 01:47:28 tonsillectomy completed Not Available [facility] 07/04/2022 01:47:28 Imaging Results Imaging Date Name Status LastModified by [facility] Details LastModified Time 04/06/2021 CT, angiogram, chest, w/ contrast completed [id number] Information not available 07/04/2022 01:49:05 04/10/2017 CT, chest, w/o contrast completed [id number] Information not available 07/04/2022 01:49:05 06/17/2022 PFT, complete completed [id number] [facility] ([facility]) [address] [place], [address], 07/04/2022 01:49:05 06/20/2022 US, echocardiogra m, transthoracic , complete, w/ color flow completed BARCODE Information not available 07/15/2022 18:44:34 06/23/2023 CT, chest, w/o contrast completed [email or web address] [facility] [address] [place], [address], 06/23/2023 16:42:57 08/30/2024 6 minute walk test* completed BARCODE Information not available 09/01/2024 17:03:09 Procedure Notes None recorded. Medical Equipment None Reported. Allergies Allergen ID Allergen Name Allergen Category Reaction Reaction Severity Criticality Documentation Date Start Date Code Code System Note Provider Name and Address Organization Details Recorded Time 74601 adhesive tape environme nt,medica tion rash Not available Not available 07/04/2022 72152 UNK Not Available [facility] 01:49:01 Medications Name Sig Start Date Stop Date Status Note LastModified by Organization Details LastModified Time losartan 50 mg tablet TAKE 1 TABLET BY MOUTH EVERY DAY active Not Available Not Available No t Available cyclobenzap rine 10 mg tablet TAKE 1 TABLET BY MOUTH EVERY 8 HOURS NEEDED 07/15 completed Not Available Not Available Not Available amoxicillin 500 mg capsule TAKE 1 CAPSULE BY MOUTH THREE TIMES A DAY UNTIL GONE 07/14 completed Not Available Not Available Not Available bumetanide 2 mg tablet TAKE 1.5 TABLETS (3 MG) BY MOUTH DAILY. active Not Available Not Available No t Available triazolam 0.25 mg tablet TAKE 1/2 TABLET BY MOUTH 1 HOUR PRIOR TO APPOINTME NT. BRING 2ND DOSE WITH YOU. MUST HAVE FREELANCE COURT REPORTER 08/30 completed Not Available Not Available Not Available trazodone 50 mg tablet TAKE 1 TABLET BY MOUTH AT BEDTIME, MAY INCREASE TO 2 TABLETS AT BEDTIME IF NEEDED. 07/14 completed Not Available Not Available Not Available azithromyci n 250 mg tablet TAKE 2 TABLETS BY MOUTH TODAY, THEN TAKE 1 TABLET DAILY FOR 4 DAYS 07/15 completed Not Available Not Available Not Available hydrocodone 5 mg-acetamin ophen 325 mg tablet TAKE 1 TABLET BY MOUTH EVERY 6 HOURS NEEDED FOR PAIN 07/14 completed Not Available Not Available Not Available sotalol 80 mg tablet TAKE 1 TABLET BY MOUTH 2 TIMES A DAY. active Not Available Not Available No t Available lisinopril 20 mg tablet TAKE 1 TABLET BY MOUTH EVERY DAY 07/14 completed Not Available Not Available Not Available prednisone 20 mg tablet TAKE 40MG FOR 2 DAYS, THEN 20MG FOR 5 DAYS, THEN 10MG FOR 5 DAYS. 07/15 completed Not Available Not Available Not Available sertraline 100 mg tablet TAKE 2 TABLETS BY MOUTH EVERY MORNING 08/30 completed Not Available Not Available Not Available metolazone 5 mg tablet TAKE 1 TABLET (5 MG) BY MOUTH TWICE WEEKLY. active Not Available Not Available No t Available clobetasol 0.05 % topical cream APPLY 1 APPLICATI ON ONTO THE RASH ON BOTH LEGS TWICE DAILY X14 DAYS 06/17 completed Not Available Not Available Not Available permethrin 5 % topical cream APPLY TOPICALLY ONCE X1 DOSE *APPLY HEAD TO TOE BEFORE BEDTIME, LEAVE ON 8-14 HOURS, THEN RINSE OFF* 08/30 completed Not Available Not Available Not Available venlafaxine ER 150 mg capsule,ext ended release 24 hr TAKE 1 CAPSULE BY MOUTH EVERY DAY IN THE MORNING. active Not Available Not Available No t Available amlodipine 2.5 mg tablet TAKE 1 TABLET BY MOUTH EVERY DAY 07/15 completed Not Available Not Available Not Available Klor-Con 20 mEq oral packet TAKE 1 PACKET BY MOUTH 2 TIMES DAILY. 06/15 completed Not Available Not Available Not Available acetaminoph en 300 mg-codeine 30 mg tablet TAKE 1 TABLET BY MOUTH EVERY 6-8 HOURS NEEDED FOR PAIN 07/14 completed Not Available Not Available Not Available levothyroxi ne 75 mcg tablet TAKE 1 TABLET BY MOUTH EVERY DAY IN THE MORNING active Not Available Not Available No t Available oxycodone-a cetaminophe n 5 mg-325 mg tablet TAKE 1 TABLET BY MOUTH EVERY 6 HOURS NEEDED 07/14 completed Not Available Not Available Not Available potassium chloride ER 20 mEq tablet,exte nded release(par t/cryst) TAKE 1 TABLET BY MOUTH 2 TIMES DAILY active Not Available Not Available No t Available trazodone 100 mg tablet TAKE 1 TABLET BY MOUTH NIGHTLY AT BEDTIME. 08/30 completed Not Available Not Available Not Available benzonatate 100 mg capsule TAKE 1 CAPSULE BY MOUTH EVERY 8 HOURS NEEDED FOR COUGH AND CONGESTIO N 06/17 completed Not Available Not Available Not Available doxycycline monohydrate 100 mg capsule TAKE 1 CAPSULE BY MOUTH TWICE A DAY FOR 7 DAYS 07/15 completed Not Available Not Available Not Available levothyroxi ne 50 mcg tablet TAKE 1 TABLET BY MOUTH EVERY DAY ALONG WITH THE 200MCG AND 75 MCG TABLETS active Not Available Not Available No t Available cephalexin 500 mg capsule TAKE 1 CAPSULE BY MOUTH EVERY 12 HOURS 06/15 completed Not Available Not Available Not Available nitroglycer in 0.[address] 1 TABLET UNDER TONGUE EVERY 5 MINUTES NEEDED FOR CHEST PAIN. active Not Available Not Available No t Available bumetanide 1 mg tablet TAKE 3 TABLETS BY MOUTH ONCE DAILY 07/14 completed Not Available Not Available Not Available levothyroxi ne 200 mcg tablet TAKE 1 TABLET BY MOUTH EVERY MORNING WITH A 75MCG TABLET. DAILY DOSE OF 275MCG DAILY active Not Available Not Available No t Available zolpidem 5 mg tablet TAKE 1 TABLET BY MOUTH NIGHTLY NEEDED FOR SLEEP 07/15 completed Not Available Not Available Not Available albuterol sulfate HFA 90 mcg/actuati on aerosol inhaler Inhale 1 puff every 4 hours by inhalatio n route as needed. 2024 active Not Available Not Available Not Avai lable naproxen 500 mg tablet TAKE 1 TABLET BY MOUTH TWICE A DAY WITH FOOD 06/17 completed Not Available Not Available Not Available amoxicillin 875 mg-potassiu m clavulanate 125 mg tablet TAKE 1 TABLET BY MOUTH EVERY 12 HOURS FOR 10 DAYS 07/15 completed Not Available Not Available Not Available amoxicillin 500 mg-potassiu m clavulanate 125 mg tablet TAKE 1 TABLET BY MOUTH THREE TIMES A DAY 07/14 completed Not Available Not Available Not Available rosuvastati n 20 mg tablet TAKE 1 TABLET BY MOUTH EVERY DAY active Not Available Not Available No t Available Eliquis 5 mg tablet TAKE 1 TABLET BY MOUTH TWICE A DAY active Not Available Not Available No t Available Anoro Ellipta 62.5 mcg-25 mcg/actuati on powder for inhalation TAKE 1 PUFF BY MOUTH EVERY DAY 2024 active Not Available Not Available Not Avai lable Trulicity 1.5 mg/0.5 mL subcutaneou s pen injector INJECT 1.5 MG INTO THE SKIN ONCE A WEEK. 07/15 completed Not Available Not Available Not Available Ozempic 0.25 mg or 0.5 mg (2 mg/1.5 mL) subcutaneou s pen injector INJECT 0.5 MG INTO THE SKIN EVERY 7 DAYS. 06/15 completed Not Available Not Available Not Available Ozempic 1 mg/dose (4 mg/3 mL) subcutaneou s pen injector INJECT 1 MG UNDER THE SKIN ONCE WEEKLY 07/15 completed Not Available Not Available Not Available Vitals Date Recorded Body mass index (BMI) Heart rate Body height Oxygen saturation Oxygen saturation in Arterial blood by Pulse oximetry Heart rate Respiratory rate Body temperature Body weight Systolic blood pressure Diastolic blood pressure Provider Name and Address Organization Details Last Updated DateTime 3 50.8 kg/m2 87 /min 160.02 cm 97 % 97 % 87 /min 15 /min 99 [degF] 243845. 01 g 118 mm[Hg] 66 mm[Hg] Not Available [facility] 3 01:47:59 Date Recorded Body height Body mass index (BMI) Body weight Body temperature Heart rate Oxygen saturation Oxygen saturation in Arterial blood by Pulse oximetry Systolic blood pressure Diastolic blood pressure Provider Name and Address Organization Details Last Updated DateTime 3 160.02 cm 51.7 kg/m2 797277. 97 g 99 [degF] 98 /min 100 % 100 % 126 mm[Hg] 82 mm[Hg] MINOO Pereyra - [facility] 3 16:29:40 Date Recorded Heart rate Respiratory rate Provider N cole and Address Organization Details Last Updated DateTime 07/15/2022 98 /min 15 /min López Murcia MD [address], [place], [address], [facility] [employer] 07/15/2022 16:52:13 Date Recorded Body height Body mass index (BMI) Body weight Body temperature Heart rate Oxygen saturation Oxygen saturation in Arterial blood by Pulse oximetry Systolic blood pressure Diastolic blood pressure Provider Name and Address Organization Details Last Updated DateTime 4 160.02 cm 53.9 kg/m2 437775. 52 g 96.8 [degF] 91 /min 96 % 96 % 132 mm[Hg] 76 mm[Hg] Mary Campos MA [facility] [employer] 4 16:01:53 Date Recorded Heart rate Respiratory rate Provider Alison galvan and Address Organization Details Last Updated DateTime 07/16/2023 91 /min 14 /min López Murcia MD [address], [address], [place], [address], [facility] [employer] 07/16/2023 16:56:34 Date Recorded Body height Heart rate Respiratory rate Oxygen saturation Oxygen saturation in Arterial blood by Pulse oximetry Heart rate Provider Name and Address Organization Details Last Updated DateTime 5 160.02 cm 87 /min 15 /min 95 % 95 % 87 /min López Murcia MD [address], [address], [place], [address] [facility] [employer] 5 15:21:45 Date Recorded Body mass index (BMI) Body weight Body temperature Systolic blood pressure Diastolic blood pressure Provider Name and Address Organization Details Last Updated DateTime 07/14/2024 50.7 kg/m2 346330. 42 g 98.6 [degF] 124 mm[Hg] 78 mm[Hg] Shelly Iglesias MA [facility] [employer] 5 15:28:18 Date Recorded Body height Body mass index (BMI) Body weight Body temperature Heart rate Systolic blood pressure Diastolic blood pressure Provider Name and Address Organization Details Last Updated DateTime 5 160.02 cm 48.9 kg/m2 917112. 49 g 98.7 [degF] 83 /min 122 mm[Hg] 84 mm[Hg] Shelly Iglesias MA [facility] 5 15:15:43 Date Recorded Oxygen saturation Oxygen saturation in Arterial blood by Pulse oximetry Heart rate Respiratory rate Provider Name and Address Organization Details Last Updated DateTime 08/30/2024 93 % 93 % 83 /min 14 /min López Murcia MD [address] [facility] [address], [place], [address], [facility] 5 15:26:06 Social History Question Answer Notes LastModified by Organization Details LastModified Time Tobacco Smoking Status Former Smoker Not Available [facility] 07/04/2022 01:47:21 What Is Your Level Of Alcohol Consumption? None Rarely [id number] [id number] Information not available 07/04/2022 What Is Your Level Of Caffeine Consumption? Moderate [id number] [id number] Information not available 07/04/2022 In The 14 Days Before Symptom Onset, Have You Had Close Contact With A Laboratory-confi rmed COVID-19 While That Case Was Ill? No [id number].030 [id number] Information not available 07/04/2022 In The 14 Days Before Symptom Onset, Have You Had Close Contact With A Person Who Is Under Investigation For COVID-19 While That Person Was Ill? No MIGRATION.0301 [id number] Information not available 07/04/2022 What Type Of Diet Are You Following? REGULAR MIGRATION.0301 [id number] Information not available 07/04/2022 Do You Have An Electrostatic Air Filter? No MIGRATION.0301 [id number] Information not available 07/04/2022 When Did You Quit Smoking? 16+yearssincelastc igarette MIGRATION.0301 [id number] Information not available 07/04/2022 Do You Have A Humidifier? No MIGRATION.0301 [id number] Information not available 07/04/2022 Where Do You Live? [facility] MIGRATION.0301 [id number] Information not available 07/04/2022 Do You Have Moisture Problems In Your Home? No MIGRATION.0301 [id number] Information not available 07/04/2022 What Was The Date Of Your Most Recent Tobacco Screening? 08/30/2024 Information not available 08/30/2024 Do You Have Any Pets? Yes MIGRATION.0301 [id number] Information not available 07/04/2022 Do You Use Your Seat Belt Or Car Seat Routinely? Yes [email or web address] Information not available 07/16/2023 Do You Have Smoke And Carbon Monoxide Detectors In Your Home? Yes MIGRATION.0301 [id number] Information not available 07/04/2022 Are You Passively Exposed To Smoke? No MIGRATION.0301 [id number] Information not available 07/04/2022 How Much Tobacco Do You Smoke? No Information not available 08/30/2024 Do You Feel Stressed (tense, Restless, Nervous, Or Anxious, Or Unable To Sleep At Night)? [id number] Insomnia MIGRATION.0301 [id number] Information not available 07/04/2022 Do You Use Any Illicit Or Recreational Drugs? No MIGRATION.0301 [id number] Information not available 07/04/2022 Do You Use Sunscreen Routinely? Yes MIGRATION.0301 [id number] Information not available 07/04/2022 Have You Recently Traveled Abroad? No MIGRATION.0301 [id number] Information not available 07/04/2022 Do You Have Any Dietary Restrictions? No MIGRATION.0301 [id number] Information not available 07/04/2022 Sex: Unknown Functional Status Question Answer Note LastModified by Organizat ion Details LastModified Time What is your exercise level? None [id number] Information not available 07/04/2022 Mental Status None recorded. Family History Relationship Description Onset Age of this Age Resolved Age Notes LastModified by Organization Details LastModified Time Mother Diabetes mellitus [id number] [id number] Not available 07/04/2022 01:47:30 Sister Chronic kidney disease [id number].109 [id number] Not available 07/04/2022 01:47:30 Sister Drug abuse [id number].328 [id number] Not available 07/04/2022 01:47:30 Sister Malignant neoplasm of uterus [id number] [id number] Not available 07/04/2022 01:47:30 Medical History Condition Response HEART DISEASE/HEART PROBLEMS Y CANCER: SPECIFY Y Gynecological HistoryNo gynecological history recorded. Obstetrics History GPAL:G 0 P 0 0 0 0 Past Encounters Encounter ID Performer Location Encounter Start Date Encounter Closed Date Diagnosis/Indication Diagnosis SNOMED-CT Code Diagnosis ICD10 Code Diagnosis Note [id number] López Murcia MD [facility] [address] 06/06/2022 00:00:00 06/29/2022 00:04:40 [id number] MD [facility] [address] 07/15/2022 16:05:47 07/16/2022 08:50:38 Mild chronic obstructive pulmonary disease 810188827 J44.9 Obstructiv e sleep apnea syndrome 47771112 G47.33 Multiple n odules of lung 222218300 R91.8 [id number] MD SARAH [facility] [address] 07/16/2023 15:43:56 07/17/2023 09:25:59 Mild chronic obstructive pulmonary disease 456189142 J44.9 Obstructiv e sleep apnea syndrome 47350113 G47.33 Multiple n odules of lung 191882564 R91.8 [id number] López Murcia MD [facility] [address] 07/14/2024 14:56:43 08/09/2024 09:23:20 Mild chronic obstructive pulmonary disease 565857150 J44.9 Obstructiv e sleep apnea syndrome [id number] G47.33 Multiple n odules of lung [id number] R91.8 [id number] López Murcia MD [facility] [address] 08/30/2024 14:46:44 08/31/2024 10:49:16 Mild chronic obstructive pulmonary disease [id number] J44.9 Obstructiv e sleep apnea syndrome [id number] G47.33 Multiple n odules of lung [id number] R91.8 Health Concerns Section Related Observation LastModified by Organization Detai ls LastModified Time None Recorded Concern Status LastModified by Organization Details LastModified Time None Recorded Advance Directives Directive None Recorded Payers Encounter Date Sequence Insurance Name Policy Number Policy Chávez Covered Member ID Chávez Member ID Guarantor Name 07/15/2022 1 [facility] (MEDICARE - MEDICAID REPLACEMENT HMO) [id number] Devorah Servin [id number] Devorah Servin 07/16/2023 2 [place] Devorah Servin [id number] Devorah Servin 07/16/2023 1 [facility] (MEDICARE REPLACEMENT/A DVANTAGE - PPO) [id number] Devorah Servin [id number] Devorah Srevin 07/14/2024 2 [place] Devorah Servin [id number] Devorah Servin 07/14/2024 1 [facility] (MEDICARE REPLACEMENT/A DVANTAGE - PPO) [id number] Devorah Joneson [id number] Devorah Servin 08/30/2024 2 [place] Devorah Servin [id number] Devorah Servin 08/30/2024 1 [facility] (MEDICARE REPLACEMENT/A DVANTAGE - PPO) [id number] Devorah Servin [id number] Devorah Servin Notes Date Note Type Note Provider Name and Address Organization Details Recorded Time 3 text/html Primary care/Referring provider: Dilan Metzger, MDPatient is here to go over her lab data and PFT as part of her shortness of breath evaluation/management.In tia development of shortness of breath: 2013Duration of shortness of breath: 10 yearsCondition of shortness of breath: worseningTiming of shortness of breath: noneFrequency: up to 10 times a dayLimits activities: yesAggravating factors: walking the dog, carrying groceriesAlleviating factors: restModified [employer] [place] (mMRC) Dyspnea Scale - Grade 2Grade 0 I only get breathless with strenuous exercise .Grade 1 I get short of breath when hurrying on the level or walking up a slight hill .Grade 2 I walk slower than people of the same age on the level because of breathlessness or have to stop for breath when walking at my own pace on the level .Grade 3 I stop for breath after walking about 100 yards or after a few minutes on the level .Grade 4 I am too breathless to leave the house or I am breathless when dressing .Treatment history:Albuterol HFA as needed since noro Ellipta 62.5/25 mcg 1 inhalation daily since 2020Other symptoms:Drooling: noDysarthria: noNeck pain: noOdynophagia: noDysphagia: noWeak mastication: noFacial weakness: noNasal speech: noProtruding tongue: noProductive cough: noWheezing: yesChest tightness: yesOrthopnea: noFrequent throat clearing or swallowing: yesPalpitations: yesHeartburn: noEdema: yesEnvironmental exposures:Nicotine smoke: 1 ppd 1012-0870 = 30 pack yearsPaint: noDye: noDust mites: yesMold: noDamp basement: noWood burning stove: noAnimal dander: cockatiels ([phone]), dogs nowCockroaches: noPollen: yesArsenic: noAsbestos: noBeryllium: noCadmium: noChromium: noCoal smoke: noDiesel fumes: noNickel: noSilica: noSoot: no At home since 2016, the patient uses a ResMed AirSense 10 autoset unit with heated humidification. The patient does not need the ramp to start low and go up slowly on the pressure anymore. There is some xerostomia in a.m. There is no hose/mask condensation with water. The patient wears a ResMed small Mirage Rockbridge full face mask without chin strap. There is no claustrophobia, no nostril/nose bridge irritation, no facial rash, no facial numbness, no nosebleeding. The patient feels more refreshed upon waking and daytime alertness is improved. Energy levels are sustained until mid afternoon, around 3 pm. At home, the patient sleeps from 2 am to 11 am and wakes up without an alarm. Snoring: moderate, since . Snorting: no Choking: no Coughing: yes Gasping: no Gagging: no Sighing: yes Witnessed apnea: yes Twitching or jerking of leg(s), arm(s), body, head: no Teeth grinding: no Teeth clenching: no Sleeptalking: no Sleepwalking: no Sleep crying: no Bedwetting: no Tongue/lip/gum/cheek biting: no Sleeping with open mouth: yes Sleep paralysis: no Hypnagogic hallucinations: no Hypnopompic hallucinations: no Vivid dreams: yes Difficulty with sleep onset: yes Difficulty with sleep maintenance: yes Sleep interruptions: dreams Patient wakes up with: fatigue, xerostomia, headaches Daytime cataplexy: no Morning hypersomnolence: no Afternoon hypersomnolence: yes Caffeine sources in diet: soda 3 cans per day Associated medical and psychiatric conditions: Congestive heart failure: no Coronary artery disease: yes Myocardial infarction: yes Hypertension: yes Stroke: no Bronchial asthma: no Chronic obstructive pulmonary disease: no Depression: yes Bipolar disorder: no Anxiety: no Panic disorder: no Posttraumatic stress disorder: no Attention deficit and hyperactivity disorder: no Obsessive Compulsive disorder: no Schizophrenia: no Schizoaffective disorder: no Personality disorder: no Chronic analgesic use: yes Tylenol 3 Chronic sedative/hypnotic use: no EPWORTH SLEEPINESS SCALE (ESS) CHANCE OF DOZING SCORE 0 = would never doze 1 = slight chance of dozing 2 = moderate chance of dozing 3 = high chance of dozingSITUATION AND CHANCE OF DOZINGSitting and reading - 0Watching television - 0Sitting inactive in a public place (e.g. a theater or meeting) - 0As a passenger in a car for an hour without a break - 2Lying down to rest in the afternoon when circumstances permit - 2Sitting and talking to someone - 0Sitting quietly after lunch without alcohol - 0In a car, while stopped for a few minutes in the traffic - 0TOTAL SCORE 4Subjectively, patient has a slight chance of dozing. López Murcia MD [address] [place] [address], [facility] [address], [place], [address], [place] [facility] 07/15/2022 17:32:02 4 text/html Primary care/Referring provider: Dilan Metzger, MDPatient is here to go over her COPD management.Initial development of shortness of breath: 2013Duration of shortness of breath: 11 yearsCondition of shortness of breath: stableTiming of shortness of breath: noneFrequency: up to 10 times a dayLimits activities: yesAggravating factors: walking the dog, carrying groceriesAlleviating factors: restModified [employer] [place] (mMRC) Dyspnea Scale - Grade 2Grade 0 I only get breathless with strenuous exercise .Grade 1 I get short of breath when hurrying on the level or walking up a slight hill .Grade 2 I walk slower than people of the same age on the level because of breathlessness or have to stop for breath when walking at my own pace on the level .Grade 3 I stop for breath after walking about 100 yards or after a few minutes on the level .Grade 4 I am too breathless to leave the house or I am breathless when dressing .Treatment history:Albuterol HFA as needed since noro Ellipta 62.5/25 mcg 1 inhalation daily since 2020Other symptoms:Drooling: noDysarthria: noNeck pain: noOdynophagia: noDysphagia: noWeak mastication: noFacial weakness: noNasal speech: noProtruding tongue: noProductive cough: noWheezing: yesChest tightness: yesOrthopnea: noFrequent throat clearing or swallowing: yesPalpitations: yesHeartburn: noEdema: yesEnvironmental exposures:Nicotine smoke: 1 ppd 4247-8730 = 30 pack yearsPaint: noDye: noDust mites: yesMold: noDamp basement: noWood burning stove: noAnimal dander: cockatiels ([id number]), dogs nowCockroaches: noPollen: yesArsenic: noAsbestos: noBeryllium: noCadmium: noChromium: noCoal smoke: noDiesel fumes: noNickel: noSilica: noSoot: no The patient was told her ResMed small Mirage Rockbridge full face mask is no longer available. No download can be obtained from her CPAP unit as it does not contain an SD card. At home since 07/15/22, the patient uses a ResMed AirSense 10 autoset unit with heated humidification. The patient does not need the ramp to start low and go up slowly on the pressure anymore. There is some xerostomia in a.m. There is no hose/mask condensation with water.The patient wears a ResMed small Mirage [place]bridge full face mask without chin strap. There is no claustrophobia, no nostril/nose bridge irritation, no facial rash, no facial numbness, no nosebleeding. The patient feels more refreshed upon waking and daytime alertness is improved. Energy levels are sustained until mid afternoon, around 3 pm. At home, the patient sleeps from 2 am to 11 am and wakes up without an alarm. Snoring: moderate, since 1980s.Snorting: noChoking: noCoughing: yesGasping: noGagging: noSighing: yesWitnessed apnea: yesTwitching or jerking of leg(s), arm(s), body, head: noTeeth grinding: noTeeth clenching: noSleeptalking: noSleepwalking: noSleep crying: noBedwetting: noTongue/lip/gum/cheek biting: noSleeping with open mouth: yesSleep paralysis: noHypnagogic hallucinations: noHypnopompic hallucinations: noVivid dreams: yesDifficulty with sleep onset: yesDifficulty with sleep maintenance: yesSleep interruptions: dreamsPatient wakes up with: fatigue, xerostomia, headachesDaytime cataplexy: noMorning hypersomnolence: noAfternoon hypersomnolence: yesCaffeine sources in diet: soda 3 cans per day Associated medical and psychiatric conditions:Congestive heart failure: noCoronary artery disease: yesMyocardial infarction: yesHypertension: yesStroke: noBronchial asthma: noChronic obstructive pulmonary disease: noDepression: yesBipolar disorder: noAnxiety: noPanic disorder: noPosttraumatic stress disorder: noAttention deficit and hyperactivity disorder: noObsessive Compulsive disorder: noSchizophrenia: noSchizoaffective disorder: noPersonality disorder: noChronic analgesic use: yes Tylenol 3Chronic sedative/hypnotic use: no EPWORTH SLEEPINESS SCALE (ESS) CHANCE OF DOZING SCORE0 = would never doze1 = slight chance of dozing2 = moderate chance of dozing3 = high chance of dozingSITUATION AND CHANCE OF DOZINGSitting and reading - 0Watching television - 1Sitting inactive in a public place (e.g. a theater or meeting) - 0As a passenger in a car for an hour without a break - 0Lying down to rest in the afternoon when circumstances permit - 1Sitting and talking to someone - 0Sitting quietly after lunch without alcohol - 0In a car, while stopped for a few minutes in the traffic - 0TOTAL SCORE 2Subjectively, patient has a slight chance of dozing. López Murcia MD [address] [place] [address], [facility] [address], [place], [address], [place] - [facility] 07/16/2023 16:56:46 5 text/html Primary care/Referring provider: Dilan Metzger, [facility] is here to go over her COPD management.Initial development of shortness of breath: 2013Duration of shortness of breath: 12 yearsCondition of shortness of breath: stableTiming of shortness of breath: noneFrequency: up to 8 times a dayLimits activities: yesAggravating factors: walking the dog, carrying groceriesAlleviating factors: restModified [employer] [place] (mMRC) Dyspnea Scale - Grade 2Grade 0 I only get breathless with strenuous exercise .Grade 1 I get short of breath when hurrying on the level or walking up a slight hill .Grade 2 I walk slower than people of the same age on the level because of breathlessness or have to stop for breath when walking at my own pace on the level .Grade 3 I stop for breath after walking about 100 yards or after a few minutes on the level .Grade 4 I am too breathless to leave the house or I am breathless when dressing .Treatment history:Albuterol HFA as needed since noro Ellipta 62.5/25 mcg 1 inhalation daily since 2020Other symptoms:Drooling: noDysarthria: noNeck pain: noOdynophagia: noDysphagia: noWeak mastication: noFacial weakness: noNasal speech: noProtruding tongue: noProductive cough: noWheezing: yesChest tightness: yesOrthopnea: noFrequent throat clearing or swallowing: yesPalpitations: yesHeartburn: noEdema: yesEnvironmental exposures:Nicotine smoke: 1 ppd 7610-0949 = 30 pack yearsPaint: noDye: noDust mites: yesMold: noDamp basement: noWood burning stove: noAnimal dander: cockatiels ([phone]), dogs nowCockroaches: noPollen: yesArsenic: noAsbestos: noBeryllium: noCadmium: noChromium: noCoal smoke: noDiesel fumes: noNickel: noSilica: noSoot: no At home since 07/16/23, the patient uses a ResMed AirSense 10 autoset unit with heated humidification. The patient does not need the ramp to start low and go up slowly on the pressure anymore. There is some xerostomia in a.m. There is no hose/mask condensation with water.The patient wears a ResMed small Mirage [place]bridge full face mask without chin strap. There is no claustrophobia, no nostril/nose bridge irritation, no facial rash, no facial numbness, no nosebleeding. The patient feels more refreshed upon waking and daytime alertness is improved. Energy levels are sustained until mid afternoon, around 3 pm. At home, the patient sleeps from 2 am to 11 am and wakes up without an alarm. Snoring: moderate, since .Snorting: noChoking: noCoughing: yesGasping: noGagging: noSighing: yesWitnessed apnea: yesTwitching or jerking of leg(s), arm(s), body, head: noTeeth grinding: noTeeth clenching: noSleeptalking: noSleepwalking: noSleep crying: noBedwetting: noTongue/lip/gum/cheek biting: noSleeping with open mouth: yesSleep paralysis: noHypnagogic hallucinations: noHypnopompic hallucinations: noVivid dreams: yesDifficulty with sleep onset: yesDifficulty with sleep maintenance: yesSleep interruptions: dreamsPatient wakes up with: fatigue, xerostomia, headachesDaytime cataplexy: noMorning hypersomnolence: noAfternoon hypersomnolence: yesCaffeine sources in diet: soda 3 cans per day Associated medical and psychiatric conditions:Congestive heart failure: noCoronary artery disease: yesMyocardial infarction: yesHypertension: yesStroke: noBronchial asthma: noChronic obstructive pulmonary disease: noDepression: yesBipolar disorder: noAnxiety: noPanic disorder: noPosttraumatic stress disorder: noAttention deficit and hyperactivity disorder: noObsessive Compulsive disorder: noSchizophrenia: noSchizoaffective disorder: noPersonality disorder: noChronic analgesic use: yes Tylenol 3Chronic sedative/hypnotic use: no EPWORTH SLEEPINESS SCALE (ESS) CHANCE OF DOZING SCORE0 = would never doze1 = slight chance of dozing2 = moderate chance of dozing3 = high chance of dozingSITUATION AND CHANCE OF DOZINGSitting and reading - 0Watching television - 1Sitting inactive in a public place (e.g. a theater or meeting) - 0As a passenger in a car for an hour without a break - 0Lying down to rest in the afternoon when circumstances permit - 1Sitting and talking to someone - 0Sitting quietly after lunch without alcohol - 0In a car, while stopped for a few minutes in the traffic - 0TOTAL SCORE 2Subjectively, patient has a slight chance of dozing. López Murcia MD [address] [place] [address], [address], [facility] 07/14/2024 15:41:51 5 text/html Primary care/Referring provider: Dilan Metzger MD CC: I was told by [facility] that I needed an updated 6MW to requalify for O2. Patient is here to go over her COPD management.Initial development of shortness of breath: 2013Duration of shortness of breath: 12 yearsCondition of shortness of breath: stableTiming of shortness of breath: noneFrequency: up to 8 times a dayLimits activities: yesAggravating factors: walking the dog, carrying groceriesAlleviating factors: restModified [employer] [place] (mMRC) Dyspnea Scale - Grade 2Grade 0 I only get breathless with strenuous exercise .Grade 1 I get short of breath when hurrying on the level or walking up a slight hill .Grade 2 I walk slower than people of the same age on the level because of breathlessness or have to stop for breath when walking at my own pace on the level .Grade 3 I stop for breath after walking about 100 yards or after a few minutes on the level .Grade 4 I am too breathless to leave the house or I am breathless when dressing .Treatment history:Albuterol HFA as needed since noro Ellipta 62.5/25 mcg 1 inhalation daily since 2020Other symptoms:Drooling: noDysarthria: noNeck pain: noOdynophagia: noDysphagia: noWeak mastication: noFacial weakness: noNasal speech: noProtruding tongue: noProductive cough: noWheezing: yesChest tightness: yesOrthopnea: noFrequent throat clearing or swallowing: yesPalpitations: yesHeartburn: noEdema: yesEnvironmental exposures:Nicotine smoke: 1 ppd 6911-9162 = 30 pack yearsPaint: noDye: noDust mites: yesMold: noDamp basement: noWood burning stove: noAnimal dander: cockatiels ([phone]), dogs nowCockroaches: noPollen: yesArsenic: noAsbestos: noBeryllium: noCadmium: noChromium: noCoal smoke: noDiesel fumes: noNickel: noSilica: noSoot: no At home since 07/16/23, the patient uses a ResMed AirSense 10 autoset unit with heated humidification. The patient does not need the ramp to start low and go up slowly on the pressure anymore. There is some xerostomia in a.m. There is no hose/mask condensation with water.The patient wears a ResMed small Mirage Rockbridge full face mask without chin strap. There is no claustrophobia, no nostril/nose bridge irritation, no facial rash, no facial numbness, no nosebleeding. The patient feels more refreshed upon waking and daytime alertness is improved. Energy levels are sustained until mid afternoon, around 3 pm. At home, the patient sleeps from 2 am to 11 am and wakes up without an alarm. Snoring: moderate, since .Snorting: noChoking: noCoughing: yesGasping: noGagging: noSighing: yesWitnessed apnea: yesTwitching or jerking of leg(s), arm(s), body, head: noTeeth grinding: noTeeth clenching: noSleeptalking: noSleepwalking: noSleep crying: noBedwetting: noTongue/lip/gum/cheek biting: noSleeping with open mouth: yesSleep paralysis: noHypnagogic hallucinations: noHypnopompic hallucinations: noVivid dreams: yesDifficulty with sleep onset: yesDifficulty with sleep maintenance: yesSleep interruptions: dreamsPatient wakes up with: fatigue, xerostomia, headachesDaytime cataplexy: noMorning hypersomnolence: noAfternoon hypersomnolence: yesCaffeine sources in diet: soda 3 cans per day Associated medical and psychiatric conditions:Congestive heart failure: noCoronary artery disease: yesMyocardial infarction: yesHypertension: yesStroke: noBronchial asthma: noChronic obstructive pulmonary disease: noDepression: yesBipolar disorder: noAnxiety: noPanic disorder: noPosttraumatic stress disorder: noAttention deficit and hyperactivity disorder: noObsessive Compulsive disorder: noSchizophrenia: noSchizoaffective disorder: noPersonality disorder: noChronic analgesic use: yes Tylenol 3Chronic sedative/hypnotic use: no EPWORTH SLEEPINESS SCALE (ESS) CHANCE OF DOZING SCORE0 = would never doze1 = slight chance of dozing2 = moderate chance of dozing3 = high chance of dozingSITUATION AND CHANCE OF DOZINGSitting and reading - 0Watching television - 1Sitting inactive in a public place (e.g. a theater or meeting) - 0As a passenger in a car for an hour without a break - 0Lying down to rest in the afternoon when circumstances permit - 0Sitting and talking to someone - 0Sitting quietly after lunch without alcohol - 0In a car, while stopped for a few minutes in the traffic - 0TOTAL SCORE 1Subjectively, patient has a slight chance of dozing. López Murcia MD [address] [place] [address], [place] [address], [place], [address], [facility] 08/30/2024 16:05:46 OBGyn Episode No OBEpisode recorded.
--- OUTSIDE RECORDS SUMMARY | 2024-09-02 15:32 | XMS_ITS | Encounter Summary ---
Author Organization [facility] Address [facility] [place] [address] Care Team Providers Care Shoe Shiner Name Role Phone Dilan Metzger MD Primary Care Provider [phone] Encounter Details Date Type Department Care Team (Late Contact Info) Description 01/15/2018 Abstract [facility] CONVERSION [address] [place] [address] , Generic ConversionMD Social History Tobacco Use Types Packs/Day Years Used Date Smoking Tobacco: Never Assessed Comments Unknown Sex and Gender Information Value Date Recorded Sex Assigned at Not on file Legal Sex Female 7:50 PM CDT Gender Identity Not on file Sexual Orientation Not on file documented as of this encounter Plan of Treatment Upcoming Encounters Date Type Department Care Team (Late Contact Info) Description 09/28/2024 1:20 PM CDT Office Visit [facility] Family & Internal Medicine [facility] [address] [place] [address] Dilan Metzger MD [address] [facility] [address] [place] [address] documented as of this encounter Visit Diagnoses Not on filedocumented in this encounter Additional Health Concerns Infection Onset Date Last Indicated Resolved Time COVID-19 Rule Out 02/18/2020 02/18/2020 02/20/2020 9:00 AM CDT documented as of this encounter Care Teams Shoe Shiner Relationship Specialty Start Date End Date Dilan Metzger MD [address] [place], [place] [address] [address] PCP - General FAMILY PRACTICE 02/18/18 documented as of this encounter
--- OUTSIDE RECORDS SUMMARY | 2024-09-02 15:32 | XMS_ITS | Encounter Summary ---
Author Organization [facility] Address [address] [facility] [address] [place] [id number] Care Team Providers Care Clean Out Driller Helper Name Role Phone Dilan Metzger MD Primary Care Provider + Encounter Details Date Type Department Care Team (Late st Contact Info) Description 05/23/2016 Orders Only [facility] ProviderSydnee MD [address] [place] [address] Social History Tobacco Use Types Packs/Day Years Used Date Smoking Tobacco: Former Cigarettes Q uit: 05/05/1996 Alcohol Use Standard Drinks/Week Comments Yes 0 (1 standard drink = 0.6 oz pur e alcohol) Comments Unknown Sex and Gender Information Value Date Recorded Sex Assigned at Not on file Legal Sex Female 6:34 AM BRAND LEAD Gender Identity Not on file Sexual Orientation Not on file documented as of this encounter Plan of Treatment Not on file documented as of this encounter Procedures Procedure Name Priority Date/Time Associated Diagnosis Comments CARDIOLOGY REPORT 05/23/2016 documented in this encounter Results * CARDIOLOGY REPORT (05/23/2016) Anatomical Region Laterality Modality Other Narrative 05/23/2016 Ordered by an unspecified provider. Historical Provider [facility] Final Result documented in this encounter Visit Diagnoses Not on filedocumented in this encounter Care Teams Clean Out Driller Helper Relationship Specialty Start Date End Date Dilan Metzger MD PCP - General 04/13/09 documented as of this encounter
--- OUTSIDE RECORDS SUMMARY | 2024-09-02 15:32 | XMS_ITS | Encounter Summary ---
Author Organization [facility] Address [address] [place] [address] Care Team Providers Care Broke Beater Operator Name Role Phone Dilan Metzger MD Primary Care Provider [phone] Reason for Visit * Reason Comments Pacemaker Check Encounter Details Date Type Department Care Team (Latest Contact Info) Description 09/02/2024 11:15 AM CDT Procedure visit [facility] [address] [place] [address] Cardiac pacemaker in situ (Primary Dx); Paroxysmal atrial fibrillation (CMS/HCC); Sick sinus syndrome (CMS/HCC) Social History Tobacco Use Types Packs/Day Years Used Date Smoking Tobacco: Former Cigarettes S tarted: 1996 Alcohol Use Standard Drinks/Week Comments Never 0 (1 standard drink = 0.6 oz pur e alcohol) Comments No Sex and Gender Information Value Date Recorded Sex Assigned at Not on file Legal Sex Female 2:16 PM CDT Gender Identity Not on file Sexual Orientation Not on file documented as of this encounter Procedure Notes * Jo Donaldson - 09/02/2024 9:35 AM CDTAssociated Order(s): PACER ANALYSIS REMOTE, UP TO 90 DAYS Procedure(s): CA REM INTERROG PM/LDLS PM <90 D PHYS/QHP; CA REM INTERROG PM/LDLS PM/IDS <90 DTECH REVIEW Pre-Procedure Diagnose(s): Cardiac pacemaker in situ; Paroxysmal atrial fibrillation (CMS/HCC); Sick sinus syndrome (CMS/HCC) See scan documented in this encounter Plan of Treatment Upcoming Encounters Date Type Department Care Team (Late st Contact Info) Description 12/09/2024 8:15 AM CDT Procedure visit [facility] - [address] [place] [phone] 02/04/2025 1:15 PM CDT Office Visit [facility] [address] [place] [address] Perico Caldera MD [address] [place] [phone] documented as of this encounter Procedures Procedure Name Priority Date/Time Associated Diagnosis Comments CA REM INTERROG PM/LDLS PM/IDS <90 D TECH REVIEW Routine 09/01/2024 11:22 PM CDT Cardiac pacemaker in situ Paroxysmal atrial fibrillation (CMS/HCC) Sick sinus syndrome (CMS/HCC) CA REM INTERROG PM/LDLS PM <90 D PHYS/QHP Routine 09/01/2024 11:22 PM CDT Cardiac pacemaker in situ Paroxysmal atrial fibrillation (CMS/HCC) Sick sinus syndrome (CMS/HCC) documented in this encounter Results * CA REM INTERROG PM/LDLS PM <90 D PHYS/QHP, CA REM INTERROG PM/LDLS PM/IDS <90 D TECH REVIEW (09/01/2024 11:22 PM CDT) 09/01/2024 11:2 2 PM CDT us Dilan Kitchen MD CARDIAC SERVICES ORDERABLES Melo fidel Result - Final INTERFACE SYSTEM Refer to clinic/hospital department documented in this encounter Visit Diagnoses Diagnosis Cardiac pacemaker in situ- Primary Paroxysmal atrial fibrillation (CMS/HCC) Atrial fibrillation Sick sinus syndrome (CMS/HCC) Sinoatrial node dysfunction documented in this encounter Care Teams Broke Beater Operator Relationship Specialty Start [place] [id number] [id number] PCP - General Family Practice 02/05/24 documented as of this encounter
--- OUTSIDE RECORDS SUMMARY | 2024-09-02 15:32 | XMS_ITS | Clinical Summary ---
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 3 Active Eliquis 5 mg tablet Take 1 Tablet by mouth 2 times daily. 2 Active benzonatate (TESSALON) 100 mg capsule TAKE 1 CAPSULE BY MOUTH EVERY 8 HOURS NEEDED FOR COUGH AND CONGESTION Active clobetasoL (TEMOVATE) 0.05 % Cream APPLY 1 APPLICATION ONTO THE RASH ON BOTH LEGS TWICE DAILY X14 DAYS 3 Active levothyroxine 200 mcg tablet TAKE 1 TABLET BY MOUTH EVERY MORNING WITH 75MCG FOR A TOTAL DOSE OF 275MCG DAILY 2 Active levothyroxine 75 mcg tablet Take 1 Tablet by mouth daily in the morning. 2 Active losartan (COZAAR) 50 mg tablet Take 1 Tablet by mouth daily. 3 Active rosuvastatin (CRESTOR) 20 mg tablet Take 1 Tablet by mouth daily. 2 Active sotaloL (BETAPACE) 80 mg tablet TAKE 1 TABLET BY MOUTH 2 TIMES A DAY. 3 Active traZODone (DESYREL) 50 mg tablet TAKE 1 TABLET BY MOUTH AT BEDTIME, MAY INCREASE TO 2 TABLETS AT BEDTIME IF NEEDED. 3 Active umeclidinium-anila anteroL (ANORO ELLIPTA) 62.5-25 mcg/actuation Disk with Device TAKE 1 PUFF BY MOUTH EVERY DAY 1 Active venlafaxine (EFFEXOR XR) 150 mg Extended Release 24 hour capsule Take 1 Capsule by mouth daily in the morning. 1 Active bumetanide (BUMEX) 2 mg tablet Take 1.5 Tablets (3 mg) by mouth daily. 135 Tablet 3 4 Active potassium chloride (Klor-Con M20) 20 mEq Extended Release tablet Take 1 Tablet (20 mEq) by mouth 2 times daily. 180 Tablet 3 4 Active Additional Information Patient taking differently:20 mEq Oral TWO TIMES DAILY,Take one extra potassium on metolazone days., Reported on 08/05/2024 metOLazone (ZAROXOLYN) 5 mg tablet Take 1 Tablet (5 mg) by mouth twice weekly. 24 Tablet 3 4 Active aspirin (ECOTRIN EC) 81 mg Tablet, Delayed Release (E.C.) Take 1 Tablet (81 mg) by mouth daily. 30 Tablet 4 Active nitroglycerin (NITROSTAT) 0.4 mg Tablet, Sublingual Place 1 Tablet (0.4 mg) under tongue every 5 minutes as needed for Chest Pain. 25 Tablet 1 4 Active ferrous sulfate 325 mg (65 mg iron) tablet Take 325 mg by mouth daily. Active Active Problems Patient Care Coordination No te Formatting of this note migh t be different from the original. 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 Verenice Cruz Problem Noted Date Diagnosed Date Hypokalemia 08/05/2024 Mixed stress and urge urinary incontinence 01/20 Chest pain 10/25/2022 NSTEMI (non-ST elevated myocardial infarction) 0 10/25/2022 Chronic back pain 04/17/2022 Overview (10/31/2023): Last Assessment & Plan: Condition: stable Take [...] to improve Major depression, recurrent 04/17/2022 Overview (10/31/2023): Last Assessment & Plan: Condition: stable Depression screening done today - see results. Medications: Taking medications as prescribed If taking medications, do not stop treatment without consulting healthcare provider. If symptoms worsen or do not improve/stabilize, notify health care provider right away. If thoughts of harming self or others notify health care provider immediately &/or seek urgent/emergent care including calling Suicide Hotline (211 or ) or 911. Follow up in if symptoms worsen or fail to improve with PCP Body mass index (BMI) of 50-59.9 in adult 2021 Overview (10/31/2023): Last Assessment & Plan: Condition: stable Educated patient on normal BMI range of 18.5 to 24.9 Advised to monitor nutrition to not exceed caloric needs, or as indicated by PCP in order to maintain a healthy weight and BMI. Advised to engage in aerobic physical activity, if indicated to be safe by PCP, to assist with maintaining a healthy weight and BMI. Advised to follow up with PCP to address nutrition as needed to assist with reaching or maintaining a healthy weight and BMI. Follow up as scheduled with PCP/specialist. Encounter for screening for colorectal malignant neoplasm 04/16/2022 Overview (10/31/2023): Last Assessment & Plan: Condition: stable Cologaurd Kit ordered today. Test explained to Devorah, will call once resulted. Follow up as scheduled with PCP/specialist. Stable angina 04/16/2022 Overview (10/31/2023): Last Assessment & Plan: Condition: stable Follow up in: if symptoms worsen or fail to improve Pulmonary HTN 10/27/2017 Encounter for monitoring sotalol therapy 018 Multiple pulmonary nodules 01/30/2017 Chronic heart failure with preserved ejection fr action 01/08/2017 Sick sinus syndrome 01/08/2017 Morbid (severe) obesity due to excess calories 0 12/22/2016 Restrictive ventilatory defect 12/22/2016 Lymphedema 07/24/2016 Chronic edema 03/12/2016 CHF (congestive heart failure) 08/01/2015 Overview (10/31/2023): Last Assessment & Plan: Condition: stable Discussed with Devorah the importance of medication compliance and conitnued monitoring. Discussed the importance of daily weight checks. Discussed concerning s/s and when to seek ER care. Follow up as scheduled with PCP/specialist. Hypertensive heart disease with diastolic heart failure Hypertensive heart disease with congestive heart failure 08/01/2015 Overview (10/31/2023): Last Assessment & Plan: Condition: stable Education: Regular follow up with PCP Pharmacy and Therapeutics: Member has filled prescribed medications: Yes: Taking as prescribed Member has working BP cuff: Yes: Recommended taking BP cuff and log to PCP/Specialist appointments Follow up in: if symptoms worsen or fail to improve Chronic anticoagulation 08/01/2015 Overview (10/31/2023): Chronic anticoagulation Presence of cardiac pacemaker 08/01/2015 Overview (10/31/2023): Medtronic Tanika Dual Pacemaker Dx; SSS, PAF. Gen change 07/16/2021-Uppstrom, chronic leads 11/01/2010 Carelink remote home monitoring Q3 months, Office pacer checks Q1 year. Hypoxemia 11/18/2014 COPD (chronic obstructive pulmonary disease) Overview (10/31/2023): Last Assessment & Plan: Condition: stable Reviewed trigger avoidance and reviewed proper use of inhalers and rescue medications. Reviewed concerning signs/symptoms and ER precautions. 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 09/18/2013 Overview (10/31/2023): ASCVD Paroxysmal atrial fibrillation 09/18/2013 Overview (10/31/2023): Last Assessment & Plan: Condition: stable Follow up in: if symptoms worsen or fail to improve Paroxysmal atrial fibrillation Obstructive sleep apnea syndrome 04/19/2013 Overview (10/31/2023): SOFI on CPAP Last Assessment & Plan: Condition: stable Follow up in: if symptoms worsen or fail to improve SOFI on CPAP Venous insufficiency 02/09/2013 Depression 01/07/2013 History of AL (myocardial infarction) 01/07/2013 Hyperlipidemia 01/07/2013 Overview (10/31/2023): Images from the original note were not included. Last Assessment & Plan: Condition: asymptomatic Follow up in: if symptoms worsen or fail to improve Atherosclerosis of coronary artery 11/13/2011 Overview (10/31/2023): Coronary artery disease involving resighini coronary artery of resighini heart without angina pectoris Benign hypertension 11/13/2011 Overview (10/31/2023): Last Assessment & Plan: Condition: asymptomatic Follow up as scheduled with PCP/specialist. HTN (hypertension), benign Hypothyroidism 11/13/2011 Overview (10/31/2023): No recent lab data in care everywhere Last Assessment & Plan: Condition: asymptomatic Discussed with Devorah the importance of medication compliance and conitnued monitoring. Follow up in: if symptoms worsen or fail to improve Malignant neoplasm of urinary bladder 11/13/2011 Palpitations 11/13/2011 Thromboembolic disorder 11/13/2011 Malignant neoplastic disease 11/07/2011 Ovarian retention cyst 11/07/2011 Encounters Date Type Department Care Team Description 09/02/2024 11:15 AM CDT Procedure visit [facility] Heart and Vascular - [address] [place] [address] Cardiac pacemaker in situ (Primary Dx); Paroxysmal atrial fibrillation (CMS/HCC); Sick sinus syndrome (CMS/HCC) 08/05/2024 1:45 PM CDT Office Visit [facility] Heart and Vascular - [address] [place] [address] Perico Caldera MD Chronic heart failure with preserved ejection fraction (CMS/HCC) (Primary Dx); 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; Paroxysmal atrial fibrillation (CMS/HCC); Benign hypertension; Encounter for monitoring sotalol therapy; Hypokalemia; Presence of cardiac pacemaker; Sick sinus syndrome (CMS/HCC); History of AL (myocardial infarction); Chronic anticoagulation from Last 3 Months Social History Tobacco Use Types Packs/Day Years [...] Sign Reading Time Taken Comments Blood Pressure 120/64 08/05/2024 1:28 PM CDT Pulse 95 08/05/2024 1:28 PM CDT Temperature - - Respiratory Rate - - Oxygen Saturation 95% 08/05/2024 1:28 PM CDT Inhaled Oxygen Concentration - - Weight 123.4 kg (272 lb) 08/05/2024 1:28 PM CDT Height 160 cm (5' 3 ) 08/05/2024 1:28 PM CDT Body Mass Index 48.18 08/05/2024 1:28 PM CDT Plan of Treatment Upcoming Encounters Date Type Department Care Team (Late st Contact Info) Description 12/09/2024 8:15 AM CDT Procedure visit [facility] Heart and Vascular - [address] [place] [id number] 02/04/2025 1:15 PM CDT Office Visit [facility] Heart and Vascular - [address] [place] [phone] Perico Caldera MD [address] [place] [address] Health Maintenance Due Date Last Done Comments DTAP/TDAP/TD VACCINES (1 - Tdap) 1970 COLORECTAL SCREENING 01/13/1996 Colorectal Cancer Screening 01/13/1996 FIT-DNA Q 3 years 01/13/1996 FIT/FOBT Q 1 year 01/13/1996 Flex Sig/CT Colonography Q 5 years 01/13/1996 ZOSTER VACCINE (1 of 2) 2001 RSV VACCINE (60+ or ) (1 - Risk 60-74 years 1-dose series) 2011 BREAST CANCER SCREENING 08/28/2021 08/28/2020, 04/06 PNEUMOCOCCAL VACCINE 50+ YEA RS (3 of 3 - PCV20 or PCV21) 03/07/2022 03/07/2017, 01/26/2014, 01/26/2014 INFLUENZA VACCINE (#1) 2023 , 03/11/2019, 02/09/2013 Medicare Advantage ([place]) Prev entative Visit/Annual Wellness Visit 05/05/2024 OSTEOPOROSIS SCREENING 03/04/2028 03/04/2023 Medical Devices Implanted Type Area Restaurant Mgr Device Identifier Shelf Expiration Date Model / Serial / Lot Ra Lead-11/01/2010 Implanted:10/05 (Quantity not on file) Lead [employer] MEDTRONIC [id number] CAPSUREFIX MRI SURESCAN / / Rv Lead-11/01/2010 Implanted:10/05 (Quantity not on file) Lead [employer] MEDTRONIC 5086MRI CAPSUREFIX MRI SURESCAN / [id number] / Pacemaker-01/12 Implanted:01/03 (Quantity not on file) Pacemaker [employer] [id number] AZUR E XT DR DELGADO / [id number] / Procedures Procedure Name Priority Date/Time Associated Diagnosis Comments CA REM INTERROG PM/LDLS PM/IDS <90 D TECH REVIEW Routine 09/01/2024 11:22 PM CDT Cardiac pacemaker in situ Paroxysmal atrial fibrillation (CMS/HCC) Sick sinus syndrome (CMS/HCC) CA REM INTERROG PM/LDLS PM <90 D PHYS/QHP Routine 09/01/2024 11:22 PM CDT Cardiac pacemaker in situ Paroxysmal atrial fibrillation (CMS/HCC) Sick sinus syndrome (CMS/HCC) CA ECG ROUTINE ECG W/LEAST 12 LDS W/I&R Routine 08/05/2024 1:45 PM CDT Encounter for monitoring sotalol therapy from Last 3 Months Results * CA REM INTERROG PM/LDLS PM <90 D PHYS/QHP, CA REM INTERROG PM/LDLS PM/IDS <90 D TECH REVIEW (09/01/2024 11:22 PM CDT) 09/01/2024 11:2 2 PM CDT us Dilan Kitchen MD CARDIAC SERVICES ORDERABLES Melo fidel Result - Final INTERFACE SYSTEM Refer to clinic/hospital department * CA ECG ROUTINE ECG W/LEAST 12 LDS W/I&R (08/05/2024 1:45 PM CDT) Narrative [facility] [address] - 08/05/2024 1:45 PM CDT Perico Caldera MD 08/05/2024 5:06 PM EKG Date/Time: 08/05/2024 1:45 PM Performed by: Perico Caldera MD Authorized by: Perico Caldera MD Comments: Electronic atrial paced rhythm 91 bpm low voltage QRS cannot rule out anterolateral infarction, abnormal ECG, manually measured QT C4 40 ms QRS 96 ms. Procedure Note Perico Caldera MD - 08/05/2024 1:58 PM CDT Images from the original note were not included. [facility] Cardiology Outpatient Progress Note Date of Service: 08/05/24 Primary Care Physician: Dilan Metzger MD Referring Physician: No ref. provider found Chief Complaint Patient presents with Congestive Heart Failure 6mth f/u- no cardiac sx. Was in the ED in [facility] for low K. History of Present Illness: Patient is a pleasant 74 y.o. female with a PMHx significant for chronicHf[EF, CAD 10/08/2005 3.5 x 24 mm Taxus KAL to RCA, 11/28/2005 2.0 x 28 mmmini vision DMS to COAL WEIGHER of ramus intermedius branch, 12/14/2009 bloodangioplasty to in-stent restenosis of ramus, mild cardiomyopathy,hypertensive heart disease and diastolic heart fair, morbid obesity,paroxysmal atrial fibrillation on systemic anticoagulation, sick sinussyndrome status post pacemaker November 01, 2010 implant Medtronicdual-chamber, obstructive sleep apnea on CPAP. OLD RECORDS CareEveryWhere: 08/17/14 Went to ED over weekend for palpitations and Af. Fib for which shereceived Dilt and controlled HR nicely and was discharged home to f/u asoutpatient. GI effects with PRadaxa and can't stand it ... Given aninhaler to use twice daily and is helping NO CP but mild SOB and neckfullness when in A. Fib HR 120' at presentation. Converted to SR prior todischarge from ED. Has noted more fluid retention. But taking Lasix 80mgam and 40mg pm. States is interested in taking Eliquis as it is a smallertablet. No bleeding problems. Otherwise feels fairly well. 01/30/15 Wears O2 with activity, NO CP or palps, bleeding falls. +MILLER.+CPAP. Wants 90 day prescriptions. +edema, not exercising. MILLER keeps fromexercise, +wheezing. Doing much better on Lasix 120 mg daily. 08/01/15 Feeling ok +MILLER unchanged. No CP, oumar meds otherwise. No palps orfalls or bleeding. Taking a new inhaler Incruse. EDema persistentunchanged. Not all that active, not engaging in exercise. Wearing CPAP,tolerating without difficulty. No syncope. 01/19/16 Feeling well, 2 episodes of palps <30 min lat month or so. No medchanges and oumar well. No bleeding. MILLER persists, no progression no CP,not exercisign. No dizziness, falls. +edema more prominent thinks relatedto heat/humidity, weight up, watching salt in diet. Taking Metolazone1-2x/week decides to take based upon how she feels not necessarily usingweight as a guide. Patient admits she is sedentary, drinks almostexclusively diet Pepsi, canned vegetables. 05/23/16 c/o palps 3 weeks ago intermittently now much better rarelyoccurring. No CP or sig SOB, +edema saw Renal changed to torsemide,restarted Kcl. No near syncope or syncope or dizziness. No bleeding.Norvasc stopped, trying to lose weight. 01/08/17 c/o worsening MILLER past month especially but later states may bepast few months. Increased Lasix to 160mg daily past 2 days after (Renal) changed to Torsemide 20mg BID but noted no improvement aftertaking for 3 months. Notes very wheezy, significant MILLER with minimalactivity, increased weight and orthopnea. Using CPAP but had to take offrecently due to gasping for air. Seeing Pulmonology using nebulizer orinhaler which does help. PPM check in office. Couple CP spells lasting nomore than 2 minutes like sharp pain atypical different than cardiacangina. NO falls or bleeding. 06/04/17 Notes more significant palps lasting several hours sometimesovernight maybe 4 times since April. No falls, dizziness, CP. Breathingok, compliant with CPAP. Tolerating medications. 10/27/17 Admitted to [facility] with COPD exacerbation,pneumonia, and ?CHF 2-3 months ago. Now feeling well. Had home healthnurse for a while and had O2 all day for a while now just at night (4L)and sporadically during the day based upon sxs and exertional O2 sat dropsinto the 70's then recovers. Sounds like needs O2 with any activity. NOfalls, bleeding, CP. Still with edema and weight gain. STates taking [id number] only once daily and KCl 20MEQ po every other day. 09/17/19 Feeling well, same underlying COPD and MILLER. No diuretic for 3Days so more edema. Had been in hospital for pneumonia 2 years ago but noEKG recently. No bleeding, falls, dizziness, palps, CP. oumar meds. Whentakes LAsix consistently she feels pretty good. Compliant with CPAP and O2at night. She had not followed up as advised or EKG's and she knows thisis important. No near-syncope or syncope. She has been consistent withremote pacer checks. 01/09/21 On Fri woke her from sleephad CP L chest all the way down similarto prior angina/AL lasted 4 min total then stopped spontaneously. +SOB dueto intense pressure. No recurrence feels fine otherwise, notes more palpsirregular heart beat. No exertional CP notes MILLER related to COPD. Spokewith PCP neg Trop I sent 6 LDL 148 01/05/21. Given SLNTG by PCP has notused. Difficult year with loss of her suddenly accompanied bydaughter. Still on sotalol. 02/06/21 Doing ok at her baseline same unchanged chronic SOB, no CP no newissues or complaints had stress test. She is still SOB even diuretics shenotes otherwise doing ok. Bumex 2mg once daily. She feels her weight isincreased although edema stable. She feels reasonably well overall. Nopalpitations, bleeding. No falls. Tolerating medications otherwise. Shehad her stress testing was enquiring about the results. She expressedfear over obtaining her COVID vaccination and wanted myopinion/recommendation in this regard. 07/03/21 Taking Bumex 2mg daily on occ twice daily. Having more LE edema.She is watching her salt she says. More SOB she states past couple ofmonths. Went to [place] in April 2021 woke up in middle of nightburning CP SLNTG resolved but kept returning so admitted no infarct butwas +COVID went into AFib given IV meds to control. She felt very weak butotherwise did ok. No falls, no recurrent CP. 05/08/22 Feeling ok but past 6 months much more frequent palps, elevated HRup to the 90's even to 120's lying down at least 2x/week. Amlodipinestopped in favor of Lisinopril. She is taking Sotalol 80mg BID althoughpharmacy indicates no fill since September but she is taking she is adamant.Also on Eliquis, BUmex 2mg daily 07/29/22 feeling ok seeing Pulm has mild COPD in PFT recently, no CP. Palpsimproved since last visit but palps racing this AM. Still has edema variesworse end of day sometime really good.weight stable. She reports insomniagiven trazodone wanted to talk to me about it. 10/01/22 Breathing ok, stable relates to COPD, no CP, bleeding. Still hasocc palps heart pounding wakes up from sleep. PPM check today in office.Had labs last week. Doing ok overall. Denies edema, falls. Toleratingsotalol 80 mg twice daily and Eliquis 5 mg twice daily. 12/03/22 discharged from 10/2022 with CP [facility] done stable mild dz no PCI.Was coughing sputum now resolved. HR variable she notes. Remains on ASAand Elquis, no bleeding. On Bumex 2mg daily. On Sotalol 80mg BID. Startedon Trulicity feels tired, lightheaded on it, had constipation issues onOzempic. No CP but notes occ palps. In fact, she states she felt worseafter discharge was given doxycycline and prednisone for URI symptomsresolved now she feels well. Pt is now being seen in very kind consultation request by Dilan Metzger MD for my opinion regarding CAD, pacemaker, CHF, atrialfibrillation. Initial visit 10/31/23: Recently admitted to [facility] with shortness of breath inApril with diagnosis of CHF exacerbation sent home on Bumex 3 mg dailyedema persists. SOB but heat/humidity is a drain. Feeling tired like sheis melting. She says also worked up for her COPD, did Echo and EKG.Religiously wearing CPAP with O2 bleed in , daytime O2 PRN but her COPDhas progressed and limits her especially in this heat. She also statesshjolie is interested in gastric bypass surgery options for weight loss. 02/05/24 visit: Feeling well no new issues. She states when his bumps in roads feels pacing or tracking in chest like pace testing in the office that is sortof annoying but resolves as soon as the road smooths out. This has beenhappening for years she states no changes. No other CP or SOB, unchangedocc palps. She says she was in ER for SOB given IV Lasix kept overnightsent home next day, stayed in ER added Fe. Weight down from prior visit athome 296lb did not take diuretic today. Taking Metolazone 2x week andBumex 3mg daily. 08/05/24: In [place] July 03 took CUCO boswell from her daughter to help her sleephad psychedelic trip, colors and was horrible and she thought she wasgoing to . EMS called went to ER K+ very low she reports and she admitsshe was not taking her KCL as prescribed daily only MWF but she is nowcompliant everything else was fine. Then sent home all was well withrepletion of K+. She also had flu A she states. She has lost a significantamount of weight nearly 30lbs. No issues now feeling well. Taking all medsas prescribed. Past Medical History: Past Medical History: Diagnosis Date A-fib ([facility]) Coronary artery disease Myocardial infarction ([facility]) Allergies: Allergies Allergen Reactions Adhesive Rash Adhesive Tape-Silicones Rash Current Medications: Current Outpatient Medications on File Prior to Visit Medication Sig Dispense Refill ferrous sulfate 325 mg (65 mg iron) tablet Take 325 mg by mouth daily. nitroglycerin (NITROSTAT) 0.4 mg Tablet, Sublingual Place 1 Tablet (0.4mg) under tongue every 5 minutes as needed for Chest Pain. 25 Tablet 1 acetaminophen-codeine (TYLENOL #3) 300-30 mg tablet TAKE 1 TABLET BYMOUTH EVERY 6-8 HOURS NEEDED FOR PAIN albuterol (PROVENTIL,VENTOLIN) 2.5 mg /3 mL (0.083 %) Solution forNebulization 3 ml every 4 to 6 hours amLODIPine (NORVASC) 2.5 mg tablet Take 2.5 mg by mouth daily. Eliquis 5 mg tablet Take 1 Tablet by mouth 2 times daily. benzonatate (TESSALON) 100 mg capsule TAKE 1 CAPSULE BY MOUTH EVERY 8HOURS NEEDED FOR COUGH AND CONGESTION clobetasoL (TEMOVATE) 0.05 % Cream APPLY 1 APPLICATION ONTO THE RASH ONBOTH LEGS TWICE DAILY X14 DAYS levothyroxine 200 mcg tablet TAKE 1 TABLET BY MOUTH EVERY MORNING [id number] FOR A TOTAL DOSE OF 275MCG DAILY levothyroxine 75 mcg tablet Take 1 Tablet by mouth daily in the morning. losartan (COZAAR) 50 mg tablet Take 1 Tablet by mouth daily. rosuvastatin (CRESTOR) 20 mg tablet Take 1 Tablet by mouth daily. sotaloL (BETAPACE) 80 mg tablet TAKE 1 TABLET BY MOUTH 2 TIMES A DAY. traZODone (DESYREL) 50 mg tablet TAKE 1 TABLET BY MOUTH AT BEDTIME, MAYINCREASE TO 2 TABLETS AT BEDTIME IF NEEDED. umeclidinium-vilanteroL (ANORO ELLIPTA) 62.5-25 mcg/actuation Disk withDevice TAKE 1 PUFF BY MOUTH EVERY DAY venlafaxine (EFFEXOR XR) 150 mg Extended Release 24 hour capsule Take 1Capsule by mouth daily in the morning. bumetanide (BUMEX) 2 mg tablet Take 1.5 Tablets (3 mg) by mouth daily.135 Tablet 3 potassium chloride (Klor-Con M20) 20 mEq Extended Release tablet Take 1Tablet (20 mEq) by mouth 2 times daily. (Patient taking differently: Take20 mEq by mouth 2 times daily. Take one extra potassium on metolazonedays.) 180 Tablet 3 metOLazone (ZAROXOLYN) 5 mg tablet Take 1 Tablet (5 mg) by mouth twiceweekly. 24 Tablet 3 aspirin (ECOTRIN EC) 81 mg Tablet, Delayed Release (E.C.) Take 1 Tablet(81 mg) by mouth daily. 30 Tablet 0 No current facility-administered medications on file prior to visit. Review of Systems: Review of Systems Constitutional: Positive for fatigue. Negative for diaphoresis. Respiratory: Positive for shortness of breath. Negative for chesttightness. Cardiovascular: Positive for leg swelling. Negative for chest pain andpalpitations. Gastrointestinal: Negative for blood in stool. Musculoskeletal: Negative for myalgias. Neurological: Negative for dizziness and light-headedness. All other systems reviewed and are negative. Physical Examination: BP 120/64 (BP Location: Left arm, Patient Position (BP): Sitting, BP CuffSize: Large Adult) Pulse 95 Ht 5' 3 (1.6 m) Wt 123.4 kg (272 lb) SpO2 95% BMI 48.18 kg/m Physical Exam Vitals reviewed. Constitutional: General: She is not in acute distress. Appearance: Normal appearance. She is obese. HENT: Head: Normocephalic and atraumatic. Mouth/Throat: Mouth: Mucous membranes are moist. Eyes: Extraocular Movements: Extraocular movements intact. Conjunctiva/sclera: Conjunctivae normal. Cardiovascular: Rate and Rhythm: Normal rate and regular rhythm. Pulses: Carotid pulses are 2+ on the right side and 2+ on the left side. Radial pulses are 2+ on the right side and 2+ on the left side. Heart sounds: S1 normal and S2 normal. Pulmonary: Effort: Pulmonary effort is normal. Breath sounds: Normal breath sounds. Abdominal: General: Abdomen is flat. Palpations: Abdomen is soft. Musculoskeletal: Cervical back: Normal range of motion. Right lower leg: Edema present. Left lower leg: Edema present. Comments: 1+ bilateral LE edema Subcut pacemaker Skin: General: Skin is warm and dry. Coloration: Skin is not jaundiced. Neurological: General: No focal deficit present. Mental Status: She is alert and oriented to person, place, and time.Mental status is at baseline. Psychiatric: Mood and Affect: Mood normal. Behavior: Behavior normal. Thought Content: Thought content normal. Judgment: Judgment normal. Laboratory/Testing Data: Care[facility]where outside [facility] records: 10/27/22 2D Echo: Conclusions: Normal left ventricular systolic function with no focal wall motionabnormalities. Normal left ventricular size. Mild concentric left ventricular hypertrophy.Ejection fraction is visually estimated at 65 %. There is mild enlargement of left atrium. Small pericardial effusion. Limited echo study . no doppler. 10/26/22 EXAMINATION: XR CHEST 1 VIEW HISTORY: The patient is a 72-year-old female who presents with shortness of breath. Comparison is made with the previous study dated 09/06/2007. FINDINGS: Cardiomegaly with aortic atherosclerosis. Mild degree of vascular congestion. No focal infiltrate. 10/28/22 [facility]: PREPROCEDURE DIAGNOSES: This 72-year-old female with history of morbid obesity, RCA stent 2005presents the hospital with chest pain she was brought into label remover todefine coronary anatomy PROCEDURES PERFORMED: Moderate sedation that started at 1:48 p.m. and ended at 2:33 p.m. withtotal duration using mg of Versed and mcg of fentanyl. The registerednurse was regine torres. Selective left and right coronary angiogram. FINDINGS: Left main coronary artery is a large artery that divides into large LAD,large left circumflex artery. Left main has 10%. Left anterior descending artery is a large artery that runs a wraps aroundthe apex. Proximally there is a lesion about 40%. After that diagonalbranch D2 is large minimal irregularities and rest of the LAD with minimalirregularities. Left circumflex artery is a large artery and codominant has ostial 20%.Gives rise proximally to a medium-size OM 1 that has ostial 20-30%.Distally there is a area about 40-50% but the caliber appears to be small.Left PDA with minimal irregularities. Right coronary artery large artery and codominant with minimalirregularities proximally and then distally there is a patent stent. CONCLUSIONS Proximal LAD 40%. Distal OM1 40%. Patent stent distal RCA. Medtronic Tanika Dual Pacemaker Dx; SSS, PAF. Gen change 07/16/2021-Uppstrom, chronic leads 11/01/2010 [employer] remote home monitoring Q3 months, Office pacer checks Q1 year. Routine AAIR<>DDDR Pacemaker Remote. Transmission attached. Battery status: 3.00 V , 8.8 years remaining battery life to HAO. Stable lead impedances, pacing and sensing thresholds. Presenting rhythm: AP/VS AP- 89.3%, SURGERY NURSE- 4.0%, 50 AT/AF episodes noted, longest episode was 26 hours in duration, IEGM demonstrates Afib/A-flutter. AF Lowman 5.9. No Ventricular high rate episodes detected. Medications: Eliquis, ASA 81mg, sotalol See scanned report. Office pacemaker follow up: 11/05/23 [employer] remote f/u 02/25. 11/11/23 PPM check: EKG Date/Time: 08/05/2024 1:45 PM Performed by: Perico Caldera MD Authorized by: Perico Caldera MD Comments: Electronic atrialpaced rhythm 91 bpm low voltage QRS cannot rule out anterolateralinfarction, abnormal ECG, manually measured QT C4 40 ms QRS 96 ms. I have personally reviewed and analyzed electronic medical record,pertinent imaging, laboratory studies, ECG, and available consultationnotes. Impression: ICD-10-CM ICD-9-CM 1. Chronic heart failure with preserved ejection fraction (CMS/HCC)I50.32 428.9 2. 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 Paroxysmal atrial fibrillation (CMS/HCC) I48.0 427.31 4. Benign hypertension I10 401.1 5. Encounter for monitoring sotalol therapy Z51.81 V58.83 Z79.899 V58.69 6. Hypokalemia E87.6 276.8 7. Presence of cardiac pacemaker Z95.0 V45.01 8. Sick sinus syndrome (CMS/HCC) I49.5 427.81 9. History of AL (myocardial infarction) I25.2 412 10. Chronic anticoagulation Z79.01 V58.61 Assessment/Plan of Care: 1. Compensated HFpEF, NYHA class III sxs confounded by COPD. Continuecurrent diuretic regimen. CHF counseling performed. Follow daily weight,less than 2 g daily sodium intake, medication compliance. Call w/ wt gain>3lb in 24 hrs or worsening edema and/or MILLER. -Continue Bumex 3 mg daily. Continue KCl 20MEQ daily may need to inc toBID. -Metolazone 5mg 30-60 min prior to AM Bumex twice weekly at first checkBMP and Mg. Call next week with weight, symptom response withrecommendations to follow. -may take additional Metolazone if weight gain, CHF sxs but call office toupdate. She agrees. -She is losing weight and encouraged to continue on path. Weight [id number] LB. 2. No anginal symptoms. Aggressive CAD risk modification counselingperformed. Continue current medical therapy. Notify office immediatelywith anginal symptoms. -[facility] 10/28/2022 [id number] disease patent stent no PCI. -continue aspirin 81 mg daily. Monitor bleeding with concomitant Eliquis5 mg twice daily. 3. BP reasonably controlled goal <130/80mmHg. Monitor BP on routine basis.Call with readings. Continue consistent cardiovascular exercise, weightloss, medication compliance, and low-sodium diet. -continue amlodipine 2.5 mg daily, losartan 50 mg daily, bumetanide 3 mgdaily. If elevated at home may need to inc Losartan to 100mg daily. Callwith readings. 4. Lifestyle modification counseling performed. Continue consistent weightloss, exercise, reduction in caloric intake. On Trulicity and previouslyOzempic for weight loss not DM. 5. Compliance with meds, CPAP for tx of SOFI with O2 bleed-in, Pulmonologyfollowup for COPD. She remains on Anoro Ellipta. 6. Stable, historically paroxysmal AFib by EKG symptomatic withpalpitations. Continue current medical therapy and systemicanticoagulation for stroke risk reduction. CHADS2 Vasc score 5. If significant falls, bleeding and or head injury go to ER immediately. -Eliquis 5mg BID. Monitor for bleeding. Continue sotalol 80 mg twicedaily. Monitor ECG for QT interval and sotalol toxicity. QT stable byECG today manually measured approximately 440 ms. -Counseled on the risks associate with hyper and/or hypokalemia onsotalol and in general given her cardiac history. She must remaincompliant with medication including potassium supplementation. She statesshe has been been compliant since recent ER visit due to hypokalemia as aresult of noncompliance. She states she has learned her lesson in thisregard and will not do that again. Will recheck BMP to ensure stabilityin this regard. Recommendation to follow after review. 7. Lipids personally reviewed 03/23/2024 LDL 73, marginally controlledgoal LDL<70. Continue statin therapy and lifestyle modification. GoalLDL<70. Continue Rosuvastatin 20 mg bedtime. Recommendation tofollow. 9. Pacemaker check 05/30/2024 AFib paroxysmal, 0.1% burden otherwise normalfunction Medtronic dual-chamber AP 94.9 SURGERY NURSE 0.8%the patient has previouslyreported she is symptomatic with her AFib as well as with RV pacing.Continue sotalol without change at this time. -AF decreased of late, well-controlled. Follow up in the office in [place] in about 6 months (around 02/04/2025). orsooner as needed. Thank you for allowing me the privilege of participating in the care thisvery pleasant patient. Please do not hesitate to contact me with anyadditional questions or concerns. This note is dictated and transcribed using [employer] Fluency [employer]. Senior Web Architect variances may occur. Despite proofreading,typographical errors may occur. Perico Caldera MD us Perico Caldera MD ECG ORDERABLES Final Re sult [facility] [address] [place]# [id number] [place] [address] [place] [id number] from Last 3 Months Insurance MEDICAID [place] Care Teams Industrial [employer] Polisher Relationship Specialty [place] [id number] [facility] [address] [place] [address] PCP - General Family Practice 02/05/24
--- OUTSIDE RECORDS SUMMARY | 2024-09-02 15:32 | XMS_ITS | Clinical Summary ---
Author Organization [facility] Address [address] [place] [address] Care Team Providers Care Dredge Captain Name Role Phone Dilan Metzger MD Primary Care Provider [phone] Source Comments [facility],non-owned Affiliates and Associated Physician Practices is amultiple site organization consisting of ambulatory clinics and hospital sitesin [place], [place], [place] and [place]. This disclosure is being madepursuant to the Care Everywhere program and may not contain all informatio navailable regarding this patient. Last updated 18.[facility] Allergies Active Allergy Reactions Criticality Noted Date Comments Adhesive Sensitivity Rash Medium 01/09/2021 Medications * Be aware that medications may not be up to date on this document. Alwaysverify current medications with the patient. aspirin 81 MG tablet Take 81 mg by mouth once daily. Active Cyanocobalami n (B-12 PO) Take 2 Tabs by mouth once daily. Active IRON PO Take 2 Tabs by mouth once daily. Active rosuvastatin (CRESTOR) 20 MG tablet Take 1 Tab by mouth once daily. 90 Tab 1 01/08/20 13 Active sotalol (BETAPACE) 80 MG tablet Take 1 Tab by mouth 2 times daily. 180 Tab 1 01/08/20 13 Active amLODIPine (NORVASC) 5 MG tablet Take 1 Tab by mouth once daily. 90 Tab 1 01/08/20 13 Active Acetaminophen -Codeine (TYLENOL/CODE INE #3) 300-30 MG TABSIndicatio ns:Right leg pain,Left arm pain Take 1-2 Tabs by mouth every 6 hours. 20 Tab 0 02/10/20 13 Active levothyroxine (SYNTHROID) 200 MCG tablet TAKE 1 TABLET BY MOUTH EVERY DAY BEFORE BREAKFAST 90 Tab 1 06/30/19 14 Active Additional Information Patient taking differently: 200 mcg Oral DAILY BEFORE BREAKFAST, Reason: Provider adjusted, Reported on 08/08/2024 bumetanide (Bumex) 2 MG tablet Take 1.5 (one and one-half) tablets by mouth once daily Active Eliquis 5 MG tablet Take 1 (one) tablet by mouth 2 times daily 05/25/19 25 Active venlafaxine XR 24hr (Effexor XR) 150 MG capsule Take 1 (one) capsule by mouth daily with breakfast Active levothyroxine (SYNTHROID) 50 MCG tablet Take 1 Tab by mouth daily before breakfast. 90 Tab 1 01/08/20 13 025 Discontinued(Li st Clean-Up) clopidogrel (PLAVIX) 75 MG tablet Take 1 Tab by mouth once daily. 90 Tab 1 01/08/20 13 025 Discontinued(Li st Clean-Up) furosemide (LASIX) 80 MG tablet Take 1 Tab by mouth once daily. 90 Tab 1 01/08/20 13 025 Discontinued(Li st Clean-Up) sertraline (ZOLOFT) 100 MG tablet Take 1 Tab by mouth 2 times daily after meals. 180 Tab 1 01/08/20 13 025 Discontinued buPROPion SR 12hr (WELLBUTRIN-S R) 150 MG tablet Take 1 Tab by mouth 2 times daily. 180 Tab 1 01/08/20 13 025 Discontinued warfarin (COUMADIN) 5 MG tablet Take 5-7.5 mg by mouth every evening. 5mg on MWF and 7.5mg all other days per coumadin clinic 025 Discontinued(Li st Clean-Up) aspirin EC (ECOTRIN) 81 MG tablet TAKE 1 TABLET BY MOUTH DAILY. 30 Tab 1 07/01/19 14 025 Discontinued(Li st Clean-Up) Active Problems Problem Noted Date Diagnosed Date Cerebrovascular accident (CV A) due to embolism of cerebral artery 08/08/2024 Right facial numbness 08/06/2024 TIA (transient ischemic attack) 08/06/2024 SOFI (obstructive sleep apnea) 04/19/2013 Venous insufficiency 02/09/2013 HTN (hypertension) 01/07/2013 Hyperlipidemia 01/07/2013 Depression 01/07/2013 Hypothyroidism 01/07/2013 History of OH (myocardial infarction) 01/07/2013 Encounters Date Type Department Care Team Description 08/06/2024 4:27 PM CDT - 08/08/2024 8:10 PM CDT Hospital Encounter [facility] 5N ACUTE [address] [place] [address] Vinny Rock DO Scott, Jordan K, MD Neurology Discharge Disposition: Home or Self Care 08/06/2024 Travel from Last 3 Months Immunizations Immunization Administration Dates Next Due FLU VACCINE TRI IIV3 SPLIT PF IM (FLUVIRIN) 12/2012 Family History * Patient is adopted Medical History Relation Name Comments Cancer - Other Daughter Hodgkins Lymp eloina Diabetes Mother Kidney Disease Sister Relation Name Status Comments Daughter Alive Mother biological Sister Alive biological Social History Tobacco Use Types Packs/Day Years Used Date Smoking Tobacco: Former Cigarettes 1.5 30 0 05/05/1966 - 05/05/1996 Smokeless Tobacco: Never Alcohol Use Standard Drinks/Week Comments Yes 0 (1 standard drink = 0.6 oz pur e alcohol) rarely PHQ-2 Answer Date Recorded Patient Health Questionnaire-2 Score 0 08/08/2024 Comments No Sex and Gender Information Value Date Recorded Sex Assigned at Not on file Legal Sex Female 2:10 PM CDT Gender Identity Not on file Sexual Orientation Not on file Occupation Industry Job Start Date Job End Date Disabled Not on file Not on file Not on file Last Filed Vital Signs Vital Sign Reading Time Taken Comments Blood Pressure 109/98 08/08/2024 7:23 PM CDT Pulse 82 08/08/2024 7:23 PM CDT Temperature 36.9 C (98.5 F) 08/08/2024 7:23 PM CDT Respiratory Rate 18 08/08/2024 7:23 PM CDT Oxygen Saturation 96% 08/08/2024 7:23 PM CDT Inhaled Oxygen Concentration - - Weight 126.5 kg (278 lb 12.8 oz) 2024 10:00 PM CDT Height 160 cm (5' 3 ) 08/06/2024 10:00 PM CDT Body Mass Index 49.39 08/06/2024 10:00 PM CDT Plan of Treatment Health Maintenance Due Date Last Done Comments BONE DENSITY TESTING [address] COLONOGRAPHY - COLON CA SCREENING 1950 FIT - COLON CA SCREENING 1950 FLEX SIG - COLON CA SCREENING 1950 MEDICARE AWV 12 MONTHS 1951 HEPATITIS C SCREENING 01/07/1969 DTAP/TDAP/TD VACCINES (1 - Tdap) 1970 PNEUMOCOCCAL VACCINE 50+ (1 of 1 - PCV) 2001 ZOSTER VACCINE (1 of 2) 2001 Respiratory Syncytial Virus (RSV) Vaccine Pt: or over 60 yrs (1 - Risk 60-74 years 1-dose series) 2011 COLONOSCOPY - COLON CA SCREENING 05/05/2018 05/05/2008 (Previously completed) COVID-19 VACCINE (2023- season) 2024 MAMMOGRAM 03/04/2025 03/04/2023, 08/04, 04/06/2019 COLOGUARD (AGES 45-75) - COLON CA SCREENING 05/20/2025 05/20/2022 Colorectal Cancer Screening 05/20/2025 INFLUENZA VACCINE Completed 07/05/2024, , 03/11/2019, Additional history exists DEPRESSION SCREENING Completed 08/06/2024 HEPATITIS B VACCINE Aged Out No longe r eligible based on patient's age to complete this topic HIB VACCINE Aged Out No longer eligi ble based on patient's age to complete this topic HPV VACCINE Aged Out No longer eligi ble based on patient's age to complete this topic MENINGOCOCCAL (Group B) VACCINE SHARED DECISION-MAKING Aged Out No longer eligible based on patient's age to complete this topic MENINGOCOCCAL GROUPS A/C/Y/W VACCINE Aged Out No longer eligible based on patient's age to complete this topic Procedures Procedure Name Priority Date/Time Associated Diagnosis Comments CARDIAC EKG ORDER 08/09/2024 2:2 9 PM CDT GLUCOSE - POINT OF CARE Routine 08/08/2024 4:40 PM CDT MAGNESIUM BLOOD Routine 08/08/2024 3:39 PM CDT PHOSPHORUS BLOOD Routine 08/08/2024 3:39 PM CDT MRI BRAIN WO CONTRAST STAT 08/08/2024 3:25 PM CDT Speech disturbance, unspecified type Right facial numbness TIA (transient ischemic attack) GLUCOSE - POINT OF CARE Routine 08/08/2024 11:27 AM CDT GLUCOSE - POINT OF CARE Routine 08/08/2024 8:15 AM CDT CBC W/O DIFFERENTIAL Routine 08/08/2024 2:16 AM CDT BASIC METABOLIC PANEL (CALCIUM TOTAL) Routine 08/08/2024 2:16 AM CDT GLUCOSE - POINT OF CARE Routine 08/07/2024 8:55 PM CDT GLUCOSE - POINT OF CARE Routine 08/07/2024 4:07 PM CDT GLUCOSE - POINT OF CARE Routine 08/07/2024 12:34 PM CDT PT EVAL AND TREAT Routine 08/07/2024 10: 02 AM CDT OT EVAL AND TREAT Routine 08/07/2024 10: 02 AM CDT GLUCOSE - POINT OF CARE Routine 08/07/2024 7:38 AM CDT BLOOD TYPE VERIFICATION Routine 08/07/2024 1:30 AM CDT LIPID PROFILE Routine 08/07/2024 1:30 AM CDT CBC W/O DIFFERENTIAL Routine 08/07/2024 1:30 AM CDT BASIC METABOLIC PANEL (CALCIUM TOTAL) Routine 08/07/2024 1:30 AM CDT HEMOGLOBIN A1C Add on 08/07/2024 1:30 AM CDT GLUCOSE - POINT OF CARE Routine 08/06/2024 9:28 PM CDT TYPE + SCREEN PANEL STAT 08/06/2024 9 :14 PM CDT TROPONIN-I HIGH SENSITIVE REFLEX 1HOUR Timed 08/06/2024 9:14 PM CDT TROPONIN-I HIGH SENSITIVE BASELINE + 1HR STAT 08/06/2024 5:53 PM CDT TROPONIN-I HIGH SENSITIVE STAT 08/06/2024 5:53 PM CDT PT-INR SLH STAT 08/06/2024 5:53 PM CDT COMPREHENSIVE METABOLIC PANEL STAT 08/06/2024 5:53 PM CDT CBC W AUTO DIFFERENTIAL STAT 08/06/2024 5:[address] ANGIO BRAIN NECK STROKE STAT 08/06/2024 5:03 PM CDT Speech disturbance, unspecified type CT BRAIN STROKE STAT 08/06/2024 5:03 PM CDT Speech disturbance, unspecified type PT EVAL AND TREAT Routine 08/06/2024 5:0 0 PM CDT OT EVAL AND TREAT Routine 08/06/2024 5:0 0 PM CDT INR WHOLE BLOOD - POINT OF CARE (IP) STROKE Routine 08/06/2024 4:52 PM CDT CREATININE - POCT INTERFACED Routine 08/06/2024 4:49 PM CDT from Last 3 Months Results * CARDIAC EKG ORDER (08/09/2024 2:29 PM CDT) Narrative 08/09/2024 2:29 PM CDT Ordered by an unspecified provider. us Scanned Document CARDIAC SERVICES ORDERABLES Fin al Result * GLUCOSE - POINT OF CARE (08/08/2024 4:40 PM CDT) Only the most recent of8 resultswithin the time period is included. Glucose WB/POC 87 70 - 99 mg/dL 08/08/2024 5:39 PM CDT [facility] Specimen Type Cap Fingerstick 2024 5:39 PM CDT [facility] Blood BLOOD SPECIMEN / Unknown 08/08/2024 4:40 PM CDT 08/08/2024 5:39 PM CDT us Vega Quintero MD LAB - POINT OF CARE ORDERABLES Final Result [address] [address], [place] [phone] * (ABNORMAL) PHOSPHORUS BLOOD (08/08/2024 3:39 PM CDT) Phosphorus 2.3(L) 2.9 - 5.1 mg/dL 08/08/2024 4:13 PM CDT [facility] Blood BLOOD SPECIMEN / Unknown Lab Venipuncture / Unknown 08/08/2024 3:39 PM CDT 08/08/2024 3:44 PM CDT us Vega Quintero MD LAB - CHEMISTRY ORDERABLES Fin al Result Performing Organization Address City/[facility]/ZIP Co de Phone Number [address] [address], [place] [phone] * MAGNESIUM BLOOD (08/08/2024 3:39 PM CDT) Magnesium 1.8 1.6 - 2.6 mg/dL 08/08/2024 4:13 PM CDT [facility] Blood BLOOD SPECIMEN / Unknown Lab Venipuncture / Unknown 08/08/2024 3:39 PM CDT 08/08/2024 3:44 PM CDT us Vega Quintero MD LAB - CHEMISTRY ORDERABLES Fin al Result [address] [address] [phone] * MRI BRAIN WO CONTRAST (08/08/2024 3:25 PM CDT) Anatomical Region Laterality Modality Head Magnetic Resonan ce 08/08/2024 5:47 PM CDT Impressions 08/08/2024 5:57 PM CDT IMPRESSION: 3 punctate foci of restricted diffusion in the left centrum semiovale suggesting acute infarcts. Moderate burden of chronic ischemic small vessel disease noted. > Interpreting Provider: Gaviota Saini MD on 08/08/2024 5:57 PM Narrative 08/08/2024 5:57 PM CDT PROCEDURE: MRI BRAIN WO CONTRAST, DATE/TIME OF EXAM: 08/08/2024 3:25 PM, LOCATION [facility] INDICATION: R47.9: Speech disturbance, unspecified type R20.0: Right facial numbness G45.9: TIA (transient ischemic attack) ADDITIONAL CLINICAL INFORMATION: Ordering Provider Reason For Exam: cva Technologist Note: Additional: COMPARISON: CT head, angiogram 08/06/2024 TECHNIQUE: MRI of the brain was performed without contrast, according to standard protocol FINDINGS: No evidence of acute intracranial hemorrhage. Chronic microhemorrhage noted along the right anterior frontal lobe (image 48, series 6). 3 foci of restricted diffusion in the left centrum semiovale suggesting acute infarcts. Otherwise no evidence of acute infarction. Mild generalized parenchymal volume loss. The ventricles are of normal size, shape, and morphology. No mass effect or midline shift is seen. Moderate burden of periventricular and subcortical white matter FLAIR hyperintensities likely represent sequelae of chronic small vessel ischemic disease. Chronic infarct noted along the right frontal lobe/right centrum semiovale. The corpus callosum and sella appear normal. The posterior fossa, brainstem, and craniocervical junction appear normal. The visualized portions of the orbits, paranasal sinuses, and mastoids appear normal. Normal flow voids are demonstrated in the carotid arteries and basilar artery. The calvarium and visualized cervical spine appear normal. Procedure Note Gaviota Saini MD - 08/08/2024 PROCEDURE: MRI BRAIN WO CONTRAST, DATE/TIME OF EXAM: 08/08/2024 3:25 PM, LOCATION [facility] INDICATION: R47.9: Speech disturbance, unspecified type R20.0: Right facial numbness G45.9: TIA (transient ischemic attack) ADDITIONAL CLINICAL INFORMATION: Ordering Provider Reason For Exam: cva Technologist Note: Additional: COMPARISON: CT head, angiogram 08/06/2024 TECHNIQUE: MRI of the brain was performed without contrast, according to standard protocol FINDINGS: No evidence of acute intracranial hemorrhage. Chronic microhemorrhagenoted along the right anterior frontal lobe (image 48, series 6). 3 foci of restricted diffusion in the left centrum semiovale suggesting acute infarcts. Otherwise no evidence of acute infarction. Mildgeneralized parenchymal volume loss. The ventricles are of normal size, shape, and morphology. No mass effect or midline shift is seen. Moderate burden of periventricular and subcortical white matter FLAIR hyperintensitieslikely represent sequelae of chronic small vessel ischemic disease. Chronic infarct noted along the right frontal lobe/right centrum semiovale. The corpus callosum and sella appear normal. The posterior fossa, brainstem, and craniocervical junction appear normal. The visualized portions of the orbits, paranasal sinuses, and mastoids appear normal. Normal flow voids are demonstrated in the carotidarteries and basilar artery. The calvarium and visualized cervical spine appear normal. IMPRESSION: 3 punctate foci of restricted diffusion in the left centrum semiovale suggesting acute infarcts. Moderate burden of chronic ischemic smallvessel disease noted. > Interpreting Provider: Gaviota Saini MD on 08/08/2024 5:57 PM Vinny Rock DO MR ORDERABLES Final Result * (ABNORMAL) CBC W/O DIFFERENTIAL (08/08/2024 2:16 AM CDT) Only the most recent of2 resultswithin the time period is included. [facility] WBC 5.5 4.0 - 10.7 x10E9/L 08/08/2024 3:37 AM CDT [facility] RBC Count 4.24 3.90 - 5.20 x10E12/L 08/08/2024 3:37 AM CDT [facility] Hemoglobin 13.1 11.9 - 15.8 g/dL 08/08/2024 3:37 AM T [facility] Hematocrit 36.8 34.8 - 46.1 % 08/08/2024 3:37 AM [facility] MCV 86.8 80.0 - 98.0 fL 08/08/2024 3:37 AM [facility] MCH 30.9 26.7 - 33.6 pg 08/08/2024 3:37 AM [facility] MCHC 35.6 31.7 - 36.3 g/dL 08/08/2024 3:37 AM [facility] RDW-CV 12.9 11.3 - 14.8 % 08/08/2024 3:37 AM [facility] Platelet Count 108(L) 150 - 420 x10E9/L 08/08/2024 3:37 AM [facility] MPV 10.6 7.8 - 11.4 fL 08/08/2024 3:37 AM [facility] Blood BLOOD SPECIMEN / Unknown Lab Venipuncture / Unknown 08/08/2024 2:16 AM CDT 08/08/2024 3:26 AM CDT us Vinny Rock DO LAB - HEMATOLOGY ORDERABLES Final Result Performing Organization Address City/State/[facility] Co de Phone Number [facility] [address] [place] [address], [facility] [phone] * (ABNORMAL) BASIC METABOLIC PANEL (CALCIUM TOTAL) (08/08/2024 2:16 AM CDT) Only the most recent of2 resultswithin the time period is included. BUN 36(H) 7 - 26 mg/dL 08/08/2024 3:58 AM [facility] Creatinine 1.40(H) 0.56 - 0.96 mg/dL 08/08/2024 3:58 AM [facility] Sodium 141 136 - 145 mmol/L 08/08/2024 3:58 AM [facility] Potassium 3.1(L) 3.5 - 4.5 mmol/L 08/08/2024 3:58 AM [facility] Chloride 101 98 - 107 mmol/L 08/08/2024 3:58 AM [facility] CO2 28 22 - 29 mmol/L 08/08/2024 3:58 AM [facility] Glucose 80 70 - 99 mg/dL 08/08/2024 3:58 AM [facility] Calcium 8.8 8.4 - 10.2 mg/dL 08/08/2024 3:58 AM [facility] Anion Gap 12 6 - 16 08/08/2024 3:58 AM [facility] BUN/Creatinine Ratio 26(H) 7 - 23 08/08/2024 3:58 AM [facility] Osmolality Calculated 299(H) 275 - 295 mOsm/kg 08/08/2024 3:58 AM [facility] eGFR by CKD-EPI 40(L) >=90 mL/min/1.7 3 m2 08/08/2024 3:58 AM [facility] Blood BLOOD SPECIMEN / Unknown Lab Venipuncture / Unknown 08/08/2024 2:16 AM CDT 08/08/2024 3:28 AM CDT Vinny Rock DO LAB - CHEMISTRY ORDERABLES F inal Result [address] [address], [facility] [phone] * BLOOD TYPE VERIFICATION (08/07/2024 1:30 AM CDT) ABO Rh A POS 08/07/2024 3:2 6 AM CDT [facility] Blood Bank BLOOD SPECIMEN / Unknown Lab Venipuncture / Unknown 08/07/2024 1:30 AM CDT 08/07/2024 2:05 AM CDT Carroll Santiago MD LAB - BLOOD BANK ORDERABLES F inal Result [facility] [address] [place] [address], [place] [phone] * HEMOGLOBIN A1C (08/07/2024 1:30 AM CDT) Hemoglobin A1c 5.0 <=5.6 % 08/07/2024 8:25 AM [facility] Estimated Average Glucose 97 mg/dL 08/07/2024 8:25 AM [facility] Comment: HbA1c Interpretation: Normal : < 5.7% Pre-diabetes: 5.7-6.4% Diabetes: Equal to or greater than 6.5% Test results diagnostic of diabetes should be repeated for confirmation. Treatment target values recommended by ADA and other clinical organizations should be used to evaluate metabolic control in patients. Reference: [place] [employer], Standards of Care in Diabetes -2020 In patients 70 years and older consider HbA1c target range of 7.0-7.5% (Reference: Francisco Swift et al. JAMDA. 2012) The Sebia assay for the measurement of HbA1c is a National Glycohemoglobin Standardization Program (NGSP) certified method. Blood BLOOD SPECIMEN / Unknown Lab Venipuncture / Unknown 08/07/2024 1:30 AM CDT 08/07/2024 2:09 AM CDT us Vinny Rock DO LAB - CHEMISTRY ORDERABLES F inal Result [facility] [address] [place] [phone], [facility] [phone] * (ABNORMAL) LIPID PROFILE (08/07/2024 1:30 AM CDT) [facility] Cholesterol Total 147 <200 mg/dL 08/07/2024 2:38 AM [facility] HDL 28(L) >40 mg/dL 08/07/2024 2:38 AM [facility] Comment: ATP III Classification of HDL Cholesterol: <40 mg/dL: Considered a major risk factor. >60 mg/dL: Considered a negative risk factor. LDL Calculated 92 <100 mg/dL 08/07/2024 2:38 AM [facility] Comment: ATP III Classification of LDL Cholesterol: <100 mg/dL: Optimal 100 - 129 mg/dL: Near Optimal/Above Optimal 130 - 159 mg/dL: Borderline High 160 - 189 mg/dL: High >190 mg/dL: Very High Triglycerides 137 <150 mg/dL 08/07/2024 2:38 AM CDT [facility] Comment: ATP III Classification of Triglycerides: <150 mg/dL: Normal 150 - 199 mg/dL: Borderline High 200 - 400 mg/dL: High >500 mg/dL: Very High Blood BLOOD SPECIMEN / Unknown Lab Venipuncture / Unknown 08/07/2024 1:30 AM CDT 08/07/2024 2:23 AM CDT [facility] [employer] DO LAB - CHEMISTRY ORDERABLES F inal Result Performing Organization Address City/[facility]/ZIP Co de Phone Number [address] [address], [facility] [phone] * TROPONIN-I HIGH SENSITIVE REFLEX 1HOUR (08/06/2024 9:14 PM CDT) Troponin I High Sensitive 9 <=14 ng/L 08/06/2024 9:42 PM CDT [facility] Delta Troponin I HS 08/06/2024 9:42 PM CDT [facility] Comment:Delta value intentio boris not calculated. Baseline to 1 hour specimen collection interval exceeded. Blood BLOOD SPECIMEN / Unknown Lab Venipuncture / Unknown 08/06/2024 9:14 PM CDT 08/06/2024 9:17 PM CDT [employer] DO LAB - CHEMISTRY ORDERABLES F inal Result Performing Organization Address City/[facility]/ZIP Co de Phone Number [address] [address], [facility] [phone] * TYPE + SCREEN PANEL (08/06/2024 9:14 PM CDT) Antibody Screen NEG 10:06 PM CDT [facility] ABO Rh A POS 08/06/2024 10:06 PM CDT [facility] Blood Bank BLOOD SPECIMEN / Unknown Lab Venipuncture / Unknown 08/06/2024 9:14 PM CDT 08/06/2024 9:18 PM CDT Carroll Santiago MD LAB - BLOOD BANK ORDERABLES F inal Result [facility] [address] [place] [address], [facility] [phone] * TROPONIN-I HIGH SENSITIVE (08/06/2024 5:53 PM CDT) Troponin I High Sensitive 11 <=14 ng/L 08/06/2024 6:41 PM CDT [facility] Blood BLOOD SPECIMEN / Unknown Venipuncture / Unknown 08/06/2024 5:53 PM CDT 08/06/2024 6:09 PM CDT Vinny oRck DO LAB - CHEMISTRY ORDERABLES F inal Result Performing Organization Address [facility]/ZIP Co de Phone Number [facility] [address] [place] [phone], [facility] [phone] * PT-INR [facility] (08/06/2024 5:53 PM CDT) PT 13.4 12.1 - 14.8 Seconds 08/06/2024 6:30 PM CDT [facility] INR 1.0 See Comment 08/06/2024 6:30 PM CDT [facility] Comment:The suggested therap eutic range for standard coumadin (warfarin) therapy is an INR of 2.0-3.0. For high-risk patients (Mechanical Mitral Valve Prosthesis, etc.), the suggested prophylactic therapeutic range is an INR of 2.5-3.5. Blood BLOOD SPECIMEN / Unknown Venipuncture / Unknown 08/06/2024 5:53 PM CDT 08/06/2024 5:58 PM CDT Carroll Santiago MD LAB - COAGULATION ORDERABLES Final Result Performing Organization Address City/[facility]/ZIP Co de Phone Number [facility] [address] [place] [phone], [facility] [phone] * TROPONIN-I HIGH SENSITIVE BASELINE + 1HR (08/06/2024 5:53 PM CDT) [facility] Troponin I High Sensitive 11 <=14 ng/L 08/06/2024 6:41 PM CDT [facility] Blood BLOOD SPECIMEN / Unknown Venipuncture / Unknown 08/06/2024 5:53 PM CDT 08/06/2024 6:09 PM CDT us Vinny Rock DO LAB - CHEMISTRY ORDERABLES F inal Result [facility] [address] [place] [address], [facility] [phone] * (ABNORMAL) CBC W AUTO DIFFERENTIAL (08/06/2024 5:53 PM CDT) [facility] WBC 4.9 4.0 - 10.7 x10E9/L 08/06/2024 6:16 PM [facility] RBC Count 4.37 3.90 - 5.20 x10E12/L 08/06/2024 6:16 PM [facility] Hemoglobin 13.5 11.9 - 15.8 g/dL 08/06/2024 6:16 PM [facility] Hematocrit 38.4 34.8 - 46.1 % 08/06/2024 6:16 PM [facility] MCV 87.9 80.0 - 98.0 fL 08/06/2024 6:16 PM [facility] MCH 30.9 26.7 - 33.6 pg 08/06/2024 6:16 PM [facility] MCHC 35.2 31.7 - 36.3 g/dL 08/06/2024 6:16 PM [facility] RDW-CV 12.9 11.3 - 14.8 % 08/06/2024 6:16 PM [facility] Platelet Count 115(L) 150 - 420 x10E9/L 08/06/2024 6:16 PM [facility] MPV 10.6 7.8 - 11.4 fL 08/06/2024 6:16 PM [facility] Neutrophil % 63.1 41.0 - 74.0 % 08/06/2024 6:16 PM [facility] Lymphocyte % 27.8 17.0 - 47.0 % 08/06/2024 6:16 PM [facility] Monocyte % 8.7 3.0 - 11.0 % 08/06/2024 6:16 PM [facility] Eosinophil % 0.2 0.0 - 7.0 % 08/06/2024 6:16 PM [facility] Basophil % 0.0 0.0 - 1.6 % 08/06/2024 6:16 PM [facility] Immature Granulocytes % 0.2 0.0 - 1.0 % 08/06/2024 6:16 PM [facility] Neutrophil Absolute 3.06 1.60 - 7.50 x10E9/L 08/06/2024 6:16 PM [facility] Lymphocyte Absolute 1.35 1.00 - 4.40 x10E9/L 08/06/2024 6:16 PM [facility] Monocyte Absolute 0.42 0.15 - 1.00 x10E9/L 08/06/2024 6:16 PM [facility] Eosinophil Absolute 0.01 0.00 - 0.60 x10E9/L 08/06/2024 6:16 PM [facility] Basophil Absolute 0.00 0.00 - 0.13 x10E9/L 08/06/2024 6:16 PM [facility] Blood BLOOD SPECIMEN / Unknown Venipuncture / Unknown 08/06/2024 5:53 PM CDT 08/06/2024 5:59 PM CDT us Carroll Santiago MD LAB - HEMATOLOGY ORDERABLES F inal Result [address] [address], [facility] [phone] * (ABNORMAL) COMPREHENSIVE METABOLIC PANEL (08/06/2024 5:53 PM CDT) [facility] BUN 33(H) 7 - 26 mg/dL 08/06/2024 6:37 PM [facility] Creatinine 1.51(H) 0.56 - 0.96 mg/dL 08/06/2024 6:37 PM [facility] Sodium 141 136 - 145 mmol/L 08/06/2024 6:37 PM [facility] Potassium 2.8(L) 3.5 - 4.5 mmol/L 08/06/2024 6:37 PM [facility] Chloride 100 98 - 107 mmol/L 08/06/2024 6:37 PM [facility] CO2 29 22 - 29 mmol/L 08/06/2024 6:37 PM [facility] Glucose 101(H) 70 - 99 mg/dL 08/06/2024 6:37 PM [facility] Calcium 8.8 8.4 - 10.2 mg/dL 08/06/2024 6:37 PM [facility] Protein Total 6.7 6.0 - 8.3 g/dL 08/06/2024 6:37 PM [facility] Albumin 3.3(L) 3.4 - 5.0 g/dL 08/06/2024 6:37 PM [facility] Bilirubin Total 0.5 0.2 - 1.2 mg/dL 08/06/2024 6:37 PM [facility] Alkaline Phosphatase 81 40 - 150 U/L 08/06/2024 6:37 PM [facility] ALT 13 5 - 55 U/L 08/06/2024 6:37 PM [facility] AST 21 5 - 34 U/L 08/06/2024 6:37 PM [facility] Anion Gap 12 6 - 16 08/06/2024 6:37 PM [facility] BUN/Creatinine Ratio 22 7 - 23 08/06/2024 6:37 PM [facility] Osmolality Calculated 299(H) 275 - 295 mOsm/kg 08/06/2024 6:37 PM [facility] Albumin/Globulin Ratio 1.0(L) 1.1 - 2.3 08/06/2024 6:37 PM [facility] eGFR by CKD-EPI 36(L) >=90 mL/min/1.7 3 m2 08/06/2024 6:37 PM CDT [facility] Blood BLOOD SPECIMEN / Unknown Venipuncture / Unknown 08/06/2024 5:53 PM CDT 08/06/2024 6:09 PM CDT us Carroll Santiago MD LAB - CHEMISTRY ORDERABLES Fi nal Result [address] [address], [facility] [phone] * CT BRAIN - Stroke (08/06/2024 5:03 PM CDT) Anatomical Region Laterality Modality Head Computed Tomogra phy 08/06/2024 4:41 PM CDT Impressions 08/06/2024 4:50 PM CDT IMPRESSION: 1.No acute intracranial hemorrhage. 2.Please note that CT is insensitive to nonhemorrhagic strokes and MRI of the brain should be considered, if there is clinical concern for acute cerebral infarction. Disclaimer: 1.Brain areas including the cerebral sulci, the dural sinuses, the cavernous sinuses, the basilar artery/posterior circulation, the craniocervical junction, and the brain stem, may not be well evaluated on noncontrast CT. MRI of the brain is more sensitive for parenchymal changes related to the above-mentioned brain regions. If there is clinical concern for pathology involving the above-mentioned areas, MRI of the brain is recommended for further evaluation. Results of this exam were communicated with closed loop confirmation to Dr. Concepcion by Dr. Marie on 08/06/2024 at 4:41 PM, with read back comprehension and verification. > Interpreting Provider: Tarik Marie MD on 08/06/2024 4:50 PM Narrative 08/06/2024 4:50 PM CDT PROCEDURE: CT BRAIN STROKE, DATE/TIME OF EXAM: 08/06/2024 4:30 PM, LOCATION [facility] INDICATION: Code Stroke EXAMINATION: Computed tomography (CT) of the head without contrast ADDITIONAL CLINICAL INFORMATION: Ordering Provider Reason For Exam: Code stroke. Technologist Note: None. Additional: None. TECHNIQUE: CT of the head was performed without contrast according to standard protocol. CT dose reduction technique was used, including Automated Exposure Control. COMPARISON: No prior study is available for comparison at the time of this dictation. FINDINGS: No acute intra- or extra-axial fluid collections are identified. There is mild cerebral volume loss with associated ex vacuo ventricular dilatation. The basilar cisterns are patent. No mass effect or midline shift is seen. There are patchy foci of hypoattenuation in the bilateral cerebral hemispheres, more chronic along the lateral right frontal lobe subcortical white matter, (series 2, image 23, and series 6, image 32), and perhaps prominent along the left inferior occipital lobe area, unclear whether artifactual; to be correlated clinically as well as patchy foci in the brainstem and the bilateral centrum semiovale. The fowler-white matter differentiation otherwise appears normal. Periventricular white matter hypoattenuation is indicative of chronic small vessel ischemic disease. There is vascular calcification of the carotid siphons. No acute calvarial fracture is identified. The orbits appear normal. The paranasal sinuses are clear. The mastoid air cells are clear. No soft tissue abnormality is identified. Procedure Note Tarik Marie MD - 08/06/2024 PROCEDURE: CT BRAIN STROKE, DATE/TIME OF EXAM: 08/06/2024 4:30 PM,LOCATION [facility] INDICATION: Code Stroke EXAMINATION: Computed tomography (CT) of the head without contrast ADDITIONAL CLINICAL INFORMATION: Ordering Provider Reason For Exam: Code stroke. Technologist Note: None. Additional: None. TECHNIQUE: CT of the head was performed without contrast according to standard protocol. CT dose reduction technique was used, including Automated Exposure Control. COMPARISON: No prior study is available for comparison at the time ofthis dictation. FINDINGS: No acute intra- or extra-axial fluid collections are identified. Thereis mild cerebral volume loss with associated ex vacuo ventriculardilatation. The basilar cisterns are patent. No mass effect or midline shift isseen. There are patchy foci of hypoattenuation in the bilateral cerebral hemispheres, more chronic along the lateral right frontal lobesubcortical white matter, (series 2, image 23, and series 6, image 32), and perhaps prominent along the left inferior occipital lobe area, unclear whether artifactual; to be correlated clinically as well as patchy foci in the brainstem and the bilateral centrum semiovale. The fowler-white matter differentiation otherwise appears normal. Periventricular white matter hypoattenuation is indicative of chronic small vessel ischemic disease. There is vascular calcification of the carotid siphons. No acutecalvarial fracture is identified. The orbits appear normal. The paranasal sinusesare clear. The mastoid air cells are clear. No soft tissue abnormality is identified. IMPRESSION: 1.No acute intracranial hemorrhage. 2.Please note that CT is insensitive to nonhemorrhagic strokes and MRIof the brain should be considered, if there is clinical concern for acute cerebral infarction. Disclaimer: 1.Brain areas including the cerebral sulci, the dural sinuses, the cavernous sinuses, the basilar artery/posterior circulation, the craniocervical junction, and the brain stem, may not be well evaluatedon noncontrast CT. MRI of the brain is more sensitive for parenchymalchanges related to the above-mentioned brain regions. If there is clinicalconcern for pathology involving the above-mentioned areas, MRI of the brain is recommended for further evaluation. Results of this exam were communicated with closed loop confirmation toDr. Concepcion by Dr. Marie on 08/06/2024 at 4:41 PM, with read backcomprehension and verification. > Interpreting Provider: Tarik Marie MD on 08/06/2024 4:50 PM Carroll Santiago MD CT ORDERABLES Final Result * CT ANGIO BRAIN NECK STROKE (08/06/2024 5:03 PM CDT) Anatomical Region Laterality Modality Head Computed Tomogra phy 08/06/2024 5:06 PM CDT Impressions 08/06/2024 6:04 PM CDT IMPRESSION: 1.No acute intracranial hemorrhage. 2.No large arterial occlusions or hemodynamically significant stenoses identified in the head or neck. 3.Pulmonary hypertension. Viz.AI was used for large vessel occlusion detection. > Dictated by Julio White MD, (radiology transporter). ITarik MD have personally reviewed and interpreted this examination/study. > Interpreting Provider: Tarik Marie MD on 08/06/2024 6:04 PM Narrative 08/06/2024 6:04 PM CDT PROCEDURE: CT ANGIO BRAIN NECK STROKE, DATE/TIME OF EXAM: 08/06/2024 5:04 PM, LOCATION [facility] INDICATION: Code Stroke ADDITIONAL CLINICAL INFORMATION: Ordering Provider Reason For Exam: Code stroke. Technologist Note: None. Additional: None. EXAMINATION: 1. Computed tomographic (CT) angiography of the head without and with contrast 2. CT angiography of the neck with contrast CONTRAST: IOPAMIDOL 76 % IV SOLN:100 mL TECHNIQUE: CT of the head was performed without contrast according to standard protocol. Then CT angiography of the head and neck was obtained after the uneventful administration of 100 mL Isovue-370 intravenous contrast. Three dimensional postprocessing was performed by the technologist and sent to the workstation for review. Stenosis measurements are based on NASCET criteria. CT dose reduction technique was used, including Automated Exposure Control. COMPARISON: Same day noncontrast head CT from 08/06/2024 FINDINGS: Non-angiographic findings: Please refer to the separately dictated noncontrast head CT for the non-angiographic findings Increased anteroposterior diameter of the chest could represent background emphysematous changes. Tiny airspace/groundglass opacities are nonspecific. There is a 2-3 mm nodule in the right upper lobe, (series 7, image 11), with correct window, indeterminate nondilated main pulmonary artery measuring up to 3.4 cm compatible with pulmonary hypertension. Minimal degenerative changes of the spine. There are scattered small cervical lymph nodes which are nonspecific.. Angiographic findings: There is atherosclerotic disease of the aortic arch. The configuration of the brachiocephalic vessels is typical. There is atherosclerotic calcification of the innominate and subclavian arteries. There is atherosclerotic disease of the right carotid bifurcation and origin of the right internal carotid artery with less than 50 percent focal stenosis by NASCET criteria. Retropharyngeal course of the right carotid artery dictation and the adjacent right internal carotid artery. The right common and internal carotid arteries otherwise appear normal. There is atherosclerotic disease of the left carotid bifurcation and origin of the left internal carotid artery with less than 50 percent focal stenosis by NASCET criteria. The left common and internal carotid arteries otherwise appear normal. The left vertebral artery is dominant. The right vertebral artery is smaller in caliber. Other than mild focal stenosis at their origins due to atherosclerotic disease, the cervical vertebral arteries appear normal. The cervical left carotid and internal carotid arteries are tortuous.. There is atherosclerotic disease involving the distal internal carotid arteries without significant focal stenosis. The anterior and middle cerebral arteries appear normal. The distal vertebral arteries appear normal. The basilar artery and posterior cerebral arteries appear normal. No aneurysms, vascular occlusions, or hemodynamically significant intracranial stenoses are identified. Procedure Note Tarik Marie MD - 08/06/2024 PROCEDURE: CT ANGIO BRAIN NECK STROKE, DATE/TIME OF EXAM: 55:04 PM, LOCATION [facility] INDICATION: Code Stroke ADDITIONAL CLINICAL INFORMATION: Ordering Provider Reason For Exam: Code stroke. Technologist Note: None. Additional: None. EXAMINATION: 1. Computed tomographic (CT) angiography of the head without and with contrast 2. CT angiography of the neck with contrast CONTRAST: IOPAMIDOL 76 % IV SOLN:100 mL TECHNIQUE: CT of the head was performed without contrast according to standard protocol. Then CT angiography of the head and neck was obtained after the uneventful administration of 100 mL Isovue-370 intravenous contrast. Three dimensional postprocessing was performed by the technologist and sent to the workstation for review. Stenosismeasurements are based on NASCET criteria. CT dose reduction technique was used, including Automated Exposure Control. COMPARISON: Same day noncontrast head CT from 08/06/2024 FINDINGS: Non-angiographic findings: Please refer to the separately dictated noncontrast head CT for the non-angiographic findings Increased anteroposterior diameter of the chest could representbackground emphysematous changes. Tiny airspace/groundglass opacities arenonspecific. There is a 2-3 mm nodule in the right upper lobe, (series 7, image 11), with correct window, indeterminate nondilated main pulmonary artery measuring up to 3.4 cm compatible with pulmonary hypertension. Minimal degenerative changes of the spine. There are scattered small cervicallymph nodes which are nonspecific.. Angiographic findings: There is atherosclerotic disease of the aortic arch. The configurationof the brachiocephalic vessels is typical. There is atherosclerotic calcification of the innominate and subclavian arteries. There is atherosclerotic disease of the right carotid bifurcation and origin ofthe right internal carotid artery with less than 50 percent focal stenosisby NASCET criteria. Retropharyngeal course of the right carotid artery dictation and the adjacent right internal carotid artery. The rightcommon and internal carotid arteries otherwise appear normal. There is atherosclerotic disease of the left carotid bifurcation and origin ofthe left internal carotid artery with less than 50 percent focal stenosis by NASCET criteria. The left common and internal carotid arteries otherwise appear normal. The left vertebral artery is dominant. The rightvertebral artery is smaller in caliber. Other than mild focal stenosis at their origins due to atherosclerotic disease, the cervical vertebral arteries appear normal. The cervical left carotid and internal carotid arteriesare tortuous.. There is atherosclerotic disease involving the distal internal carotid arteries without significant focal stenosis. The anterior and middle cerebral arteries appear normal. The distal vertebral arteries appear normal. The basilar artery and posterior cerebral arteries appearnormal. No aneurysms, vascular occlusions, or hemodynamically significant intracranial stenoses are identified. IMPRESSION: 1.No acute intracranial hemorrhage. 2.No large arterial occlusions or hemodynamically significant stenoses identified in the head or neck. 3.Pulmonary hypertension. Viz.AI was used for large vessel occlusion detection. > Dictated by Julio White MD, (radiology transporter). I, Tarik Marie MD have personally reviewed and interpretedthis examination/study. > Interpreting Provider: Tarik Marie MD on 08/06/2024 6:04 PM us Carroll Santiago MD CT ORDERABLES Final Result * INR WHOLE BLOOD - POINT OF CARE (IP) STROKE (08/06/2024 4:52 PM CDT) INR 1.0 0.9 - 1.2 08/06/2024 5:05 PM CDT [facility] Device [id number] 08/06/2024 5:05 PM CDT [facility] Health Concierge ID [id number] 08/06/2024 5:05 PM CDT [facility] Blood BLOOD SPECIMEN / Unknown 08/06/2024 4:52 PM CDT 08/06/2024 5:05 PM CDT us Vinny Rock DO LAB - POINT OF CARE ORDERABL ES Final Result [facility] [address] [place] [address], [place] [phone] * (ABNORMAL) CREATININE - POCT INTERFACED (08/06/2024 4:49 PM CDT) Creatinine POCT 1.18 0.30 - 1.30 mg/dL 08/06/2024 5:05 PM CDT [facility] eGFR 49(L) >=90 mL/min/1.7 3 m2 08/06/2024 5:05 PM CDT [facility] Blood BLOOD SPECIMEN / Unknown 08/06/2024 4:49 PM CDT 08/06/2024 5:05 PM CDT Vinny Rock DO LAB - POINT OF CARE ORDERABL ES Final Result [facility] [address] [place] [address], [place] [phone] from Last 3 Months Insurance MEDICARE MEDICAID LIMITED BENEFIT - [place] MED[place]ARE [place] - [place] [facility] Address: [facility] [address] [place] [address] Advance Directives * Full Code (Latest Code Status on File) Date Activated Date Inactivated Comments 08/06/2024 5:00 PM 08/08/2024 9:15 PM Care Teams Dredge Captain Relationship Specialty [place] [address] [place] [address] PCP - General Family Medicine 08/07/24
--- OUTSIDE RECORDS SUMMARY | 2024-09-02 15:32 | XMS_ITS | Encounter Summary ---
Author Organization [facility] Address [address] [facility] [address] [place] [address] Care Team Providers Care Crusher Screen Repairer Name Role Phone Dilan Metzger MD Primary Care Provider + Encounter Details Date Type Department Care Team (Late st Contact Info) Description 05/16/2016 Orders Only [facility] ProviderSydnee MD [address] [place] [address] Social History Tobacco Use Types Packs/Day Years Used Date Smoking Tobacco: Former Cigarettes Q uit: 05/05/1996 Alcohol Use Standard Drinks/Week Comments Yes 0 (1 standard drink = 0.6 oz pur e alcohol) Comments Unknown Sex and Gender Information Value Date Recorded Sex Assigned at Not on file 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 Historical Provider [facility] Final Result documented in this encounter Visit Diagnoses Not on filedocumented in this encounter Care Teams Crusher Screen Repairer Relationship Specialty Start Date End Date Dilan Metzger MD PCP - General 04/13/09 documented as of this encounter
--- OUTSIDE RECORDS SUMMARY | 2024-09-02 15:32 | XMS_ITS | Encounter Summary ---
Author Organization [facility] Address [address] [place] [address] Care Team Providers Care Data Management Consultant Name Role Phone Dilan Metzger MD Primary Care Provider [phone] Encounter Details Date Type Department Care Team (Late st Contact Info) Description 02/01/2016 Abstract [facility] Conversion Dilan Metzger MD [address] [place] [address] Social History Tobacco Use Types Packs/Day Years Used Date Smoking Tobacco: Never Assessed Comments Unknown Sex and Gender Information Value Date Recorded Sex Assigned at Not on file Legal Sex Female 7:50 PM CDT Gender Identity Not on file Sexual Orientation Not on file documented as of this encounter Miscellaneous Notes * Letter - Dilan Metzger MD - 02/01/2016 12:00 AM CDT Feb 01, 2016 Devorah Servin [address] [place] [address] Dear Devorah Servin, Thank you for choosing [facility] for your health care needs. We appreciate the opportunity to help you maintain your well being. You recently had lab work done. Your results came back normal, no changes needed. Please remember to follow up as discussed at yourlast appointment. If you have any questions please feel free to call the office at [phone], Option #3 or Option #1 to make an appointment to discuss these results. 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 Family & Internal Medicine [facility] [address] [place] [address] Dilan Metzger MD [address] [address] documented as of this encounter Visit Diagnoses Not on filedocumented in this encounter Additional Health Concerns Infection Onset Date Last Indicated Resolved Time COVID-19 Rule Out 02/18/2020 02/18/2020 02/20/2020 9:00 AM CDT documented as of this encounter Care Teams Data Management Consultant Relationship Specialty [place] [address] [place] [address] PCP - General FAMILY PRACTICE 02/18/18 documented as of this encounter
--- OUTSIDE RECORDS SUMMARY | 2024-09-02 15:32 | XMS_ITS | CONTINUITY OF CARE DOCUMENT ---
Author Name renee duran Address Unknown Organization [facility] Address [address] [facility] [address] [place] [address] Phone [phone] Care Team Providers Care Insurance Healthcare Representative Name Role Phone Asher Akins MD Unavailable [phone] Ahser Akins MD Unavailable [phone] INSURANCE PROVIDERS Payer name Policy type / Coverage type [place] red green party ID [facility] CHRONIC COMPLETE ASSURE (PPO C-SNP) Medicare [id number] HEALTHCARE AND FAMILY SERVICES Medicaid 1 [id number]
== END 2024-09-02 15:02 | disposition home or self-care (01) ==
PROVIDERS: PCP Family Medicine Sports Medicine; Visit Provider Internal Medicine Pulmonary Disease
DX: R91.8 Other nonspecific abnormal finding of lung field (principal)
CPT/HCPCS: 71250